=== PATIENT | female | born 1980 | race African-American/Black ===

== ENCOUNTER 2018-12-25 22:16 | Emergency (ER) | payer MEDICAID ==
[~2018-12-25] VITALS: Ht 157.5 cm; Wt 86.2 kg
[2018-12-26 03:18] VITALS: BP 113/65
[2018-12-26] MEDS ORDERED: IBUPROFEN 800 MG TAB PO ONE (04:00)
== END 2018-12-26 04:26 | disposition home or self-care (01) ==
LOC: ER 22:17
DX: S93.402A Sprain of unspecified ligament of left ankle, initial encounter (principal); F17.210 Nicotine dependence, cigarettes, uncomplicated; X50.1XXA Overexertion from prolonged static or awkward postures, initial encounter; Y93.89 Activity, other specified; Y92.89 Other specified places as the place of occurrence of the external cause; Y99.8 Other external cause status
CPT/HCPCS: 73610

== ENCOUNTER 2024-05-10 06:02 | Inpatient (IN) | payer MEDICAID ==
[2024-05-10] VITALS (9 sets, daily range): BP systolic 125; BP diastolic 85; PULSE 99–114; RESP 20–33; TEMP 97.3; O2SAT 88–99
[~2024-05-10] VITALS: Ht 157.5 cm; Wt 109.0 kg
--- NOTE | 2024-05-10 06:52 | ECG ---
[facility] Test Date: 2024-05-10 Test Time: 06:19:45 Pat Name: KOBE GARIBAY Department: ER Room: [address] [place] [address] Gender: F Carpenter Maintenance: CHEKO : 1980 Requested By: FRANCISCO JAVIER HILARIO Order Number: [id number] Reading MD: Srinath Jackman Measurements Intervals [place] Rate: 128 P: 52 AL: 134 QRS: 6 QRSD: 80 T: 3 QT: 309 QTc: 451 Interpretive Statements Sinus tachycardia Ventricular premature complex Aberrant complex Probable left atrial enlargement Borderline T wave abnormalities Electronically Signed On 05-11-2024 17:41:49 PST by Srinath Jackman Please click the below link to view image of tracing.
[2024-05-10] MEDS: ACETAMINOPHEN 500 MG TAB or CAP PO ONE (06:54)
--- NOTE | 2024-05-10 06:55 | ED.PDOC ---
SOB-HPI HPI Comments 43y F who presents to the ED via EMS for chief complaint of flu-like symptoms. Pt states earlier this AM, she has been having shortness of breath for the past few days with associated nasuea, vomiting and diarrhea. EMS upon arrival, noted pt had 02 sat at 85% and pt was given Duo Neb treatment prior to ED arrival. Pt upon ED arrival,taken off oxygen and pt had desaturation to 86% and pt was placed on 15 L via NRB. Pt states she had had recent sick contacts and states she has family member is hospitalized at with similar symptoms. Pt in the ED noted to also be febrile at 102.7 F and heart rate of 122 in the ED. 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 History Social History Smoker: Cigarettes Alcohol: Denies ETOH Use Drugs: Denies Drug Use Lives In: Home Constitutional: denies: chills, diaphoresis, fatigue, fever, malaise, sweats, w eakness, others EENTM: denies: blurred vision, double vision, ear bleeding, ear discharge, ear drainage, ear pain, ear ringing, eye pain, eye redness, hearing loss, mouth pain, mouth swelling, nasal discharge, nose bleeding, nose congestion, nose pain, photophobia, tearing, throat pain, throat swelling, voice changes, others Respiratory: reports: cough, SOB at rest, shortness of breath, SOB with excertion; denies: hemoptysis, orthopnea, stridor, wheezing, others Cardiovascular: denies: chest pain, dizzy spells, diaphoresis, Dyspnea on exertion, edema, irregular heart beat, left arm pain, lightheadedness, palpit ations, PND, syncope, others Gastrointestinal: reports: nausea, vomiting; denies: abdomen distended, abdominal pain, blood streaked bowels, constipated, diarrhea, dysphagia, difficulty swallowing, hematemesis, melena, poor appetite, poor fluid intake, rectal bleeding, rectal pain, others Genitourinary: denies: abnormal vagina bleeding, burning, dyspareunia, dysuria, flank pain, frequency, hematuria, incontinence, pain, , vagina discharge, urgency, others Neurological: denies: dizziness, fainting, headache, left sided numbness, left sided weakness, numbness, paresthesia, pre-existing deficit, right sided numbness, right sided weakness, seizure, speech problems, tingling, tremors, weakness, others Musculoskeletal: denies: back pain, gout, joint pain, joint swelling, muscle pain, muscle stiffness, neck pain, others Integumetry: denies: bruises, change in color, change in hair/nails, dryness, laceration, lesions, lumps, rash, wounds, others Allergic/Immunocompromised: denies: Difficulty Healing, Frequent Infections, Hives, Itching, others Hematologic/Lymphatic: denies: anemia, blood clots, easy bleeding, easy bruising, swollen glands, others Endocrine: denies: excessive hunger, excessive sweating, excessive thirst, excessive urination, flushing, intolerance to cold, intolerance to heat, unexpl ained weight gain, unexplained weight loss, others Psychiatric: denies: anxiety, bipolar disorder, depression, hopeless, panic disorder, schizophrenia, sleepless, suicidal, others All Other Systems: Reviewed and Negative Physical Exam General Appearance: Moderate Distress HEENT: Normal ENT Inspection, Pharynx Normal, TMs Normal Neck: Full Range of Motion, Non-Tender, Normal, Normal Inspection Respiratory: Crackles, Other (Tachypnea) Cardiovascular: Tachycardia Breast Exam: Deferred Gastrointestinal: No Organomegaly, Non Tender, No Pulsatile Mass, Normal Bowel Sounds, Soft Genitalia: Deferred Pelvic: Deferred Rectal: Deferred Extremities: No calf tenderness, Normal capillary refill, Normal inspection, Normal range of motion, Non-tender, No pedal edema Neurologic: Alert, cushion builder II-XII nml as Tested, No Motor Deficits, Normal Affect, Normal Mood, No Sensory Deficits Cerebellar Function: Normal Reflexes: Normal Skin: Dry, Normal Color, Warm Lymphatic: No Adenopathy Was a procedure done? Was a procedure done?: No Differential Dx Differential Diagnosis: CHF, COPD, Pneumonia, Pulmonary Embolism, Respiratory Distress Comments COVID, Influenza A and B, acute respiratory failure X-Ray, Labs, Meds, VS Vital Signs Date Time Temp Pulse Resp B/P (MAP) Pulse Ox O2 Delivery O2 Flow Rate FiO2 05/10/24 07:58 110 22 98 Simple Mask* 6 50 11/21/24 07:58 110 22 125/85 (98) 98 05/10/24 06:46 97.3 122 25 119/77 (91) 96 97.3 05/10/24 06:19 128 05/10/24 06:05 102.7 122 20 127/86 (100) 95 Lab Test 05/10/24 07:13 05/10/24 07:05 05/10/24 06:36 Range/Units Lactic Acid Level 1.7 0.4-2.0 mmol/L Influenza Type A Antigen Positive Negative Influenza Type B Antigen Negative Negative SARS-CoV-2 Antigen (Rapid) Negative NEGATIVE White Blood Count 18.5 H 4.4-10.8 10^3/uL Red Blood Count 4.16 4.0-5.20 10^6/uL Hemoglobin 12.0 L 12.2-16.2 g/dL Hematocrit 36.2 36.0-46.0 % Mean Corpuscular Volume 87.0 80.0-100.0 fL Mean Corpuscular Hemoglobin 28.9 28.0-32.0 pg Mean Corpuscular Hemoglobin Concent 33.2 32.0-36.0 g/dL Red Cell Distribution Width 14.3 11.8-14.3 % Platelet Count 273 140-450 10^3/uL Mean Platelet Volume 8.9 6.9-10.8 fL Neutrophils (%) (Auto) 89.4 H 37.0-80.0 % Lymphocytes (%) (Auto) 5.4 L 10.0-50.0 % Monocytes (%) (Auto) 4.6 0.0-12.0 % Eosinophils (%) (Auto) 0.0 0.0-7.0 % Basophils (%) (Auto) 0.6 0.0-2.0 % Neutrophils # (Auto) 16.5 H 1.6-8.6 10 ^3/uL Lymphocytes # (Auto) 1.0 0.4-5.4 10 ^3/uL Monocytes # (Auto) 0.8 0-1.3 10 ^3/uL Eosinophils # (Auto) 0 0-0.8 10 ^3/uL Basophils # (Auto) 0.1 0-0.2 10 ^3/uL Nucleated Red Blood Cells 0.0 % Sodium Level 138 136-145 mmol/L Potassium Level 2.9 L 3.5-5.1 mmol/L Chloride Level 104 98-107 mmol/L Carbon Dioxide Level 26 20-31 mmol/L Anion Gap 8 5-15 Blood Urea Nitrogen 7 L 9-23 mg/dL Creatinine 0.69 0.550-1.02 mg/dL Glomerular Filtration Rate Calc 112 >90 mL/min BUN/Creatinine Ratio 10.1 10.0-20.0 Serum Glucose 134 H 74-106 mg/dL Calcium Level 8.8 8.7-10.4 mg/dL Troponin I High Sensitivity 136 *H </=34 ng/L Beta HCG, Quantitative 0.1 L 1.5-4.2 mIU/mL Current Medications Medications (Trade) Dose Ordered Sig/Julio Route Start Time Stop Time Status Last Admin Acetaminophen (Tylenol Tablet) 1,000 mg ONCE ONCE PO 05/10/24 06:45 05/10/24 06:46 DC 05/10/24 06:54 [place] [address] Ph: [phone] DIAGNOSTIC IMAGING Diagnostic Imaging Report : [id number] Signed PATIENT: KOBE GARIBAY DENSAMANTHAACCT: [id number] UNIT: [id number] : 1980 LOC: ER ROOM / BED: / AGE / SEX: 43 / F ADM STATUS: REG ER SERVICE 0 ORDERING PHYSICIAN: FRANCISCO JAVIER PIERCE MD PROCEDURE(s): CXRP - CHEST PORTABLE REASON: sob ORDER NUMBER(s): [id number], ACCESSION NUMBER(s): [id number] CHEST RADIOGRAPH Indication: sob Technique: Single frontal view of the chest was obtained Comparison: None FINDINGS: Lines and Tubes: None Lungs: Patchy multifocal opacities in both lungs. Pleura: No effusion. No pneumothorax. Cardiomediastinal contours: Unremarkable Bones: No acute osseous abnormality. IMPRESSION: 1. Patchy multifocal opacities which may reflect multifocal pneumonia in the appropriate clinical setting. Pulmonary nodules not excluded. ATED BY: JERRY YOUNGBLOOD MD DICTATED DATE/TIME: 05/10/24706 SIGNED BY: JERRY YOUNGBLOOD MD SIGNED DATE/TIME: 05/10/24706 CC: Time of 1ST Reevaluation: 07:30 Reevaluation 1ST: Unchanged Patient Education/Counseling: Diagnosis, Treatment Family Education/Counseling: No Family Present Departure 1 Departure Time of Disposition: 08:21 (Patient presenting with symptoms concerning for septic shock. The patient was found to have multifocal pneumonia in the setting of influenza. Patient's chest x-ray was reviewed by me he is concerning for multifocal pneumonia. Patient's labs reviewed by me concerning for sepsis. Patient receiving antibiotics and Tamiflu fluids bolus.) Impression: Primary Impression: Influenza A Additional Impressions: Multifocal pneumonia Sepsis Qualified Codes: A41.9 - Sepsis, unspecified organism; R65.20 - Severe sepsis without septic shock; J96.01 - Acute respiratory failure with hypoxia Acute hypoxic respiratory failure Disposition: ADMITTED INPATIENT Admit to: HEATHER Condition: Guarded Critical Care Note Critical Care Time?: Yes Critical care comment: Acute hypoxic respiratory distress Authorized and Performed by: Francisco Javier Pierce MD Total critical care time: Approximately 42 minutes Due to a high probability of clinically significant, life threatening deterioration, the patient required my highest level of preparedness to intervene emergently and I personally spent this critical care time directly and personally managing the patient. This critical care time included obtaining a history; examining the patient; pulse oximetry; ordering and review of studies; arranging urgent treatment with development of a management plan; evaluation of patient's response to treatment; frequent reassessment; and, discussions with other providers. This critical care time was performed to assess and manage the high probability of imminent, life-threatening deterioration that could result in multi-organ failure. It was exclusive of separately billable procedures and treating other patients and teaching time. Please see my other sections and the rest of the note for further information on patient assessment and treatment. Stability Stability form required: No Heart Score Heart Score: Heart Score Response (Comments) Value History Slightly Suspicious 0 EKG Repolarization Disturb 1 Age <45 0 Risk Factors 1 or 2 risk factors 1 Troponin >3 x's Normal limit 2 Total 4 I personally scribed for FRANCISCO JAVIER PIERCE MD (RUPERT) on 05/10/24 at 06:55. Mary ctronically submitted by Susy Rodriguez ([email or web address]). I personally scribed for FRANCISCO JAVIER PIERCE MD (RUPERT) on 05/10/24 at 07:16. Electronically submitted by Susy Rodriguez ([email or web address]). FRANCISCO JAVIER PIERCE MD May 10, 2024 06:55
--- NOTE | 2024-05-10 07:10 | DVH ---
CHEST RADIOGRAPH Indication: sob Technique: Single frontal view of the chest was obtained Comparison: None FINDINGS: Lines and Tubes: None Lungs: Patchy multifocal opacities in both lungs. Pleura: No effusion. No pneumothorax. Cardiomediastinal contours: Unremarkable Bones: No acute osseous abnormality. IMPRESSION: 1. Patchy multifocal opacities which may reflect multifocal pneumonia in the appropriate clinical set ting. Pulmonary nodules not excluded.
[2024-05-10 07:11] LABS: Chloride 104 mmol/L (98-107); Potassium 2.9 mmol/L (3.5-5.1); Sodium 138 mmol/L (136-145)
[2024-05-10 07:12] LABS: Anion Gap 8 (5-15); Calcium 8.8 mg/dL (8.7-10.4); Carbon Dioxide 26 mmol/L (20-31)
[2024-05-10 07:14] LABS: Basophils # (auto) 0.1 10 ^3/uL (0-0.2); Basophils % (auto) 0.6 % (0.0-2.0); Eosinophils # (auto) 0 10 ^3/uL (0-0.8); Hematocrit 36.2 % (36.0-46.0); Lymphocytes % (auto) 5.4 % (10.0-50.0); Mean Corpuscular Hemoglobin 28.9 pg (28.0-32.0); Mean Corpuscular Hgb Conc. 33.2 g/dL (32.0-36.0); Monocytes # (auto) 0.8 10 ^3/uL (0-1.3); Monocytes % (auto) 4.6 % (0.0-12.0); Neutrophils # (auto) 16.5 10 ^3/uL (1.6-8.6); Neutrophils % (auto) 89.4 % (37.0-80.0); Platelet Count (auto) 273 10^3/uL (140-450); Red Blood Cells 4.16 10^6/uL (4.0-5.20); Red Cell Distribution Width 14.3 % (11.8-14.3); White Blood Cell 18.5 10^3/uL (4.4-10.8)
[2024-05-10 07:17] LABS: BUN/Creatinine Ratio 10.1 (10.0-20.0); Blood Urea Nitrogen 7 mg/dL (9-23); Glucose 134 mg/dL (74-106)
[2024-05-10 07:41] LABS: Rapid Influenza A Positive (Negative); Rapid Influenza B Negative (Negative)
[2024-05-10 07:45] LABS: COVID19 ANTIGEN SOFIA FIA NEGATIVE (NEGATIVE)
[2024-05-10] MEDS: OSELTAMIVIR 75 MG CAP PO ONE (08:38)
[2024-05-10] MEDS: VANCOMYCIN 1GM/250ML KIT 200 ML IV ONE (08:38)
[2024-05-10] MEDS: SODIUM CHLORIDE 0.9% 2,000 ML IV ONE (08:38)
[2024-05-10] MEDS: AZITHROMYCIN 250 MG TAB PO ONE (08:39)
[2024-05-10] MEDS ORDERED: MORPHINE SULFATE INJ 2 MG/ml SYRG IV PRN (08:45)
[2024-05-10] MEDS ORDERED: guaiFENesin-CODEINE Liq 5 ML UD PO PRN (08:45)
[2024-05-10] MEDS ORDERED: ONDANSETRON HCL 4 MG/2 ML VIAL IV PRN (08:45)
[2024-05-10] MEDS ORDERED: ZOLPIDEM TARTRATE 5 MG TAB PO PRN (08:45)
[2024-05-10] MEDS ORDERED: NITROGLYCERIN 0.4 MG SL TAB SL PRN (08:45)
[2024-05-10] MEDS ORDERED: LORazepam 0.5 MG TAB PO PRN (08:45)
[2024-05-10] MEDS ORDERED: DEXTROSE (50%) 50ML SYRG IV PRN (09:00)
[2024-05-10] MEDS: POTASSIUM EFFERVESENT TAB 25 MEQ PO ONE (09:04)
[2024-05-10] MEDS: MAALOX PLUS or MAALOX 30 ML PO ONE (09:09)
[2024-05-10] MEDS: ASPirin 325 MG TAB PO STA (09:10)
[2024-05-10] MEDS: CLOPIDOGREL BISULFATE 75 MG TAB PO STA (09:11)
[2024-05-10] MEDS: IPRATROPIUM BROM 0.5 MG/2.5ML INH SOL NEB PRN (09:35)
[2024-05-10] MEDS: ALBUTEROL SULF 2.5 MG/0.5ML(0.5%) NEB SOLN NEB PRN (09:35)
[2024-05-10] MEDS: CLOPIDOGREL BISULFATE 75 MG TAB PO SCH (10:00)
[2024-05-10] MEDS: DOCUSATE SOD 100 MG CAP PO SCH (10:00)
[2024-05-10] MEDS: ASPirin 81 mg TAB PO SCH (10:00)
[2024-05-10] MEDS: OSELTAMIVIR 75 MG CAP PO SCH (10:00)
[2024-05-10] MEDS ORDERED: ENOXAPARIN SOD 100 MG/1 ML SYRINGE SC SCH (10:00)
[2024-05-10] MEDS: METOPROLOL TARTRATE 25 MG TAB PO SCH (10:12)
[2024-05-10] MEDS: LISINOPRIL 5 MG TAB PO SCH (10:12)
[2024-05-10] MEDS: predniSONE 20 MG TAB PO SCH (10:13)
[2024-05-10] MEDS: ENOXAPARIN SOD 120 MG/0.8 ML SYRINGE SC SCH (10:13)
--- NOTE | 2024-05-10 10:41 | DVHHP2 ---
History of Present Illness Reason for Visit: shortness of breath chest pain History of Present Illness 43 yo obese patient with cough nausea vomiting active worsening chest pain came to the ed for evaluation of severe hypoxia found to have multifocal pna hypoxia with complainants of chest pain trouble catching her breath as well as trouble managing chest pain patient was found to have elevated trops postive pna Cardiovascular: CAD, HTN Pulmonary: Pneumonia Endocrine: Diabetes Review of Systems Constitutional: Yes: Weakness; No: Fever, Chills, Sweats, Malaise, Other Eyes: No: Pain, Vision change, Conjunctivae inflammation, Eyelid inflammation, Other, Redness ENT: No: Ear pain, Ear discharge, Nose pain, Nose discharge, Nose congestion, Mouth pain, Mouth swelling, Throat pain, Throat swelling, Other Respiratory: Cough, Shortness of breath; No: Dry, SOB with excertion, Wheezing, Hemoptysis, Pleuritic Pain, Sputum, Wheezing, Other Cardiovascular: Chest Pain, Palpitations; No: Orthopnea, Paroxysmal Noc. Dyspnea, Edema, Lt Headedness, Other Gastrointestinal: Nausea, Vomiting; No: Abdominal Pain, Diarrhea, Constipation, Melena, Hematochezia, Other Genitourinary: No Dysuria, No Frequency, No Incontinence, No Hematuria, No Retention, No Other Musculoskeletal: No: other, neck pain, shoulder pain, arm pain, back pain, hand pain, leg pain, foot pain Skin: No: Rash, Lesions, Jaundice, Bruising, Other Neurological: No: Weakness, Numbness, Incoordination, Change in speech, Confusion, Seizures, Other Allergies: Coded Allergies: NO KNOWN ALLERGIES (Unverified , 06/28/12) Medications Current Medications Medications Dose Ordered Sig/Julio Route Start Time Stop Time Status Last Admin Dose Admin Oseltamivir Phosphate 75 mg DAILY PO 05/10/24 10:00 05/15/24 09:59 Albuterol 2.5 mg Q4HWA PRN NEB 05/10/24 08:45 05/10/24 09:35 2.5 MG Ipratropium [place] 0.5 mg Q4HWA PRN NEB 05/10/24 08:45 05/10/24 09:35 0.5 MG Prednisone 40 mg DAILY PO 05/10/24 10:00 05/10/24 10:13 40 MG Cefepime HCl 50 ml @ 12.5 mls/hr Q8HR IV 05/10/24 14:00 Aspirin 81 mg DAILY PO 05/10/24 10:00 Clopidogrel Bisulfate 75 mg DAILY PO 05/10/24 10:00 Atorvastatin Calcium 80 mg HS PO 05/10/24 22:00 Metoprolol Tartrate 25 mg Q12HR PO 05/10/24 10:00 05/10/24 10:12 25 MG Acetaminophen 650 mg Q6HP PRN PO 05/10/24 08:45 Zolpidem Tartrate 5 mg QHSP PRN PO 05/10/24 08:45 Lorazepam 0.5 mg Q6HP PRN PO 05/10/24 08:45 Docusate Sodium 100 mg DAILY PO 05/10/24 10:00 Enoxaparin Sodium 100 mg Q12HR SC 05/10/24 10:00 UNV Ondansetron HCl 4 mg Q4HP PRN IV 05/10/24 08:45 Lisinopril 10 mg DAILY PO 05/10/24 10:00 05/10/24 10:12 10 MG Nitroglycerin 0.4 mg Q5MINP PRN SL 05/10/24 08:45 Morphine Sulfate 2 mg Q30M PRN IV 05/10/24 08:45 Guaifenesin/ Codeine Phosphate 10 ml Q6HP PRN PO 05/10/24 08:45 Diagnostic Test (Pha) 1 strip IQ4HR 05/10/24 12:00 Insulin Human Regular IQ4HR SC 05/10/24 12:00 Dextrose 50 ml UD PRN IV 05/10/24 09:00 Enoxaparin Sodium 110 mg Q12HR SC 05/10/24 10:00 05/10/24 10:13 110 MG Exam Vital Signs Vital Signs Date Time Temp Pulse Resp B/P (MAP) Pulse Ox O2 Delivery O2 Flow Rate FiO2 05/10/24 10:12 134/91 05/10/24 10:12 108 05/10/24 10:00 97.3 22 94 7.0 97.3 05/10/24 09:35 Simple Mask* 60 General Appearance: Alert, Oriented X3, moderate distress HEENT: Atraumatic, PERRLA Respiratory: Clear to auscultation, Normal air movement Cardiovascular: Regular rate, Normal S1, Normal S2 Abdominal: Normal bowel sounds, Soft, No tenderness Extremities: No clubbing, No cyanosis, No edema Skin: No rashes, No breakdown, No significant lesion Neuro: Normal gait, Normal speech Psych/Mental Status: Mood NL Labs/Xrays Labs Test 05/10/24 08:46 05/10/24 07:13 05/10/24 07:05 05/10/24 06:36 Range/Units Troponin I High Sensitivity 166 *H </=34 ng/L Lactic Acid Level 1.7 0.4-2.0 mmol/L Influenza Type A Antigen Positive Negative Influenza Type B Antigen Negative Negative SARS-CoV-2 Antigen (Rapid) Negative NEGATIVE White Blood Count 18.5 H 4.4-10.8 10^3/uL Red Blood Count 4.16 4.0-5.20 10^6/uL Hemoglobin 12.0 L 12.2-16.2 g/dL Hematocrit 36.2 36.0-46.0 % Mean Corpuscular Volume 87.0 80.0-100.0 fL Mean Corpuscular Hemoglobin 28.9 28.0-32.0 pg Mean Corpuscular Hemoglobin Concent 33.2 32.0-36.0 g/dL Red Cell Distribution Width 14.3 11.8-14.3 % Platelet Count 273 140-450 10^3/uL Mean Platelet Volume 8.9 6.9-10.8 fL Neutrophils (%) (Auto) 89.4 H 37.0-80.0 % Lymphocytes (%) (Auto) 5.4 L 10.0-50.0 % Monocytes (%) (Auto) 4.6 0.0-12.0 % Eosinophils (%) (Auto) 0.0 0.0-7.0 % Basophils (%) (Auto) 0.6 0.0-2.0 % Neutrophils # (Auto) 16.5 H 1.6-8.6 10 ^3/uL Lymphocytes # (Auto) 1.0 0.4-5.4 10 ^3/uL Monocytes # (Auto) 0.8 0-1.3 10 ^3/uL Eosinophils # (Auto) 0 0-0.8 10 ^3/uL Basophils # (Auto) 0.1 0-0.2 10 ^3/uL Nucleated Red Blood Cells 0.0 % Sodium Level 138 136-145 mmol/L Potassium Level 2.9 L 3.5-5.1 mmol/L Chloride Level 104 98-107 mmol/L Carbon Dioxide Level 26 20-31 mmol/L Anion Gap 8 5-15 Blood Urea Nitrogen 7 L 9-23 mg/dL Creatinine 0.69 0.550-1.02 mg/dL Glomerular Filtration Rate Calc 112 >90 mL/min BUN/Creatinine Ratio 10.1 10.0-20.0 Serum Glucose 134 H 74-106 mg/dL Calcium Level 8.8 8.7-10.4 mg/dL Beta HCG, Quantitative 0.1 L 1.5-4.2 mIU/mL Assessment/Plan Assessment/Plan Admit Tele Multifocal PNA FLU A positive suspected super imposed bacterial infection IV abx cefepime continued Oseltamivir daily PRN breathing treatments steroids daily patient intermittent Hypoxia RT to follow for breathing treatments Nstemi chest pain protocol morbidly obese patient BMI > 44 Asa Plavix lovenox theraputic Trops elevated suspeced demand ischemia during hypoxia cardio evaluation for possible cath montior closely suspected high risk tachypnea respiratory failure possible monitor for intubation needs if no improvement DM no stated history of DM 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 with hyperglycemia sliding scale while in patient and while on steroids Plan discussed with: Patient My Orders Orders - KOKI STARK MD Procedure Category Date Status Time Oseltamivir 75mg PHA 05/10/24 In Process Capsule (Tamiflu 75mg 10:00 Albuterol Medneb PHA 05/10/24 In Process (Ventolin Medneb) 08:45 Ipratropium Medneb PHA 05/10/24 In Process (Atrovent Medneb) 08:45 Med Neb Initial RT 05/10/24 Logged Treatment 08:36 Prednisone Tablet PHA 05/10/24 In Process 10:00 Cefepime 1gm/ 50ml PHA 05/10/24 In Process (Maxipime 1gm/50ml) 14:00 Admit ADMIT 05/10/24 Transmitted 08:36 Code Status CODE 05/10/24 Transmitted 08:36 Vital Signs MIGUELINA 05/10/24 In Process 08:36 Cardiac DIET 05/10/24 Transmitted Diet-2gna,Lofat,Lochol Breakfast Aspirin Tablet PHA 05/10/24 In Process 10:00 Clopidogrel Bisulfate PHA 05/10/24 In Process (Plavix) 10:00 Atorvastatin (Lipitor) PHA 05/10/24 In Process 22:00 Metoprolol Tartrate PHA 05/10/24 In Process Tablet (Lopressor Ta 10:00 Acetaminophen Tablet PHA 05/10/24 In Process (Tylenol Tablet) 08:45 Zolpidem Tartrate PHA 05/10/24 In Process (Ambien) 08:45 Lorazepam Tablet PHA 05/10/24 In Process (Ativan Tablet) 08:45 Docusate Sodium PHA 05/10/24 In Process Capsule (Colace 10:00 Complete Blood Count LAB 05/11/24 Verified 04:00 Basic Metabolic Panel LAB 05/11/24 Verified 04:00 Ondansetron Hcl PHA 05/10/24 In Process (Zofran) 08:45 Electrocardigram EKG 05/10/24 Logged 08:36 Lisinopril Tablet PHA 05/10/24 In Process (Zestril Tablet) 10:00 Nitroglycerin PHA 05/10/24 In Process Sublingual (Ntrostat 08:45 Morphine Sulfate PHA 05/10/24 In Process Injection 08:45 Stat Ekg For Chest [facility] 05/10/24 In Process Pain 10:20 Notify Of Changes [facility] 05/10/24 In Process From Base 08:36 Horse Identifier For [facility] 05/10/24 In Process 24 Hours 08:36 Emergency Dysrhythmia [facility] 05/10/24 In Process Protocol 08:36 Rhythm Strips Once [facility] 05/10/24 In Process Every Shift 08:36 Oxygen By Nasal RT 05/10/24 Transmitted Cannula 08:36 Electrocardigram EKG 05/10/24 Logged 11:36 Guaifenesin-Codeine PHA 05/10/24 In Process Liquid (Robitussin/C 08:45 * Cardiology Consult CONS 05/10/24 Transmitted 08:36 Glucose Blood PHA 05/10/24 In Process (Accu-Chek Comfort 12:00 Insulin R (Human) PHA 05/10/24 In Process (Insulin R) 12:00 Dextrose 50% Syringe PHA 05/10/24 In Process 09:00 Enoxaparin Sodium PHA 05/10/24 In Process (Lovenox) 10:00 Problem List: (1) NSTEMI (non-ST elevation myocardial infarction) (2) Sepsis (3) Influenza A (4) Multifocal pneumonia (5) Acute hypoxic respiratory failure Date of Service: May 10, 2024 Billing Provider: KOKI STARK MD Common Visit Codes: 25231-[id number] INP/OBS CARE (HIGH) KOKI STARK MD May 10, 2024 10:41
[2024-05-10] MEDS: CEFEPIME 2GM/50ML NS 50 ML IV ONE (11:51)
[2024-05-10 12:04] LABS: Base Excess 2.7 mmol/L (-2.0-3.0)
[2024-05-10] MEDS: LORazepam 0.5 MG TAB PO ONE (12:55)
[2024-05-10] MEDS: ACCU-CHEK COMFORT CURVE STRIP VI SCH (12:55)
[2024-05-10] MEDS: InsuLIN REG 1unit/0.01ml Soln (100units/ml) SC SCH (12:56)
[2024-05-10] MEDS: CEFEPIME 1GM/ 50ML 50 ML IV SCH (13:01)
--- NOTE | 2024-05-10 14:41 | DVHPN2 ---
Assessment/Plan Assessment/Plan ICU progress note Subjective 43-year-old female with hypertension, morbid obesity admitted for NSTEMI and flu a. Objective Physical exam Alert, oriented x3 PERRLA Unable to speak in full sentences Increased work of breathing Morbidly obese Scattered rhonchi S1-S2 tachycardia Abdomen soft nontender Moving all four extremities No lower extremity edema Lab Flu a positive Leukocytosis Troponin elevation Hypokalemia EKG Sinus tach with PVCs Imaging Multiple nodular opacity in chest x-ray Assessment and plan Acute hypoxic respiratory failure Influenza a Superimposed with pneumonia, possible staph aureus Obesity Hypertension Hypokalemia Type 2 IL demand ischemia Admit to the OU If able put on high-flow nasal cannula Maintain oxygen saturation above 94% Tamiflu Cefepime and vancomycin MRSA swab Sputum culture Replete potassium We will hold antihypertensive for now Pulmonary consult Low threshold for intubation Prednisone 40 mg daily Q.4 albuterol and ipratropium Lines PIV Maintain potassium of 4, phosphate of 3 and magnesium of 2 Diet NPO DVT prophylaxis Lovenox Code status full code Goals of care on limited Patient is okay with intubation More than 30 minutes spent in advanced care planning, including discussing code status, medical decision maker, goals of care and disposition planning. 92 critical care time spent on this patient including evaluation, chart review, formulating plan and communication with team, excluding any procedures or point of care imaging Plan discussed with: Patient My Orders Orders - KENNEDY PRIEST MD Procedure Category Date Status Time Potassium Chl PHA 05/10/24 In Process 20meq/100ml 13:00 Magnesium Sulfate PHA 05/10/24 In Process 1gm/100ml 13:00 Respiratory Culture AGA 05/10/24 Logged W/ Gs 13:01 *Consult CONS 05/10/24 Transmitted / 13:42 Transfer Orders XFER 05/10/24 Transmitted 13:57 Date of Service: May 10, 2024 Billing Provider: KENNEDY PRIEST MD Common Visit Codes: [id number] INP/OBS CARE(HIGH), 88492-[id number] CARE 30-74 MIN, 51048-[id number] CARE-EACH +30MIN Secondary Visit Codes: 84162-RUBOVJRG CARE PLAN 30 MINUTES KENNEDY PRIEST MD May 10, 2024 14:41
[2024-05-10] MEDS: POTASSIUM CHL 20MEQ/100ML 100 ML IV SCH (14:54)
[2024-05-10] MEDS: MAGNESIUM SULFATE 1GM/100ML 100 ML IV SCH (14:54)
--- NOTE | 2024-05-10 19:06 | DVHINCON2 ---
Date of service: May 10, [address] Hale Reason for Consultation Acute hypoxic respiratory failure, multifocal pneumonia History of Present Illness 43-year-old woman history of CAD, hypertension who presented with worsening chest pain. Patient was found to have severe hypoxia and multifocal pneumonia on chest x-ray. She was found to have elevated troponins. Pulmonary consultation is called for evaluation of acute hypoxic respiratory failure and multifocal pneumonia. Review of systems: Cough, shortness of breath, generalized weakness, chest pain and palpitations, nausea and vomiting. 14 point review of systems is negative unless otherwise noted above. Past medical history: CAD, hypertension, diabetes mellitus type 2 Past surgical history: None mentioned in prior surgeries. Medications: Reviewed Allergies: No known drug allergies. Family history: No family history of premature CAD. No family history of lung disease. Social history: Cigarette smoker. No alcohol or illicit drug use. Lives at home Allergies: Coded Allergies: NO KNOWN ALLERGIES (Unverified , 06/28/12) Current Medications Current Medications Medications (Trade) Dose Ordered Sig/Julio Route PRN Reason Start Time Stop Time Status Last Admin Oseltamivir Phosphate (Tamiflu 75MG Capsule) 75 mg DAILY PO 05/10/24 10:00 05/15/24 09:59 Albuterol (Ventolin Medneb) 2.5 mg Q4HWA PRN NEB SHORTNESS OF BREATH 05/10/24 08:45 05/10/24 17:59 Ipratropium [place] (Atrovent Medneb) 0.5 mg Q4HWA PRN NEB SHORTNESS OF BREATH 05/10/24 08:45 05/10/24 17:59 Prednisone 40 mg DAILY PO 05/10/24 10:00 05/10/24 10:13 Cefepime HCl 50 ml @ 12.5 mls/hr Q8HR IV 05/10/24 14:00 Aspirin 81 mg DAILY PO 05/10/24 10:00 Aspirin 325 mg ONCE STAT PO 05/10/24 08:36 05/10/24 09:04 DC 05/10/24 09:10 Clopidogrel Bisulfate (Plavix) 75 mg DAILY PO 05/10/24 10:00 05/10/24 12:53 DC Atorvastatin Calcium (Lipitor) 80 mg HS PO 05/10/24 22:00 Metoprolol Tartrate (Lopressor Tablet) 25 mg Q12HR PO 05/10/24 10:00 05/10/24 10:12 Acetaminophen (Tylenol Tablet) 650 mg Q6HP PRN PO MILD PAIN (1-3 PAIN SCALE) 05/10/24 08:45 Zolpidem Tartrate (Ambien) 5 mg QHSP PRN PO FOR INSOMNIA 05/10/24 08:45 05/10/24 12:53 DC Lorazepam (Ativan Tablet) 0.5 mg Q6HP PRN PO ANXIETY 05/10/24 08:45 05/10/24 12:53 DC Docusate Sodium (Colace Capsule) 100 mg DAILY PO 05/10/24 10:00 Enoxaparin Sodium (Lovenox) 100 mg Q12HR SC 05/10/24 10:00 UNV Ondansetron HCl (Zofran) 4 mg Q4HP PRN IV NAUSEA / VOMITING 05/10/24 08:45 05/10/24 12:53 DC Clopidogrel Bisulfate (Plavix) 300 mg ONCE STAT PO 05/10/24 08:36 05/10/24 09:05 DC 05/10/24 09:11 Lisinopril (Zestril Tablet) 10 mg DAILY PO 05/10/24 10:00 05/10/24 10:12 Nitroglycerin (Ntrostat Sublingual) 0.4 mg Q5MINP PRN SL FOR CHEST PAIN 05/10/24 08:45 05/10/24 12:53 DC Morphine Sulfate 2 mg Q30M PRN IV FOR CHEST PAIN 05/10/24 08:45 05/10/24 12:53 DC Guaifenesin/ Codeine Phosphate (Robitussin/ Codeine Liq) 10 ml Q6HP PRN PO FOR COUGH 05/10/24 08:45 05/10/24 12:53 DC Diagnostic Test (Pha) (Accu-Chek Comfort Curve T) 1 strip IQ4HR 05/10/24 12:00 Insulin Human Regular (InsuLIN R) IQ4HR SC 05/10/24 12:00 Dextrose 50 ml UD PRN IV Blood Sugar LESS THAN 60 05/10/24 09:00 Enoxaparin Sodium (Lovenox) 110 mg Q12HR SC 05/10/24 10:00 05/10/24 12:53 DC 05/10/24 10:13 Potassium Chloride 100 ml @ 50 mls/hr Q2H IV 05/10/24 13:00 05/10/24 16:59 DC 05/10/24 17:01 Magnesium Sulfate/ Dextrose 100 ml @ 100 mls/hr Q1HR IV 05/10/24 13:00 05/10/24 14:59 DC 05/10/24 15:39 Vital Signs Vital Signs Date Time Temp Pulse Resp B/P (MAP) Pulse Ox O2 Delivery O2 Flow Rate FiO2 05/10/24 18:00 114 24 94 05/10/24 18:00 Mask 8.0 05/10/24 18:00 127/81 (96) 05/10/24 18:00 60 05/10/24 10:00 97.3 97.3 Physical Exam Gen.: Patient lying in bed in no apparent distress. On supplemental oxygen. Head: Normocephalic, atraumatic Eyes: EOMI/PERRLA. Ears: Normal hearing. Normal anatomy. Neck/trachea: Trachea midline, supple. Nose: Normal external anatomy. Mouth: Moist mucous membranes. Chest: Fair air entry bilaterally. No wheezing. Scattered rhonchi. Cardio vascular: Positive S1, positive S2. Regular rate and rhythm. Abdomen: Positive bowel sounds in all 4 quadrants. Soft, non-tender, non- distended. : Deferred. Rectal: Deferred Skin: Warm, dry. Extremities: 2+ radial pulses bilaterally. No lower extremity edema. Neuro: Awake, alert, oriented x3. No gross motor or sensory deficits. Cranial nerves II through XII intact. Gait not assessed. Labs/Diagnostic Data Labs Test 05/10/24 16:05 05/10/24 11:53 05/10/24 10:41 05/10/24 07:13 Range/Units Blood Gas Specimen Type Arterial Blood Gas Sample Site Left radial Blood Gas Patient Temperature 37.0 Arterial Blood Date Drawn [id number] Arterial Blood pH 7.396 7.350-7.450 Arterial Blood Partial Pressure CO2 37.5 32.0-45.0 mmHg Arterial Blood Partial Pressure O2 67.7 L 83.0-108.0 mmHg Arterial Blood HCO3 22.5 21.0-28.0 mmol/L Arterial Blood Oxygen Saturation 93.0 L 94.0-98.0 % Arterial Blood Base Excess -2.0 -2.0-3.0 mmol/L Arterial Blood Oxyhemoglobin 91.6 L 94.0-98.0 % Arterial Blood Carboxyhemoglobin 1.0 0.5-1.5 % Arterial Blood Methemoglobin 0.5 0.0-1.5 % Juan Pablo Test Yes Blood Gas Total Hemoglobin 12.50 12.0-16.0 g/dL Blood Gas Liter Flow 8.00 Blood Gas Modality Mask - simple FiO2 % 52.0 Blood Gas Critical Value Read Back yes Blood Gas Notified Whom gabriela Spencer md Blood Gas Notified Time [id number] Blood Gas Notified By Troponin I High Sensitivity 135 *H </=34 ng/L Lactic Acid Level 1.7 0.4-2.0 mmol/L Test 05/10/24 07:05 05/10/24 06:36 Range/Units Influenza Type A Antigen Positive Negative Influenza Type B Antigen Negative Negative SARS-CoV-2 Antigen (Rapid) Negative NEGATIVE White Blood Count 18.5 H 4.4-10.8 10^3/uL Red Blood Count 4.16 4.0-5.20 10^6/uL Hemoglobin 12.0 L 12.2-16.2 g/dL Hematocrit 36.2 36.0-46.0 % Mean Corpuscular Volume 87.0 80.0-100.0 fL Mean Corpuscular Hemoglobin 28.9 28.0-32.0 pg Mean Corpuscular Hemoglobin Concent 33.2 32.0-36.0 g/dL Red Cell Distribution Width 14.3 11.8-14.3 % Platelet Count 273 140-450 10^3/uL Mean Platelet Volume 8.9 6.9-10.8 fL Neutrophils (%) (Auto) 89.4 H 37.0-80.0 % Lymphocytes (%) (Auto) 5.4 L 10.0-50.0 % Monocytes (%) (Auto) 4.6 0.0-12.0 % Eosinophils (%) (Auto) 0.0 0.0-7.0 % Basophils (%) (Auto) 0.6 0.0-2.0 % Neutrophils # (Auto) 16.5 H 1.6-8.6 10 ^3/uL Lymphocytes # (Auto) 1.0 0.4-5.4 10 ^3/uL Monocytes # (Auto) 0.8 0-1.3 10 ^3/uL Eosinophils # (Auto) 0 0-0.8 10 ^3/uL Basophils # (Auto) 0.1 0-0.2 10 ^3/uL Nucleated Red Blood Cells 0.0 % Sodium Level 138 136-145 mmol/L Potassium Level 2.9 L 3.5-5.1 mmol/L Chloride Level 104 98-107 mmol/L Carbon Dioxide Level 26 20-31 mmol/L Anion Gap 8 5-15 Blood Urea Nitrogen 7 L 9-23 mg/dL Creatinine 0.69 0.550-1.02 mg/dL Glomerular Filtration Rate Calc 112 >90 mL/min BUN/Creatinine Ratio 10.1 10.0-20.0 Serum Glucose 134 H 74-106 mg/dL Calcium Level 8.8 8.7-10.4 mg/dL Beta HCG, Quantitative 0.1 L 1.5-4.2 mIU/mL Assessment Impression: Acute hypoxic respiratory failure Multifocal pneumonia Influenza type a Nicotine dependence Morbid obesity with a BMI of 44 Anxiety Hypokalemia Plan: Supplemental oxygen . on 8 L via simple mask Keep O2 saturation above 92%. Continue antibiotics Send sputum for Gram stain and culture if able to produce. Tamiflu course for influenza type A Chest x-ray imaging report reviewed. Multifocal pneumonia. Continue antibiotics. Send sputum for Gram stain and culture if able to produce. Bronchodilators Anxiolytic as needed Monitor electrolytes. Supplement potassium. Smoking cessation discussed for greater than 10 minutes. Accu-Cheks, insulin sliding scale Prognosis: Guarded given multiple comorbidities. Rest of plan per hospitalist and other consultants. Thank you Dr. Hale for allowing me to participate in this patient's care. Further recommendations will depend on patient's clinical course. Please do not hesitate to contact me if you have any questions or concerns. This medical document was created using an electronic medical record system with [employer] system. Although this document has been carefully reviewed, there may still be some phonetic and typographical errors. These areas are purely typographical due to imperfections of the software programs, and do not reflect any compromise in the patient's medical care. Plan discussed with: Patient, Other (RN, MD) ARTHUR WEBB MD May 10, 2024 19:06
[2024-05-10] MEDS: ATORVASTATIN 20 MG TAB PO SCH (21:52)
[2024-05-10] MEDS: MORPHINE SULFATE INJ 2 MG/ml SYRG IV PRN (22:34)
[2024-05-11 06:05] LABS: Basophils # (auto) 0 10 ^3/uL (0-0.2); Basophils % (auto) 0.2 % (0.0-2.0); Eosinophils # (auto) 0 10 ^3/uL (0-0.8); Hematocrit 31.9 % (36.0-46.0); Hemoglobin 10.7 g/dL (12.2-16.2); Lymphocytes # (auto) 1.1 10 ^3/uL (0.4-5.4); Lymphocytes % (auto) 6.3 % (10.0-50.0); Mean Corpuscular Hemoglobin 29.2 pg (28.0-32.0); Mean Corpuscular Hgb Conc. 33.5 g/dL (32.0-36.0); Monocytes % (auto) 5.5 % (0.0-12.0); Neutrophils # (auto) 15.3 10 ^3/uL (1.6-8.6); Nucleated Red Blood Cells % 0.1 %; Platelet Count (auto) 263 10^3/uL (140-450); Red Blood Cells 3.66 10^6/uL (4.0-5.20); Red Cell Distribution Width 14.6 % (11.8-14.3); White Blood Cell 17.3 10^3/uL (4.4-10.8)
[2024-05-11 06:23] LABS: Alanine Aminotransferase 11 U/L (7-40); Alkaline Phosphatase 69 U/L (46-116); Anion Gap 5 (5-15); BUN/Creatinine Ratio 13.6 (10.0-20.0); Blood Urea Nitrogen 8 mg/dL (9-23); Calcium 8.3 mg/dL (8.7-10.4); Carbon Dioxide 29 mmol/L (20-31); Chloride 105 mmol/L (98-107); Glucose 130 mg/dL (74-106); Magnesium 2.5 mg/dL (1.6-2.6); Potassium 3.6 mmol/L (3.5-5.1); Sodium 139 mmol/L (136-145)
[2024-05-11 06:24] LABS: Albumin 3.3 g/dL (3.2-4.8); Aspartate Aminotransferase 35 U/L (13-40); Bilirubin, Total 0.6 mg/dL (0.2-1.0); Phosphorus 1.4 mg/dL (2.4-5.1); Total Protein 6.7 g/dL (5.7-8.2)
[2024-05-11 06:27] VITALS: PULSE 115; RESP 24; O2SAT 93; O2SAT 94
[2024-05-11] MEDS: ACETAMINOPHEN 325 MG TAB PO PRN (08:32)
[2024-05-11] MEDS ORDERED: VANCOMYCIN PER PHARMACY 0 MG IV SCH (09:00)
[2024-05-11 09:18] VITALS: BP 133/92; PULSE 124; RESP 26; O2SAT 94
[2024-05-11 09:35] LABS: Base Excess 3.3 mmol/L (-2.0-3.0)
[2024-05-11] MEDS: VANCOMYCIN 1GM/250ML KIT 200 ML IV SCH (10:26)
[2024-05-11] MEDS ORDERED: TIZA1TAB20 PO (10:54)
[2024-05-11] MEDS ORDERED: BUPR-60 PO (10:54)
[2024-05-11] MEDS ORDERED: [UNRECOGNIZED DRUG - CODE] SC (10:54)
[2024-05-11] MEDS ORDERED: ERGO1CAP23 PO (10:54)
[2024-05-11] MEDS ORDERED: MELO7.5T7 PO (10:54)
[2024-05-11] MEDS ORDERED: HYDR12.59 PO (10:54)
[2024-05-11 13:14] VITALS: BP 126/78; PULSE 104; RESP 24; O2SAT 96
[2024-05-11 16:10] LABS: Urine Bacteria None Seen /hpf (None Seen)
[2024-05-11 16:38] LABS: Urine Blood TRACE /uL (Negative); Urine Clarity Clear (Clear); Urine Color Yellow (Yellow); Urine Mucus FEW (None Seen); Urine Protein, UAD 2+ (Negative); Urine Specific Gravity 1.027 (1.001-1.035); Urine Urobilinogen 2 mg/dL (Negative); Urine WBC 4 /hpf (0 - 5); Urine pH 6.5 (5.0-9.0)
[2024-05-11 18:49] VITALS: BP 125/83; PULSE 103; RESP 30; O2SAT 94
[2024-05-11] MEDS ORDERED: HYDROcodone-ACET 5/325MG TAB PO PRN (19:00)
[2024-05-11] MEDS: ONDANSETRON HCL 4 MG/2 ML VIAL IV ONE (19:22)
[2024-05-11 20:15] VITALS: PULSE 96; RESP 30; O2SAT 96
--- NOTE | 2024-05-11 20:48 | DVHPN2 ---
Progress Note - Dictate Date Seen: May 11, 2024 Medical Necessity Reason Pt with a Central, PICC or Fol: No Subjective Patient seen and examined at bedside. Remains on supplemental oxygen Overnight events reviewed. vital signs Vital Sign Date Time Temp Pulse Resp B/P (MAP) Pulse Ox O2 Delivery O2 Flow Rate FiO2 05/11/24 20:15 96 30 96 Simple Mask* 10 99 05/11/24 20:02 127/82 05/11/24 18:52 99.0 99.0 Total Intake and Output 05/10/24 05/10/24 05/11/24 15:00 23:00 07:00 Intake Total 100 ml 50 ml Balance 100 ml 50 ml medications Current Medications Medications Dose Ordered Sig/Julio Route Start Time Stop Time Status Last Admin Dose Admin Oseltamivir Phosphate 75 mg DAILY PO 05/10/24 10:00 05/15/24 09:59 05/11/24 11:28 75 MG Albuterol 2.5 mg Q4HWA PRN NEB 05/10/24 08:45 05/11/24 18:49 2.5 MG Ipratropium [place] 0.5 mg Q4HWA PRN NEB 05/10/24 08:45 05/11/24 18:49 0.5 MG Prednisone 40 mg DAILY PO 05/10/24 10:00 05/11/24 10:27 40 MG Cefepime HCl 50 ml @ 12.5 mls/hr Q8HR IV 05/10/24 14:00 05/11/24 14:19 12.5 MLS/HR Aspirin 81 mg DAILY PO 05/10/24 10:00 05/11/24 10:27 81 MG Atorvastatin Calcium 80 mg HS PO 05/10/24 22:00 05/10/24 21:52 80 MG Metoprolol Tartrate 25 mg Q12HR PO 05/10/24 10:00 05/11/24 10:30 25 MG Acetaminophen 650 mg Q6HP PRN PO 05/10/24 08:45 05/11/24 15:54 650 MG Docusate Sodium 100 mg DAILY PO 05/10/24 10:00 05/11/24 10:28 100 MG Enoxaparin Sodium 100 mg Q12HR SC 05/10/24 10:00 UNV Lisinopril 10 mg DAILY PO 05/10/24 10:00 05/11/24 10:31 10 MG Diagnostic Test (Pha) 1 strip IQ4HR 05/10/24 12:00 05/11/24 20:08 1 STRIP Insulin Human Regular IQ4HR SC 05/10/24 12:00 05/11/24 16:51 2 UNITS Dextrose 50 ml UD PRN IV 05/10/24 09:00 Morphine Sulfate 2 mg Q4HPRN PRN IV 05/10/24 22:15 05/11/24 19:23 2 MG Vancomycin HCl 0 ml @ 0 mls/hr UD IV 05/11/24 09:00 Vancomycin HCl 200 ml @ 200 mls/hr Q8H IV 05/11/24 10:00 05/11/24 18:12 200 MLS/HR Acetaminophen/ Hydrocodone Bitart 1 tab Q6HPRN PRN PO 05/11/24 19:00 objective Gen.: Patient lying in bed in no apparent distress. On supplemental oxygen. Head: Normocephalic, atraumatic. Eyes: EOMI/PERRLA. Ears: Normal hearing. Normal anatomy. Neck/trachea: Trachea midline, supple. Nose: Normal external anatomy. Mouth: Moist mucous membranes. Chest: Decreased air entry bilaterally. No wheezing or rhonchi. Cardiovascular: Positive S1, positive S2. Regular rate and rhythm. Abdomen: Positive bowel sounds in all 4 quadrants. Soft, non-tender, non- distended. : Deferred. Rectal: Deferred. Skin: Warm, dry. Intact. Extremities: 2+ radial pulses bilaterally. No lower extremity edema. Neuro: Awake, alert, oriented x3. No gross motor or sensory deficits. Cranial nerves II through XII intact. Gait not assessed. laboratory and microbiology Laboratory Tests 05/11/24 05:44 Test 05/11/24 05:44 Range/Units Serum Glucose 130 H 74-106 mg/dL Assessment/Plan Impression: Acute hypoxic respiratory failure Multifocal pneumonia Influenza type a Nicotine dependence Morbid obesity with a BMI of 44 Anxiety Hypokalemia Events: Remains on high flow O2 at flow rate 40 LPM, FiO2 60% Taper O2 as tolerated Continue Tamiflu. Continue bronchodilators Continue antibiotics Pain control Avoid oversedation Diet and lifestyle modifications for weight reduction Labs and imaging reviewed. Rest of plan as noted below. Plan: Supplemental oxygen . Keep O2 saturation above 92%. Continue antibiotics Send sputum for Gram stain and culture if able to produce. Tamiflu course for influenza type A Chest x-ray imaging report reviewed. Multifocal pneumonia. Continue antibiotics. Send sputum for Gram stain and culture if able to produce. Bronchodilators Anxiolytic as needed Monitor electrolytes. Supplement potassium. Smoking cessation discussed for greater than 10 minutes. Accu-Cheks, insulin sliding scale Prognosis: Guarded given multiple comorbidities. Condition: Critical Rest of plan per hospitalist and other consultants. A total of 35 minutes of critical care time was spent reviewing the patient record, examining the patient, making a diagnostic and therapeutic plan, discussing this plan with the medical personnel, following up on diagnostic studies and following the patient for clinical stability excluding any and all procedures. At least 50% of this time was spent in direct, [id number] contact. Thank you Dr. Hale for allowing me to participate in this patient's care. Further recommendations will depend on patient's clinical course. Please do not hesitate to contact me if you have any questions or concerns. This medical document was created using an electronic medical record system with [employer] dictation system. Although this document has been carefully reviewed, there may still be some phonetic and typographical errors. These areas are purely typographical due to imperfections of the software programs, and do not reflect any compromise in the patient's medical care. Plan discussed with: Other (JUAN LUIS Ayala) Critical Care Time(min): 35 ARTHUR WEBB MD May 11, 2024 20:48
--- NOTE | 2024-05-11 20:49 | DVHPN2 ---
Assessment/Plan Assessment/Plan ICU progress note Subjective 43-year-old female with hypertension, morbid obesity admitted for NSTEMI and flu a. improved with HFNC Objective Physical exam Alert, oriented x3 PERRLA on HFNC Morbidly obese Scattered rhonchi S1-S2 tachycardia Abdomen soft nontender Moving all four extremities No lower extremity edema Lab Flu a positive Leukocytosis Troponin elevation Hypokalemia EKG Sinus tach with PVCs Imaging Multiple nodular opacity in chest x-ray Assessment and plan Acute hypoxic respiratory failure Influenza a Superimposed with pneumonia, possible staph aureus Obesity Hypertension Hypokalemia Type 2 CO demand ischemia Admit to HEATHER If able put on high-flow nasal cannula Maintain oxygen saturation above 94% Tamiflu Cefepime and vancomycin MRSA swab Sputum culture Replete potassium restart home meds Pulmonary consult c/w HFNC Prednisone 40 mg daily Q.4 albuterol and ipratropium Lines PIV Maintain potassium of 4, phosphate of 3 and magnesium of 2 Diet NPO DVT prophylaxis Lovenox Code status full code Goals of care on limited Patient is okay with intubation 94 critical care time spent on this patient including evaluation, chart review, formulating plan and communication with team, excluding any procedures or point of care imaging Plan discussed with: Patient My Orders Orders - KENNEDY PRIEST MD Procedure Category Date Status Time Vancomycin Per PHA 05/11/24 In Process Pharmacy 09:00 Mrsa Screen AGA 05/11/24 Logged 08:58 Abg W/ Co-Ox RT 05/11/24 Logged 11:00 Vancomycin 1gm/200ml PHA 05/11/24 In Process [facility] 10:00 Vancomycin,Trough LAB 05/12/24 Verified 17:00 Complete Blood Count LAB 05/12/24 Verified 04:00 Creatinine LAB 05/12/24 Verified 04:00 Vancomycin Per MIGUELINA 05/11/24 In Process Pharmacy Protoc 09:26 Basic Metabolic Panel LAB 05/12/24 Verified 04:00 Magnesium LAB 05/12/24 Verified 04:00 Phosphorus LAB 05/12/24 Verified 04:00 Date of Service: May 11, 2024 Billing Provider: KENENDY PRIEST MD Common Visit Codes: [id number] INP/OBS CARE(HIGH), [id number] CARE 30-74 MIN, [id number] CARE-EACH +30MIN KENNEDY PRIEST MD May 11, 2024 20:49
[2024-05-11 22:39] VITALS: BP 121/83; PULSE 94; RESP 26; O2SAT 80
[2024-05-12] VITALS (7 sets, daily range): BP systolic 130–140; BP diastolic 86–97; PULSE 94–107; RESP 24–31; O2SAT 90–96
[2024-05-12] MEDS: ONDANSETRON HCL 4 MG/2 ML VIAL IV PRN (03:38)
[2024-05-12 04:56] LABS: Basophils # (auto) 0 10 ^3/uL (0-0.2); Basophils % (auto) 0.1 % (0.0-2.0); Eosinophils # (auto) 0 10 ^3/uL (0-0.8); Eosinophils % (auto) 0.1 % (0.0-7.0); Hematocrit 32.6 % (36.0-46.0); Hemoglobin 10.7 g/dL (12.2-16.2); Lymphocytes # (auto) 1.7 10 ^3/uL (0.4-5.4); Lymphocytes % (auto) 11.2 % (10.0-50.0); Mean Corpuscular Hemoglobin 28.7 pg (28.0-32.0); Mean Corpuscular Hgb Conc. 32.9 g/dL (32.0-36.0); Mean Corpuscular Volume 87.1 fL (80.0-100.0); Monocytes # (auto) 0.9 10 ^3/uL (0-1.3); Monocytes % (auto) 6.1 % (0.0-12.0); Neutrophils # (auto) 12.5 10 ^3/uL (1.6-8.6); Neutrophils % (auto) 82.5 % (37.0-80.0); Nucleated Red Blood Cells % 0.1 %; Platelet Count (auto) 266 10^3/uL (140-450); Red Blood Cells 3.74 10^6/uL (4.0-5.20); White Blood Cell 15.2 10^3/uL (4.4-10.8)
[2024-05-12 05:04] LABS: Anion Gap 5 (5-15); Carbon Dioxide 30 mmol/L (20-31); Chloride 105 mmol/L (98-107); Potassium 3.7 mmol/L (3.5-5.1); Sodium 140 mmol/L (136-145)
[2024-05-12 05:05] LABS: Calcium 8.4 mg/dL (8.7-10.4)
[2024-05-12 05:10] LABS: BUN/Creatinine Ratio 17.2 (10.0-20.0); Blood Urea Nitrogen 10 mg/dL (9-23); Glucose 97 mg/dL (74-106)
[2024-05-12 05:11] LABS: Magnesium 2.3 mg/dL (1.6-2.6)
--- NOTE | 2024-05-12 10:56 | DVH ---
CHEST RADIOGRAPH Indication: interval Technique: Single frontal view of the chest was obtained COMPARISON: XY CHEST PORTABLE on DOS: 05/10/24 FINDINGS: Lines and Tubes: None Lungs: Unchanged multifocal airspace disease. Pleura: No effusion. No pneumothorax. Cardiomediastinal contours: Unremarkable Bones: Unremarkable IMPRESSION: Unchanged multifocal airspace disease.
[2024-05-12] MEDS: ONDANSETRON HCL 4 MG/2 ML VIAL ONE (14:04)
[2024-05-12] MEDS: KETOROLAC TROMETH 30 MG/ML 1ML VIAL IV ONE (15:29)
--- NOTE | 2024-05-12 20:50 | DVHPN2 ---
Assessment/Plan Assessment/Plan ICU progress note Subjective 43-year-old female with hypertension, morbid obesity admitted for NSTEMI and flu a. further breathing improvement, on vanc and cefepime. will titrate o2 tomorrow Objective Physical exam Alert, oriented x3 PERRLA on HFNC Morbidly obese Scattered rhonchi S1-S2 tachycardia Abdomen soft nontender Moving all four extremities No lower extremity edema Lab Flu a positive Leukocytosis Troponin elevation Hypokalemia EKG Sinus tach with PVCs Imaging Multiple nodular opacity in chest x-ray Assessment and plan Acute hypoxic respiratory failure Influenza a Superimposed with pneumonia, possible staph aureus Obesity Hypertension Hypokalemia Type 2 ID demand ischemia Admit to HEATHER If able put on high-flow nasal cannula Maintain oxygen saturation above 94% Tamiflu Cefepime and vancomycin MRSA swab Sputum culture Replete potassium restart home meds Pulmonary consult c/w HFNC Prednisone 40 mg daily Q.4 albuterol and ipratropium Lines PIV Maintain potassium of 4, phosphate of 3 and magnesium of 2 Diet NPO DVT prophylaxis Lovenox Code status full code Goals of care on limited Patient is okay with intubation 68 critical care time spent on this patient including evaluation, chart review, formulating plan and communication with team, excluding any procedures or point of care imaging Plan discussed with: Patient My Orders Orders - KENNEDY PRIEST MD Procedure Category Date Status Time Chest Portable XY 05/12/24 Resulted 10:18 Vancomycin PHA 05/13/24 In Process 1.25gm/250ml 02:00 Vancomycin Per MIGUELINA 05/14/24 In Process Pharmacy Protoc 10:00 Vancomycin,Trough LAB 05/14/24 Verified 09:00 Date of Service: May 12, 2024 Billing Provider: KENNEDY PRIEST MD Common Visit Codes: [id number] INP/OBS CARE(HIGH), [id number] CARE 30-74 MIN KENNEDY PRIEST MD May 12, 2024 20:50
[2024-05-12 21:24] LABS: Base Excess 0.5 mmol/L (-2.0-3.0)
[2024-05-12] MEDS: OSELTAMIVIR 75 MG CAP PO SCH (21:35)
--- NOTE | 2024-05-12 21:59 | DVHPN2 ---
Progress Note - Dictate Date Seen: May 12, 2024 Medical Necessity Reason Pt with a Central, PICC or Fol: No Subjective Patient seen and examined at bedside. Remains on supplemental oxygen Overnight events reviewed. vital signs Vital Sign Date Time Temp Pulse Resp B/P (MAP) Pulse Ox O2 Delivery O2 Flow Rate FiO2 05/12/24 21:44 91 24 117/74 05/12/24 21:00 92 05/12/24 19:21 Hi-Flow NC 10 40 40 05/12/24 19:21 98.3 98.3 Total Intake and Output 05/12/24 05/12/24 05/12/24 01:30 09:30 17:30 Intake Total 587.5 ml Output Total 400 ml 900 ml Balance -400 ml -312.5 ml medications Current Medications Medications Dose Ordered Sig/Julio Route Start Time Stop Time Status Last Admin Dose Admin Albuterol 2.5 mg Q4HWA PRN NEB 05/10/24 08:45 05/12/24 20:45 2.5 MG Ipratropium [place] 0.5 mg Q4HWA PRN NEB 05/10/24 08:45 05/12/24 20:45 0.5 MG Prednisone 40 mg DAILY PO 05/10/24 10:00 05/12/24 09:25 40 MG Cefepime HCl 50 ml @ 12.5 mls/hr Q8HR IV 05/10/24 14:00 05/12/24 21:35 12.5 MLS/HR Aspirin 81 mg DAILY PO 05/10/24 10:00 05/12/24 09:25 81 MG Atorvastatin Calcium 80 mg HS PO 05/10/24 22:00 05/12/24 21:36 80 MG Metoprolol Tartrate 25 mg Q12HR PO 05/10/24 10:00 05/12/24 21:36 25 MG Acetaminophen 650 mg Q6HP PRN PO 05/10/24 08:45 05/11/24 15:54 650 MG Enoxaparin Sodium 100 mg Q12HR SC 05/10/24 10:00 UNV Lisinopril 10 mg DAILY PO 05/10/24 10:00 05/12/24 09:24 10 MG Diagnostic Test (Pha) 1 strip IQ4HR 05/10/24 12:00 05/12/24 19:59 1 STRIP Insulin Human Regular IQ4HR SC 05/10/24 12:00 05/12/24 16:42 2 UNITS Dextrose 50 ml UD PRN IV 05/10/24 09:00 Morphine Sulfate 2 mg Q4HPRN PRN IV 05/10/24 22:15 05/12/24 21:44 2 MG Vancomycin HCl 0 ml @ 0 mls/hr UD IV 05/11/24 09:00 Ondansetron HCl 4 mg Q6HPRN PRN IV 05/12/24 03:30 05/12/24 03:38 4 MG Oseltamivir Phosphate 75 mg BID PO 05/12/24 22:00 05/15/24 21:59 05/12/24 21:35 75 MG Vancomycin HCl 250 ml @ 200 mls/hr Q8H IV 05/13/24 02:00 objective Gen.: Patient lying in bed in no apparent distress. On supplemental oxygen. Head: Normocephalic, atraumatic. Eyes: EOMI/PERRLA. Ears: Normal hearing. Normal anatomy. Neck/trachea: Trachea midline, supple. Nose: Normal external anatomy. Mouth: Moist mucous membranes. Chest: Decreased air entry bilaterally. No wheezing or rhonchi. Cardiovascular: Positive S1, positive S2. Regular rate and rhythm. Abdomen: Positive bowel sounds in all 4 quadrants. Soft, non-tender, non- distended. : Deferred. Rectal: Deferred. Skin: Warm, dry. Intact. Extremities: 2+ radial pulses bilaterally. No lower extremity edema. Neuro: Awake, alert, oriented x3. No gross motor or sensory deficits. Cranial nerves II through XII intact. Gait not assessed. laboratory and microbiology Laboratory Tests 05/12/24 04:20 Test 05/12/24 04:20 Range/Units Serum Glucose 97 74-106 mg/dL Assessment/Plan Impression: Acute hypoxic respiratory failure Multifocal pneumonia Influenza type a Nicotine dependence Morbid obesity with a BMI of 44 Anxiety Hypokalemia Events: Remains on high flow O2 at flow rate 10 LPM, FiO2 40% Taper O2 as tolerated Continue Tamiflu. Continue bronchodilators Continue antibiotics Continue steroids - PO prednisone. Accu-Cheks for glycemic monitoring Pain control Avoid oversedation Monitor respiratory status closely d/t high O2 requirements. Labs and imaging reviewed. Rest of plan as noted below. Plan: Supplemental oxygen . Keep O2 saturation above 92%. Continue antibiotics Send sputum for Gram stain and culture if able to produce. Tamiflu course for influenza type A Chest x-ray imaging report reviewed. Multifocal pneumonia. Continue antibiotics. Send sputum for Gram stain and culture if able to produce. Bronchodilators Anxiolytic as needed Monitor electrolytes. Supplement potassium. Smoking cessation discussed for greater than 10 minutes. Accu-Cheks, insulin sliding scale Prognosis: Guarded given multiple comorbidities. Condition: Critical Rest of plan per hospitalist and other consultants. A total of 35 minutes of critical care time was spent reviewing the patient record, examining the patient, making a diagnostic and therapeutic plan, discussing this plan with the medical personnel, following up on diagnostic studies and following the patient for clinical stability excluding any and all procedures. At least 50% of this time was spent in direct, [id number] contact. Thank you Dr. Hale for allowing me to participate in this patient's care. Further recommendations will depend on patient's clinical course. Please do not hesitate to contact me if you have any questions or concerns. This medical document was created using an electronic medical record system with [employer] dictation system. Although this document has been carefully reviewed, there may still be some phonetic and typographical errors. These areas are purely typographical due to imperfections of the software programs, and do not reflect any compromise in the patient's medical care. Plan discussed with: Other (JUAN LUIS Bocanegra) Critical Care Time(min): 35 ARTHUR WEBB MD May 12, 2024 21:59
[2024-05-13] VITALS (11 sets, daily range): BP systolic 118–136; BP diastolic 79–87; PULSE 70–103; RESP 18–35; TEMP 97.9–99.3; O2SAT 93–100
[2024-05-13] MEDS: VANCOMYCIN 1.25GM/250ML 250 ML IV SCH (01:59)
[2024-05-13 06:18] LABS: Basophils # (auto) 0 10 ^3/uL (0-0.2); Eosinophils # (auto) 0.1 10 ^3/uL (0-0.8); Eosinophils % (auto) 0.5 % (0.0-7.0); Hemoglobin 10.4 g/dL (12.2-16.2); Lymphocytes # (auto) 1.9 10 ^3/uL (0.4-5.4); Lymphocytes % (auto) 12.3 % (10.0-50.0); Mean Corpuscular Hemoglobin 28.3 pg (28.0-32.0); Mean Corpuscular Hgb Conc. 32.5 g/dL (32.0-36.0); Mean Corpuscular Volume 87.3 fL (80.0-100.0); Monocytes % (auto) 6.2 % (0.0-12.0); Neutrophils # (auto) 12.5 10 ^3/uL (1.6-8.6); Nucleated Red Blood Cells % 0.1 %; Platelet Count (auto) 265 10^3/uL (140-450); Red Blood Cells 3.66 10^6/uL (4.0-5.20); Red Cell Distribution Width 14.9 % (11.8-14.3); White Blood Cell 15.4 10^3/uL (4.4-10.8)
[2024-05-13 06:21] LABS: Anion Gap 7 (5-15); Carbon Dioxide 30 mmol/L (20-31); Chloride 103 mmol/L (98-107); Potassium 3.6 mmol/L (3.5-5.1); Sodium 140 mmol/L (136-145)
[2024-05-13 06:23] LABS: Calcium 8.6 mg/dL (8.7-10.4)
[2024-05-13 06:27] LABS: Blood Urea Nitrogen 15 mg/dL (9-23); Glucose 90 mg/dL (74-106)
[2024-05-13 06:28] LABS: Magnesium 2.1 mg/dL (1.6-2.6)
--- NOTE | 2024-05-13 17:57 | DVHPN2 ---
Assessment/Plan Assessment/Plan ICU progress note Subjective 43-year-old female with hypertension, morbid obesity admitted for NSTEMI and flu a. patient seen by me today during rounds on oximizer, breathing improved Objective Physical exam Alert, oriented x3 PERRLA on oximizer Morbidly obese Scattered rhonchi S1-S2 tachycardia Abdomen soft nontender Moving all four extremities No lower extremity edema Lab Flu a positive Leukocytosis Troponin elevation Hypokalemia EKG Sinus tach with PVCs Imaging Multiple nodular opacity in chest x-ray Assessment and plan Acute hypoxic respiratory failure Influenza a Superimposed with pneumonia, possible staph aureus Obesity Hypertension Hypokalemia Type 2 CO demand ischemia Admit to HEATHER titrate down o2 Maintain oxygen saturation above 94% Tamiflu Cefepime and vancomycin MRSA swab Sputum culture Replete potassium restart home meds Pulmonary consult c/w HFNC Prednisone 40 mg daily Q.4 albuterol and ipratropium downgrade to telemetry Lines PIV Maintain potassium of 4, phosphate of 3 and magnesium of 2 Diet NPO DVT prophylaxis Lovenox Code status full code Goals of care on limited Patient is okay with intubation 63 critical care time spent on this patient including evaluation, chart review, formulating plan and communication with team, excluding any procedures or point of care imaging Plan discussed with: Patient My Orders Orders - KENNEDY PRIEST MD Procedure Category Date Status Time Vancomycin PHA 05/13/24 In Process 1.25gm/250ml 02:00 Vancomycin Per MIGUELINA 05/14/24 In Process Pharmacy Protoc 10:00 Vancomycin,Trough LAB 05/14/24 Verified 09:00 Abg W/ Co-Ox RT 05/13/24 Logged 04:00 Transfer Orders XFER 05/13/24 Transmitted 12:33 Date of Service: May 13, 2024 Billing Provider: KENNEDY PRIEST MD Common Visit Codes: [id number] INP/OBS CARE(HIGH), [id number] CARE 30-74 MIN KENNEDY PRIEST MD May 13, 2024 17:57
--- NOTE | 2024-05-13 19:50 | DVHPN2 ---
Progress Note - Dictate Date Seen: May 13, 2024 Medical Necessity Reason Pt with a Central, PICC or Fol: Yes The following are medically ne: Lara Catheter Reason for lara catheter: Strict I&O Subjective Patient seen and examined at bedside. Remains on supplemental oxygen Overnight events reviewed. vital signs Vital Sign Date Time Temp Pulse Resp B/P (MAP) Pulse Ox O2 Delivery O2 Flow Rate FiO2 05/13/24 19:00 Oxymizer 10 N/A 05/13/24 19:00 97.9 70 19 136/82 (100) 99 97.9 Total Intake and Output 05/12/24 05/12/24 05/13/24 15:00 23:00 07:00 Intake Total 550 ml 50.0 ml 300 ml Output Total 1300 ml 580 ml Balance -750 ml 50.0 ml -280 ml medications Current Medications Medications Dose Ordered Sig/Julio Route Start Time Stop Time Status Last Admin Dose Admin Albuterol 2.5 mg Q4HWA PRN NEB 05/10/24 08:45 05/13/24 03:08 2.5 MG Ipratropium [place] 0.5 mg Q4HWA PRN NEB 05/10/24 08:45 05/12/24 20:45 0.5 MG Prednisone 40 mg DAILY PO 05/10/24 10:00 05/13/24 10:25 40 MG Cefepime HCl 50 ml @ 12.5 mls/hr Q8HR IV 05/10/24 14:00 05/13/24 14:24 12.5 MLS/HR Aspirin 81 mg DAILY PO 05/10/24 10:00 05/13/24 10:27 81 MG Atorvastatin Calcium 80 mg HS PO 05/10/24 22:00 05/12/24 21:36 80 MG Metoprolol Tartrate 25 mg Q12HR PO 05/10/24 10:00 05/12/24 21:36 25 MG Acetaminophen 650 mg Q6HP PRN PO 05/10/24 08:45 05/11/24 15:54 650 MG Enoxaparin Sodium 100 mg Q12HR SC 05/10/24 10:00 UNV Lisinopril 10 mg DAILY PO 05/10/24 10:00 05/13/24 10:22 10 MG Diagnostic Test (Pha) 1 strip IQ4HR 05/10/24 12:00 05/13/24 16:04 1 STRIP Insulin Human Regular IQ4HR SC 05/10/24 12:00 05/13/24 16:08 3 UNITS Dextrose 50 ml UD PRN IV 05/10/24 09:00 Morphine Sulfate 2 mg Q4HPRN PRN IV 05/10/24 22:15 05/12/24 21:44 2 MG Vancomycin HCl 0 ml @ 0 mls/hr UD IV 05/11/24 09:00 Ondansetron HCl 4 mg Q6HPRN PRN IV 05/12/24 03:30 05/12/24 03:38 4 MG Oseltamivir Phosphate 75 mg BID PO 05/12/24 22:00 05/15/24 21:59 05/13/24 10:26 75 MG Vancomycin HCl 250 ml @ 200 mls/hr Q8H IV 05/13/24 02:00 05/13/24 10:23 200 MLS/HR objective Gen.: Patient lying in bed in no apparent distress. On supplemental oxygen. Head: Normocephalic, atraumatic. Eyes: EOMI/PERRLA. Ears: Normal hearing. Normal anatomy. Neck/trachea: Trachea midline, supple. Nose: Normal external anatomy. Mouth: Moist mucous membranes. Chest: Decreased air entry bilaterally. No wheezing or rhonchi. Cardiovascular: Positive S1, positive S2. Regular rate and rhythm. Abdomen: Positive bowel sounds in all 4 quadrants. Soft, non-tender, non- distended. : Deferred. Rectal: Deferred. Skin: Warm, dry. Intact. Extremities: 2+ radial pulses bilaterally. No lower extremity edema. Neuro: Awake, alert, oriented x3. No gross motor or sensory deficits. Cranial nerves II through XII intact. Gait not assessed. laboratory and microbiology Laboratory Tests 05/13/24 05:44 Test 05/13/24 05:44 Range/Units Serum Glucose 90 74-106 mg/dL Assessment/Plan Impression: Acute hypoxic respiratory failure Multifocal pneumonia Influenza type a Nicotine dependence Morbid obesity with a BMI of 44 Anxiety Hypokalemia Events: Remains on supplemental O2 Transitioned to simple mask at 8 LPM. Taper O2 as tolerated Continue Tamiflu. Continue bronchodilators Continue antibiotics Continue steroids - PO prednisone. IS. WBC trending down. Blood cultures show no growth x72 hours. Sputum cultures show normal oropharyngeal penny. Accu-Cheks, ISS. Pain control Avoid oversedation Monitor respiratory status closely d/t high O2 requirements. Labs and imaging reviewed. Rest of plan as noted below. Plan: Supplemental oxygen . Keep O2 saturation above 92%. Continue antibiotics Send sputum for Gram stain and culture if able to produce. Tamiflu course for influenza type A Chest x-ray imaging report reviewed. Multifocal pneumonia. Continue antibiotics. Send sputum for Gram stain and culture if able to produce. Bronchodilators Anxiolytic as needed Monitor electrolytes. Supplement potassium. Smoking cessation discussed for greater than 10 minutes. Accu-Cheks, insulin sliding scale Prognosis: Guarded given multiple comorbidities. Rest of plan per hospitalist and other consultants. Thank you Dr. Hale for allowing me to participate in this patient's care. Further recommendations will depend on patient's clinical course. Please do not hesitate to contact me if you have any questions or concerns. This medical document was created using an electronic medical record system with [employer] dictation system. Although this document has been carefully reviewed, there may still be some phonetic and typographical errors. These areas are purely typographical due to imperfections of the software programs, and do not reflect any compromise in the patient's medical care. Plan discussed with: Other (RN) ARTHUR WEBB MD May 13, 2024 19:50
[2024-05-14] VITALS (13 sets, daily range): BP systolic 111–149; BP diastolic 72–90; PULSE 18–99; RESP 16–19; TEMP 97.9–99.2; O2SAT 91–100
[2024-05-14 06:04] LABS: Basophils # (auto) 0 10 ^3/uL (0-0.2); Basophils % (auto) 0.1 % (0.0-2.0); Eosinophils # (auto) 0.1 10 ^3/uL (0-0.8); Eosinophils % (auto) 0.7 % (0.0-7.0); Hematocrit 34.9 % (36.0-46.0); Hemoglobin 11.1 g/dL (12.2-16.2); Lymphocytes # (auto) 2.6 10 ^3/uL (0.4-5.4); Lymphocytes % (auto) 15.2 % (10.0-50.0); Mean Corpuscular Hemoglobin 27.9 pg (28.0-32.0); Mean Corpuscular Hgb Conc. 31.8 g/dL (32.0-36.0); Mean Corpuscular Volume 87.9 fL (80.0-100.0); Monocytes # (auto) 1.1 10 ^3/uL (0-1.3); Monocytes % (auto) 6.3 % (0.0-12.0); Neutrophils # (auto) 13.1 10 ^3/uL (1.6-8.6); Neutrophils % (auto) 77.7 % (37.0-80.0); Platelet Count (auto) 293 10^3/uL (140-450); Red Blood Cells 3.98 10^6/uL (4.0-5.20); White Blood Cell 16.8 10^3/uL (4.4-10.8)
[2024-05-14 06:18] LABS: Chloride 103 mmol/L (98-107); Potassium 3.5 mmol/L (3.5-5.1); Sodium 140 mmol/L (136-145)
[2024-05-14 06:19] LABS: Anion Gap 5 (5-15); Calcium 8.9 mg/dL (8.7-10.4); Carbon Dioxide 32 mmol/L (20-31)
[2024-05-14 06:24] LABS: BUN/Creatinine Ratio 17.9 (10.0-20.0); Blood Urea Nitrogen 10 mg/dL (9-23); Glucose 87 mg/dL (74-106)
[2024-05-14] MEDS: InsuLIN REG 1unit/0.01ml Soln (100units/ml) SC SCH (11:30)
--- NOTE | 2024-05-14 20:07 | DVHPN2 ---
Assessment/Plan Assessment/Plan ICU progress note Subjective 43-year-old female with hypertension, morbid obesity admitted for NSTEMI and flu a. patient seen by me today during rounds on simple mask, will switch to NC today. dc lara Objective Physical exam Alert, oriented x3 PERRLA on oximizer Morbidly obese Scattered rhonchi S1-S2 tachycardia Abdomen soft nontender Moving all four extremities No lower extremity edema Lab Flu a positive Leukocytosis Troponin elevation Hypokalemia EKG Sinus tach with PVCs Imaging Multiple nodular opacity in chest x-ray Assessment and plan Acute hypoxic respiratory failure Influenza a Superimposed with pneumonia, possible staph aureus Obesity Hypertension Hypokalemia Type 2 MA demand ischemia titrate down o2 Maintain oxygen saturation above 94% Tamiflu Cefepime and vancomycin MRSA swab Sputum culture Replete potassium restart home meds Pulmonary consult c/w HFNC Prednisone 40 mg daily Q.4 albuterol and ipratropium dc lara Lines PIV Maintain potassium of 4, phosphate of 3 and magnesium of 2 Diet reg DVT prophylaxis Lovenox Code status full code Goals of care on limited Patient is okay with intubation 63 critical care time spent on this patient including evaluation, chart review, formulating plan and communication with team, excluding any procedures or point of care imaging Plan discussed with: Patient My Orders Orders - KENNEDY PRIEST MD Procedure Category Date Status Time Insulin R (Human) PHA 05/14/24 In Process (Insulin R) 11:30 Complete Blood Count LAB 05/15/24 Verified 04:00 Creatinine LAB 05/15/24 Verified 04:00 Vancomycin,Trough LAB 05/16/24 Verified 09:00 Vancomycin Per MIGUELINA 05/14/24 In Process Pharmacy Protoc 16:12 Dietary NOTICE 05/14/24 Transmitted Recommendations 16:18 Discontinue Lara MIGUELINA 05/14/24 In Process Catheter 17:19 Date of Service: May 14, 2024 Billing Provider: KENNEDY PRIEST MD Common Visit Codes: [id number] INP/OBS CARE(HIGH) KENNEDY PRIEST MD May 14, 2024 20:07
--- NOTE | 2024-05-14 21:13 | DVHPN2 ---
Progress Note - Dictate Date Seen: May 14, 2024 Medical Necessity Reason Pt with a Central, PICC or Fol: Yes The following are medically ne: Lara Catheter Reason for lara catheter: Strict I&O Subjective Patient seen and examined at bedside. Remains on supplemental oxygen Overnight events reviewed. vital signs Vital Sign Date Time Temp Pulse Resp B/P (MAP) Pulse Ox O2 Delivery O2 Flow Rate FiO2 05/14/24 21:00 98.5 62 19 136/73 (94) 100 98.5 05/14/24 16:40 Oxymizer 10 N/A Total Intake and Output 05/13/24 05/13/24 05/14/24 15:00 23:00 07:00 Intake Total 300 ml 300 ml 750 ml Output Total 650 ml Balance 300 ml 300 ml 100 ml medications Current Medications Medications Dose Ordered Sig/Julio Route Start Time Stop Time Status Last Admin Dose Admin Albuterol 2.5 mg Q4HWA PRN NEB 05/10/24 08:45 05/13/24 20:16 2.5 MG Ipratropium [place] 0.5 mg Q4HWA PRN NEB 05/10/24 08:45 05/13/24 20:16 0.5 MG Prednisone 40 mg DAILY PO 05/10/24 10:00 05/14/24 11:32 40 MG Cefepime HCl 50 ml @ 12.5 mls/hr Q8HR IV 05/10/24 14:00 05/14/24 14:21 12.5 MLS/HR Aspirin 81 mg DAILY PO 05/10/24 10:00 05/14/24 11:33 81 MG Atorvastatin Calcium 80 mg HS PO 05/10/24 22:00 05/13/24 22:34 80 MG Metoprolol Tartrate 25 mg Q12HR PO 05/10/24 10:00 05/14/24 11:32 25 MG Acetaminophen 650 mg Q6HP PRN PO 05/10/24 08:45 05/14/24 05:08 650 MG Enoxaparin Sodium 100 mg Q12HR SC 05/10/24 10:00 UNV Lisinopril 10 mg DAILY PO 05/10/24 10:00 05/14/24 11:32 10 MG Diagnostic Test (Pha) 1 strip IQ4HR 05/10/24 12:00 05/14/24 11:33 1 STRIP Dextrose 50 ml UD PRN IV 05/10/24 09:00 Morphine Sulfate 2 mg Q4HPRN PRN IV 05/10/24 22:15 05/13/24 22:48 2 MG Vancomycin HCl 0 ml @ 0 mls/hr UD IV 05/11/24 09:00 Ondansetron HCl 4 mg Q6HPRN PRN IV 05/12/24 03:30 05/14/24 15:14 4 MG Oseltamivir Phosphate 75 mg BID PO 05/12/24 22:00 05/15/24 21:59 05/14/24 11:31 75 MG Vancomycin HCl 250 ml @ 200 mls/hr Q8H IV 05/13/24 02:00 05/14/24 18:00 200 MLS/HR Insulin Human Regular ACHS SC 05/14/24 11:30 objective Gen.: Patient lying in bed in no apparent distress. On supplemental oxygen. Head: Normocephalic, atraumatic. Eyes: EOMI/PERRLA. Ears: Normal hearing. Normal anatomy. Neck/trachea: Trachea midline, supple. Nose: Normal external anatomy. Mouth: Moist mucous membranes. Chest: Decreased air entry bilaterally. No wheezing or rhonchi. Cardiovascular: Positive S1, positive S2. Regular rate and rhythm. Abdomen: Positive bowel sounds in all 4 quadrants. Soft, non-tender, non- distended. : Deferred. Rectal: Deferred. Skin: Warm, dry. Intact. Extremities: 2+ radial pulses bilaterally. No lower extremity edema. Neuro: Awake, alert, oriented x3. No gross motor or sensory deficits. Cranial nerves II through XII intact. Gait not assessed. laboratory and microbiology Laboratory Tests 05/14/24 05:13 Test 05/14/24 05:13 Range/Units Serum Glucose 87 74-106 mg/dL Assessment/Plan Impression: Acute hypoxic respiratory failure Multifocal pneumonia Influenza type a Nicotine dependence Morbid obesity with a BMI of 44 Anxiety Hypokalemia Events: Remains on supplemental O2 Simple mask at 8 LPM. Taper O2 as tolerated Increased O2 requirements. Continue Tamiflu. Continue bronchodilators Continue antibiotics Continue IV steroids IS. Monitor WBC - 16.8. Accu-Cheks, ISS. Pain control Avoid oversedation Monitor respiratory status closely d/t high O2 requirements. Labs and imaging reviewed. Rest of plan as noted below. Plan: Supplemental oxygen . Keep O2 saturation above 92%. Continue antibiotics Send sputum for Gram stain and culture if able to produce. Tamiflu course for influenza type A Chest x-ray imaging report reviewed. Multifocal pneumonia. Continue antibiotics. Send sputum for Gram stain and culture if able to produce. Bronchodilators Anxiolytic as needed Monitor electrolytes. Supplement potassium. Smoking cessation discussed for greater than 10 minutes. Accu-Cheks, insulin sliding scale Prognosis: Guarded given multiple comorbidities. Rest of plan per hospitalist and other consultants. Thank you Dr. Hale for allowing me to participate in this patient's care. Further recommendations will depend on patient's clinical course. Please do not hesitate to contact me if you have any questions or concerns. This medical document was created using an electronic medical record system with [employer] dictation system. Although this document has been carefully reviewed, there may still be some phonetic and typographical errors. These areas are purely typographical due to imperfections of the software programs, and do not reflect any compromise in the patient's medical care. Dietary Evaluation Review Comments: 1) Consider a CCHO 45g/Cardiac diet 2) Continue current plan of care Expected Outcomes/Goals: F/U in 3-5 days Plan discussed with: Patient, Other (JUAN LUIS Burnett) ARTHUR WEBB MD May 14, 2024 21:13
[2024-05-15] VITALS (16 sets, daily range): BP systolic 96–144; BP diastolic 43–96; PULSE 71–114; RESP 18–21; TEMP 98–98.7; O2SAT 91–99
[2024-05-15 06:20] LABS: Basophils # (auto) 0 10 ^3/uL (0-0.2); Basophils % (auto) 0.2 % (0.0-2.0); Eosinophils # (auto) 0.2 10 ^3/uL (0-0.8); Eosinophils % (auto) 1.2 % (0.0-7.0); Lymphocytes # (auto) 2.3 10 ^3/uL (0.4-5.4); Lymphocytes % (auto) 12.9 % (10.0-50.0); Mean Corpuscular Hemoglobin 28.5 pg (28.0-32.0); Mean Corpuscular Hgb Conc. 32.5 g/dL (32.0-36.0); Mean Corpuscular Volume 87.7 fL (80.0-100.0); Monocytes # (auto) 1.2 10 ^3/uL (0-1.3); Monocytes % (auto) 6.7 % (0.0-12.0); Neutrophils # (auto) 14.1 10 ^3/uL (1.6-8.6); Nucleated Red Blood Cells % 0.1 %; Platelet Count (auto) 315 10^3/uL (140-450); Red Blood Cells 3.87 10^6/uL (4.0-5.20); White Blood Cell 17.8 10^3/uL (4.4-10.8)
[2024-05-15] MEDS ORDERED: ALBUTEROL SULF 2.5 MG/0.5ML(0.5%) NEB SOLN NEB PRN (15:30)
--- NOTE | 2024-05-15 16:16 | DVH ---
CHEST RADIOGRAPH Indication: re-eval pneumonia Technique: Single frontal view of the chest was obtained Comparison: XY CHEST PORTABLE on DOS: 05/12/24, XY CHEST PORTABLE on DOS: 05/10/24 FINDINGS: Lines and Tubes: None Lungs: Unimproved bilateral scattered airspace disease Pleura: No effusion. No pneumothorax. Cardiomediastinal contours: Unremarkable Bones: No acute osseous abnormality. IMPRESSION: 1. Unimproved bilateral scattered airspace disease.
[2024-05-15] MEDS: ALBUTEROL SULF 2.5 MG/0.5ML(0.5%) NEB SOLN NEB SCH (18:19)
[2024-05-15] MEDS: IPRATROPIUM BROM 0.5 MG/2.5ML INH SOL NEB SCH (18:19)
[2024-05-15] MEDS: guaiFENesin-CODEINE Liq 5 ML UD PO PRN (18:37)
--- NOTE | 2024-05-15 18:54 | DVHPN2 ---
Progress Note - Dictate Date Seen: May 15, 2024 Medical Necessity Reason Pt with a Central, PICC or Fol: Yes The following are medically ne: Lara Catheter Reason for lara catheter: Strict I&O Subjective Patient seen and examined at bedside. Remains on supplemental oxygen Overnight events reviewed. vital signs Vital Sign Date Time Temp Pulse Resp B/P (MAP) Pulse Ox O2 Delivery O2 Flow Rate FiO2 05/15/24 18:27 96 18 96 05/15/24 18:19 Simple Mask* 9 90 05/15/24 17:00 98.0 144/96 (112) 98.0 Total Intake and Output 05/14/24 05/14/24 05/15/24 15:00 23:00 07:00 Intake Total 50 ml 900 ml 1100 ml Balance 50 ml 900 ml 1100 ml medications Current Medications Medications Dose Ordered Sig/Julio Route Start Time Stop Time Status Last Admin Dose Admin Prednisone 40 mg DAILY PO 05/10/24 10:00 05/15/24 10:55 40 MG Cefepime HCl 50 ml @ 12.5 mls/hr Q8HR IV 05/10/24 14:00 05/15/24 14:35 12.5 MLS/HR Aspirin 81 mg DAILY PO 05/10/24 10:00 05/15/24 10:55 81 MG Atorvastatin Calcium 80 mg HS PO 05/10/24 22:00 05/14/24 21:44 80 MG Metoprolol Tartrate 25 mg Q12HR PO 05/10/24 10:00 05/15/24 11:00 25 MG Acetaminophen 650 mg Q6HP PRN PO 05/10/24 08:45 05/15/24 05:11 650 MG Enoxaparin Sodium 100 mg Q12HR SC 05/10/24 10:00 UNV Lisinopril 10 mg DAILY PO 05/10/24 10:00 05/15/24 11:01 10 MG Morphine Sulfate 2 mg Q4HPRN PRN IV 05/10/24 22:15 05/14/24 22:00 2 MG Vancomycin HCl 0 ml @ 0 mls/hr UD IV 05/11/24 09:00 Ondansetron HCl 4 mg Q6HPRN PRN IV 05/12/24 03:30 05/14/24 15:14 4 MG Oseltamivir Phosphate 75 mg BID PO 05/12/24 22:00 05/15/24 21:59 05/15/24 10:55 75 MG Vancomycin HCl 250 ml @ 200 mls/hr Q8H IV 05/13/24 02:00 05/15/24 18:27 200 MLS/HR Albuterol 2.5 mg Q4HWA NEB 05/15/24 15:30 05/15/24 18:19 2.5 MG Ipratropium [place] 0.5 mg Q4HWA NEB 05/15/24 15:30 05/15/24 18:19 0.5 MG Albuterol 2.5 mg Q2HPRN PRN NEB 05/15/24 15:30 Guaifenesin/ Codeine Phosphate 10 ml Q4HPRN PRN PO 05/15/24 15:30 05/15/24 18:37 10 ML objective Gen.: Patient lying in bed in no apparent distress. On supplemental oxygen. Head: Normocephalic, atraumatic. Eyes: EOMI/PERRLA. Ears: Normal hearing. Normal anatomy. Neck/trachea: Trachea midline, supple. Nose: Normal external anatomy. Mouth: Moist mucous membranes. Chest: Decreased air entry bilaterally. No wheezing or rhonchi. Cardiovascular: Positive S1, positive S2. Regular rate and rhythm. Abdomen: Positive bowel sounds in all 4 quadrants. Soft, non-tender, non- distended. : Deferred. Rectal: Deferred. Skin: Warm, dry. Intact. Extremities: 2+ radial pulses bilaterally. No lower extremity edema. Neuro: Awake, alert, oriented x3. No gross motor or sensory deficits. Cranial nerves II through XII intact. Gait not assessed. laboratory and microbiology Laboratory Tests 05/15/24 05:14 05/14/24 05:13 Test 05/14/24 05:13 Range/Units Serum Glucose 87 74-106 mg/dL Assessment/Plan Impression: Acute hypoxic respiratory failure Multifocal pneumonia Influenza type a Nicotine dependence Morbid obesity with a BMI of 44 Anxiety Hypokalemia Events: Remains on supplemental O2 Simple mask at 10 LPM. Taper O2 as tolerated Increased O2 requirements. Obtain CXR in the AM for interval changes Continue Tamiflu. Continue bronchodilators q.4 hours Continue antibiotics Antitussive for cough. IS. WBC trending up - 17.8. Continue to monitor. Accu-Cheks for glycemic monitoring. Currently off insulin - glucose normal. Pain control Avoid oversedation Monitor respiratory status closely d/t high O2 requirements. Labs and imaging reviewed. Rest of plan as noted below. Plan: Supplemental oxygen . Keep O2 saturation above 92%. Continue antibiotics Send sputum for Gram stain and culture if able to produce. Tamiflu course for influenza type A Chest x-ray imaging report reviewed. Multifocal pneumonia. Continue antibiotics. Send sputum for Gram stain and culture if able to produce. Bronchodilators Anxiolytic as needed Monitor electrolytes. Supplement potassium. Smoking cessation discussed for greater than 10 minutes. Accu-Cheks, insulin sliding scale. Prognosis: Guarded given multiple comorbidities. Rest of plan per hospitalist and other consultants. Thank you Dr. Hale for allowing me to participate in this patient's care. Further recommendations will depend on patient's clinical course. Please do not hesitate to contact me if you have any questions or concerns. This medical document was created using an electronic medical record system with [employer] dictation system. Although this document has been carefully reviewed, there may still be some phonetic and typographical errors. These areas are purely typographical due to imperfections of the software programs, and do not reflect any compromise in the patient's medical care. Dietary Evaluation Review Comments: 1) Consider a CCHO 45g/Cardiac diet 2) Continue current plan of care Expected Outcomes/Goals: F/U in 3-5 days Plan discussed with: Patient, Other (JUAN LUIS Tobias) ARTHUR WEBB MD May 15, 2024 18:54
--- NOTE | 2024-05-15 22:07 | DVHPN2 ---
Assessment/Plan Assessment/Plan ICU progress note Subjective 43-year-old female with hypertension, morbid obesity admitted for NSTEMI and flu a. patient seen by me today during rounds uncomfortable with NC, back to simple mask, repeat xray with no significant interval changes, slightly tachycardic with elevated bicarb, will give ivf Objective Physical exam Alert, oriented x3 PERRLA on oximizer Morbidly obese Scattered rhonchi S1-S2 tachycardia Abdomen soft nontender Moving all four extremities No lower extremity edema Lab Flu a positive Leukocytosis Troponin elevation Hypokalemia EKG Sinus tach with PVCs Imaging Multiple nodular opacity in chest x-ray Assessment and plan Acute hypoxic respiratory failure Influenza a Superimposed with pneumonia, possible staph aureus Obesity Hypertension Hypokalemia Type 2 ID demand ischemia titrate down o2 Maintain oxygen saturation above 94% Tamiflu Cefepime day 5 and vancomycin day 3 MRSA swab neg Sputum culture NGTD Replete potassium restart home meds Pulmonary consult appreciated c/w HFNC Prednisone 40 mg daily Q.4 albuterol and ipratropium dc lara ivf Lines PIV Maintain potassium of 4, phosphate of 3 and magnesium of 2 Diet reg DVT prophylaxis Lovenox Code status full code Goals of care on limited Patient is okay with intubation Plan discussed with: Patient My Orders Orders - KENNEDY PRIEST MD Procedure Category Date Status Time NS PHA 05/15/24 Transmitted 22:00 Complete Blood Count LAB 05/16/24 Verified 04:00 Comprehensive LAB 05/16/24 Verified Metabolic Panel 04:00 Date of Service: May 15, 2024 Billing Provider: KENNEDY PRIEST MD Common Visit Codes: [id number] INP/OBS CARE(HIGH) KENNEDY PRIEST MD May 15, 2024 22:07
[2024-05-15] MEDS: SODIUM CHLORIDE 0.9% 1,000 ML IV ONE (23:33)
[2024-05-16] VITALS (19 sets, daily range): BP systolic 133–172; BP diastolic 76–99; PULSE 81–131; RESP 18–24; TEMP 97.6–99.8; O2SAT 86–98
[2024-05-16 08:44] LABS: Basophils # (auto) 0 10 ^3/uL (0-0.2); Basophils % (auto) 0.2 % (0.0-2.0); Eosinophils # (auto) 0.2 10 ^3/uL (0-0.8); Eosinophils % (auto) 1.3 % (0.0-7.0); Hematocrit 32.9 % (36.0-46.0); Hemoglobin 10.4 g/dL (12.2-16.2); Mean Corpuscular Hemoglobin 27.7 pg (28.0-32.0); Mean Corpuscular Hgb Conc. 31.6 g/dL (32.0-36.0); Mean Corpuscular Volume 87.6 fL (80.0-100.0); Monocytes # (auto) 1.3 10 ^3/uL (0-1.3); Neutrophils # (auto) 14.9 10 ^3/uL (1.6-8.6); Neutrophils % (auto) 80.5 % (37.0-80.0); Platelet Count (auto) 361 10^3/uL (140-450); Red Blood Cells 3.76 10^6/uL (4.0-5.20); Red Cell Distribution Width 15.2 % (11.8-14.3); White Blood Cell 18.5 10^3/uL (4.4-10.8)
[2024-05-16 08:56] LABS: Alanine Aminotransferase 21 U/L (7-40); Albumin 3.3 g/dL (3.2-4.8); Alkaline Phosphatase 94 U/L (46-116); Anion Gap 7 (5-15); Aspartate Aminotransferase 36 U/L (13-40); BUN/Creatinine Ratio 16.4 (10.0-20.0); Bilirubin, Total 0.8 mg/dL (0.2-1.0); Blood Urea Nitrogen 9 mg/dL (9-23); Calcium 8.8 mg/dL (8.7-10.4); Carbon Dioxide 29 mmol/L (20-31); Chloride 103 mmol/L (98-107); Glucose 128 mg/dL (74-106); Sodium 139 mmol/L (136-145); Total Protein 7.1 g/dL (5.7-8.2)
--- NOTE | 2024-05-16 10:20 | DVH ---
Procedure: CT CHEST WITHOUT CONTRAST Reason for study/Clinical History: 43 years old, Female; persistent hypoxia. Comparison Study: None available at time of dictation. Exam Date: 05/16/2024 08:46 AM TECHNIQUE: Multidetector CT of the chest was performed from the lung apices to the upper abdomen with out the use of intravenous contract. Axial, coronal and sagittal multiplanar reformats were performed . Radiation dose Information: CT Dose: CTDI volume is 25.75 mGy. Dose-length product is 853.28 mGy*cm The dose indicators for CT are the volume computed Tomography (CT) dose Index (CTDIvol) and the dose Length product (DLP), and are measured in units of mGy and mGy-cm, respectively. These indicators are not patient dose, but values generated from the CT scanner acquisition factors. The report includes radiation exposure data for exposures received during this examination. FINDINGS: Lower neck: Normal thyroid. Lungs: Diffuse ground-glass opacity and septal thickening throughout both lungs. Heart/Vascular Structures: Normal heart size. No pericardial effusion. Lymph Nodes: Mediastinal and bilateral hilar lymphadenopathy. Pleura: No pleural effusion or significant pneumothorax. Musculoskeletal: No acute osseous abnormality. Soft tissues: Normal. Upper abdomen: Limited portions of the upper abdomen are unremarkable. IMPRESSION: 1. Diffuse ground-glass opacity and septal thickening in both lungs. Findings are likely infectious / inflammatory. Differential considerations include hypersensitivity pneumonitis and atypical infectio ns. Clinical correlation and continued follow-up is recommended. Radiation optimization: All CT scans at this facility use at least one of these dose optimization jose hniques: Automated exposure control mA and/or kV adjustment per patient size (includes targeted exams where dose is matched to clinical indication) or iterative reconstruction. HS:Y
[2024-05-16] MEDS: POTASSIUM EFFERVESENT TAB 25 MEQ PO ONE (12:58)
[2024-05-16] MEDS: amLODIPine BESYLATE 5 MG TAB PO ONE (18:05)
[2024-05-16] MEDS: FUROSEMIDE 20 MG/2 ML VIAL IV ONE (18:15)
[2024-05-16] MEDS: HYDROCORTISONE SOD SUCC 100 MG/2ML INJ VIAL IV SCH (18:17)
[2024-05-16] MEDS: ENOXAPARIN SOD 40 MG/0.4 ML SYRINGE SC ONE (18:45)
--- NOTE | 2024-05-16 18:45 | DVHPN2 ---
Assessment/Plan Assessment/Plan Progress note Subjective 43-year-old female with hypertension, morbid obesity admitted for NSTEMI and flu a. patient seen by me today during rounds tachycardia and hypoxia persists, CT done showing GGO. increase steroid dose Objective Physical exam Alert, oriented x3 PERRLA on oximizer Morbidly obese Scattered rhonchi S1-S2 tachycardia Abdomen soft nontender Moving all four extremities No lower extremity edema Lab Flu a positive Leukocytosis Troponin elevation Hypokalemia EKG Sinus tach with PVCs Imaging Multiple nodular opacity in chest x-ray CT chest with GGO Assessment and plan Acute hypoxic respiratory failure Influenza a Superimposed with pneumonia, possible staph aureus Obesity Hypertension Hypokalemia Type 2 [place] demand ischemia titrate down o2 Maintain oxygen saturation above 94% Tamiflu Cefepime day 5 and vancomycin day 3 MRSA swab neg Sputum culture NGTD Replete potassium restart home meds Pulmonary consult appreciated c/w HFNC dc prednisone, start hydrocortisone 50mg q6 Q.4 albuterol and ipratropium dc lara ivf Lines PIV Maintain potassium of 4, phosphate of 3 and magnesium of 2 Diet reg DVT prophylaxis Lovenox Code status full code Goals of care on limited Patient is okay with intubation Plan discussed with: Patient My Orders Orders - KENNEDY PRIEST MD Procedure Category Date Status Time Admit ADMIT 05/15/24 Transmitted 22:[address] 05/16/24 Resulted 08:27 Vancomycin,Trough LAB 05/18/24 Verified 17:00 Vancomycin Per MIGUELINA 05/18/24 In Process Pharmacy [facility] 17:00 Complete Blood Count LAB 05/18/24 Verified 04:00 Creatinine LAB 05/18/24 Verified 04:00 Hydrocortisone PHA 05/16/24 In Process Succinate Inj 18:00 Amlodipine Tablet PHA 05/17/24 In Process (Norvasc Tablet) 10:00 Date of Service: May 16, 2024 Billing Provider: KENNEDY PRIEST MD Common Visit Codes: [id number] INP/OBS CARE(HIGH) KENNEDY PRIEST MD May 16, 2024 18:45
--- NOTE | 2024-05-16 23:14 | DVHPN2 ---
Progress Note - Dictate Date Seen: May 16, 2024 Medical Necessity Reason Pt with a Central, PICC or Fol: No The following are medically ne: Lara Catheter Reason for lara catheter: Strict I&O Subjective Patient seen and examined at bedside. Remains on supplemental oxygen Overnight events reviewed. vital signs Vital Sign Date Time Temp Pulse Resp B/P (MAP) Pulse Ox O2 Delivery O2 Flow Rate FiO2 05/16/24 22:17 120 24 97 05/16/24 22:09 Oxymizer 8.0 05/16/24 22:09 N/A 05/16/24 21:19 164/88 05/16/24 21:00 98.3 98.3 Total Intake and Output 05/15/24 05/15/24 05/16/24 15:00 23:00 07:00 Intake Total 300 ml 990 ml 2100 ml Balance 300 ml 990 ml 2100 ml medications Current Medications Medications Dose Ordered Sig/Julio Route Start Time Stop Time Status Last Admin Dose Admin Cefepime HCl 50 ml @ 12.5 mls/hr Q8HR IV 05/10/24 14:00 05/16/24 23:04 12.5 MLS/HR Aspirin 81 mg DAILY PO 05/10/24 10:00 05/16/24 08:28 81 MG Atorvastatin Calcium 80 mg HS PO 05/10/24 22:00 05/16/24 21:19 80 MG Metoprolol Tartrate 25 mg Q12HR PO 05/10/24 10:00 05/16/24 21:19 25 MG Acetaminophen 650 mg Q6HP PRN PO 05/10/24 08:45 05/15/24 05:11 650 MG Enoxaparin Sodium 100 mg Q12HR SC 05/10/24 10:00 UNV Lisinopril 10 mg DAILY PO 05/10/24 10:00 05/16/24 08:27 10 MG Morphine Sulfate 2 mg Q4HPRN PRN IV 05/10/24 22:15 05/16/24 21:18 2 MG Vancomycin HCl 0 ml @ 0 mls/hr UD IV 05/11/24 09:00 Ondansetron HCl 4 mg Q6HPRN PRN IV 05/12/24 03:30 05/14/24 15:14 4 MG Vancomycin HCl 250 ml @ 200 mls/hr Q8H IV 05/13/24 02:00 05/16/24 18:04 200 MLS/HR Albuterol 2.5 mg Q4HWA NEB 05/15/24 15:30 05/16/24 22:09 2.5 MG Ipratropium [place] 0.5 mg Q4HWA NEB 05/15/24 15:30 05/16/24 22:09 0.5 MG Albuterol 2.5 mg Q2HPRN PRN NEB 05/15/24 15:30 Guaifenesin/ Codeine Phosphate 10 ml Q4HPRN PRN PO 05/15/24 15:30 05/16/24 18:17 10 ML Hydrocortisone Sodium Succinate 50 mg Q6HR IV 05/16/24 18:00 05/16/24 23:05 50 MG Amlodipine Besylate 10 mg DAILY PO 05/17/24 10:00 Enoxaparin Sodium 40 mg DAILY SC 05/17/24 10:00 objective Gen.: Patient lying in bed in no apparent distress. On supplemental oxygen. Head: Normocephalic, atraumatic. Eyes: EOMI/PERRLA. Ears: Normal hearing. Normal anatomy. Neck/trachea: Trachea midline, supple. Nose: Normal external anatomy. Mouth: Moist mucous membranes. Chest: Decreased air entry bilaterally. No wheezing or rhonchi. Bibasilar crackles. Cardiovascular: Positive S1, positive S2. Regular rate and rhythm. Abdomen: Positive bowel sounds in all 4 quadrants. Soft, non-tender, non- distended. : Deferred. Rectal: Deferred. Skin: Warm, dry. Intact. Extremities: 2+ radial pulses bilaterally. No lower extremity edema. Neuro: Awake, alert, oriented x3. No gross motor or sensory deficits. Cranial nerves II through XII intact. Gait not assessed. laboratory and microbiology Laboratory Tests 05/16/24 08:22 Test 05/16/24 08:22 Range/Units Serum Glucose 128 H 74-106 mg/dL Assessment/Plan Impression: Acute hypoxic respiratory failure Multifocal pneumonia Influenza type a Nicotine dependence Morbid obesity with a BMI of 44 Anxiety Hypokalemia Events: Remains on supplemental O2 Oxymizer at 8 LPM. - O2 sat 97% Taper O2 as tolerated CT chest notable for diffuse ground-glass opacity and septal thickening in both lungs. Increase steroid dose. Continue bronchodilators q.4 hours Continue antibiotics Hydrocortisone 50 mg q.6 hours. Antitussive for cough - Robitussin w/ Codeine. IS. F/u sputum cultures. Generalized body aches Pain control Avoid oversedation Diurese w/ Lasix - 2 doses given IV push Monitor renal function Monitor WBC. Monitor respiratory status closely d/t high O2 requirements. Labs and imaging reviewed. Rest of plan as noted below. Plan: Supplemental oxygen . Keep O2 saturation above 92%. Continue antibiotics Send sputum for Gram stain and culture if able to produce. Tamiflu course for influenza type A Chest x-ray imaging report reviewed. Multifocal pneumonia. Continue antibiotics. Send sputum for Gram stain and culture if able to produce. Bronchodilators Anxiolytic as needed Monitor electrolytes. Supplement potassium. Smoking cessation discussed for greater than 10 minutes. Accu-Cheks, insulin sliding scale. Prognosis: Guarded given multiple comorbidities. Rest of plan per hospitalist and other consultants. Thank you Dr. Hale for allowing me to participate in this patient's care. Further recommendations will depend on patient's clinical course. Please do not hesitate to contact me if you have any questions or concerns. This medical document was created using an electronic medical record system with [employer] dictation system. Although this document has been carefully reviewed, there may still be some phonetic and typographical errors. These areas are purely typographical due to imperfections of the software programs, and do not reflect any compromise in the patient's medical care. Dietary Evaluation Review Comments: 1) Consider a CCHO 45g/Cardiac diet 2) Continue current plan of care Expected Outcomes/Goals: F/U in 3-5 days Plan discussed with: Patient, Other (JUAN LUIS Tobias) ARTHUR WEBB MD May 16, 2024 23:14
[2024-05-17] VITALS (20 sets, daily range): BP systolic 106–170; BP diastolic 21–110; PULSE 93–136; RESP 18–34; TEMP 98.1–98.7; O2SAT 90–99
[2024-05-17 07:52] LABS: Basophils # (auto) 0 10 ^3/uL (0-0.2); Basophils % (auto) 0.2 % (0.0-2.0); Eosinophils # (auto) 0.2 10 ^3/uL (0-0.8); Eosinophils % (auto) 1.1 % (0.0-7.0); Hematocrit 30.8 % (36.0-46.0); Lymphocytes % (auto) 11.5 % (10.0-50.0); Mean Corpuscular Hemoglobin 28.6 pg (28.0-32.0); Mean Corpuscular Hgb Conc. 32.4 g/dL (32.0-36.0); Mean Corpuscular Volume 88.3 fL (80.0-100.0); Monocytes % (auto) 5.7 % (0.0-12.0); Neutrophils # (auto) 14.2 10 ^3/uL (1.6-8.6); Neutrophils % (auto) 81.5 % (37.0-80.0); Nucleated Red Blood Cells % 0.1 %; Platelet Count (auto) 338 10^3/uL (140-450); Red Blood Cells 3.48 10^6/uL (4.0-5.20); Red Cell Distribution Width 14.9 % (11.8-14.3); White Blood Cell 17.5 10^3/uL (4.4-10.8)
[2024-05-17 08:10] LABS: Alanine Aminotransferase 25 U/L (7-40); Alkaline Phosphatase 85 U/L (46-116); Anion Gap 6 (5-15); Aspartate Aminotransferase 34 U/L (13-40); BUN/Creatinine Ratio 16.3 (10.0-20.0); Bilirubin, Total 0.5 mg/dL (0.2-1.0); Calcium 8.8 mg/dL (8.7-10.4); Chloride 101 mmol/L (98-107); Magnesium 1.8 mg/dL (1.6-2.6); Phosphorus 2.6 mg/dL (2.4-5.1); Sodium 140 mmol/L (136-145); Total Protein 6.5 g/dL (5.7-8.2)
[2024-05-17 08:12] LABS: Blood Urea Nitrogen 8 mg/dL (9-23); Carbon Dioxide 33 mmol/L (20-31); Glucose 115 mg/dL (74-106); Potassium 3.4 mmol/L (3.5-5.1)
[2024-05-17] MEDS: ENOXAPARIN SOD 40 MG/0.4 ML SYRINGE SC SCH (09:44)
[2024-05-17] MEDS: amLODIPine BESYLATE 5 MG TAB PO SCH (09:45)
[2024-05-17] MEDS: POTASSIUM EFFERVESENT TAB 25 MEQ PO ONE (11:34)
[2024-05-17] MEDS: clonazePAM 0.5 MG TAB PO PRN (12:15)
[2024-05-17 14:10] LABS: Base Excess 10.2 mmol/L (-2.0-3.0)
[2024-05-17] MEDS: LEVALBUTEROL HCL 1.25 MG/3 ML NEB NEB SCH (18:59)
[2024-05-17] MEDS: IPRATROPIUM BROM 0.5 MG/2.5ML INH SOL NEB SCH (18:59)
--- NOTE | 2024-05-17 20:29 | DVHPN2 ---
Progress Note - Dictate Date Seen: May 17, 2024 Medical Necessity Reason Pt with a Central, PICC or Fol: No Subjective Patient seen and examined at bedside. Remains on supplemental oxygen Overnight events reviewed. vital signs Vital Sign Date Time Temp Pulse Resp B/P (MAP) Pulse Ox O2 Delivery O2 Flow Rate FiO2 05/17/24 19:08 121 24 92 05/17/24 18:54 Simple Mask* 10 N/A Oxymizer 05/17/24 17:00 98.1 151/21 (64) 98.1 Total Intake and Output 05/16/24 05/16/24 05/17/24 15:00 23:00 07:00 Intake Total 300 ml 1150 ml 1250 ml Output Total 1200 ml 1500 ml Balance 300 ml -50 ml -250 ml medications Current Medications Medications Dose Ordered Sig/Julio Route Start Time Stop Time Status Last Admin Dose Admin Cefepime HCl 50 ml @ 12.5 mls/hr Q8HR IV 05/10/24 14:00 05/17/24 13:49 12.5 MLS/HR Aspirin 81 mg DAILY PO 05/10/24 10:00 05/17/24 09:44 81 MG Atorvastatin Calcium 80 mg HS PO 05/10/24 22:00 05/16/24 21:19 80 MG Metoprolol Tartrate 25 mg Q12HR PO 05/10/24 10:00 05/17/24 09:45 25 MG Acetaminophen 650 mg Q6HP PRN PO 05/10/24 08:45 05/15/24 05:11 650 MG Enoxaparin Sodium 100 mg Q12HR SC 05/10/24 10:00 UNV Lisinopril 10 mg DAILY PO 05/10/24 10:00 05/17/24 09:44 10 MG Morphine Sulfate 2 mg Q4HPRN PRN IV 05/10/24 22:15 05/16/24 21:18 2 MG Vancomycin HCl 0 ml @ 0 mls/hr UD IV 05/11/24 09:00 Ondansetron HCl 4 mg Q6HPRN PRN IV 05/12/24 03:30 05/14/24 15:14 4 MG Vancomycin HCl 250 ml @ 200 mls/hr Q8H IV 05/13/24 02:00 05/17/24 17:59 200 MLS/HR Albuterol 2.5 mg Q2HPRN PRN NEB 05/15/24 15:30 Guaifenesin/ Codeine Phosphate 10 ml Q4HPRN PRN PO 05/15/24 15:30 05/17/24 09:43 10 ML Hydrocortisone Sodium Succinate 50 mg Q6HR IV 05/16/24 18:00 05/17/24 17:59 50 MG Amlodipine Besylate 10 mg DAILY PO 05/17/24 10:00 05/17/24 09:45 10 MG Enoxaparin Sodium 40 mg DAILY SC 05/17/24 10:00 05/17/24 09:44 40 MG Clonazepam 0.25 mg Q12HP PRN PO 05/17/24 11:45 05/17/24 12:15 0.25 MG Levalbuterol HCl 0.625 mg Q4HR NEB 05/17/24 18:00 05/17/24 18:59 0.625 MG Ipratropium [place] 0.5 mg Q4HR NEB 05/17/24 18:00 05/17/24 18:59 0.5 MG objective Gen.: Patient lying in bed in no apparent distress. On supplemental oxygen. Head: Normocephalic, atraumatic. Eyes: EOMI/PERRLA. Ears: Normal hearing. Normal anatomy. Neck/trachea: Trachea midline, supple. Nose: Normal external anatomy. Mouth: Moist mucous membranes. Chest: Decreased air entry bilaterally. No wheezing or rhonchi. Bibasilar crackles. Cardiovascular: Positive S1, positive S2. Regular rate and rhythm. Abdomen: Positive bowel sounds in all 4 quadrants. Soft, non-tender, non- distended. : Deferred. Rectal: Deferred. Skin: Warm, dry. Intact. Extremities: 2+ radial pulses bilaterally. No lower extremity edema. Neuro: Awake, alert, oriented x3. No gross motor or sensory deficits. Cranial nerves II through XII intact. Gait not assessed. laboratory and microbiology Laboratory Tests 05/17/24 06:28 Test 05/17/24 06:28 Range/Units Serum Glucose 115 H 74-106 mg/dL Assessment/Plan Impression: Acute hypoxic respiratory failure Multifocal pneumonia Influenza type a Nicotine dependence Morbid obesity with a BMI of 44 Anxiety Hypokalemia Events: Remains on supplemental O2 Oxymizer at 15 LPM - on nonrebreather Taper O2 as tolerated Continue IV steroids Continue bronchodilators - ipratropium/albuterol Continue antibiotics Hydrocortisone 50 mg q.6 hours. IS. Sputum cultures show normal oropharyngeal penny Monitor WBC. Monitor respiratory status closely d/t high O2 requirements. Labs and imaging reviewed. Rest of plan as noted below. Plan: Supplemental oxygen . Keep O2 saturation above 92%. Tamiflu course for influenza type A Chest x-ray imaging report reviewed. Multifocal pneumonia. Continue antibiotics. MRSA negative Sputum cultures show normal oropharyngeal penny Blood cultures show no growth x 5 days Bronchodilators Anxiolytic as needed Monitor electrolytes. Supplement potassium. Smoking cessation discussed for greater than 10 minutes. Accu-Cheks for glycemic monitoring Prognosis: Guarded given multiple comorbidities. Rest of plan per hospitalist and other consultants. Thank you Dr. Hale for allowing me to participate in this patient's care. Further recommendations will depend on patient's clinical course. Please do not hesitate to contact me if you have any questions or concerns. This medical document was created using an electronic medical record system with [employer] dictation system. Although this document has been carefully reviewed, there may still be some phonetic and typographical errors. These areas are purely typographical due to imperfections of the software programs, and do not reflect any compromise in the patient's medical care. Dietary Evaluation Review Comments: 1) Consider a CCHO 45g/Cardiac diet 2) Continue current plan of care Expected Outcomes/Goals: F/U in 3-5 days Plan discussed with: Patient, Other (JUAN LUIS Hopper) ARTHUR WEBB MD May 17, 2024 20:29
--- NOTE | 2024-05-17 21:44 | DVHPN2 ---
Assessment/Plan Assessment/Plan Progress note Subjective 43-year-old female with hypertension, morbid obesity admitted for NSTEMI and flu a. patient seen by me today during rounds Persistent hypoxia, continue with oxygen supplementation, send CT angio D-dimer is elevated Objective Physical exam Alert, oriented x3 PERRLA on oximizer Morbidly obese Scattered rhonchi S1-S2 tachycardia Abdomen soft nontender Moving all four extremities No lower extremity edema Lab Flu a positive Leukocytosis Troponin elevation Hypokalemia EKG Sinus tach with PVCs Imaging Multiple nodular opacity in chest x-ray CT chest with GGO Assessment and plan Acute hypoxic respiratory failure Influenza a Superimposed with pneumonia, possible staph aureus Obesity Hypertension Hypokalemia Type 2 [place] demand ischemia titrate down o2 Maintain oxygen saturation above 94% Tamiflu Cefepime day 5 and vancomycin day 3 MRSA swab neg Sputum culture NGTD Replete potassium restart home meds Pulmonary consult appreciated c/w HFNC dc prednisone, start hydrocortisone 50mg q6 Q.4 albuterol and ipratropium dc lara ivf Lines PIV Maintain potassium of 4, phosphate of 3 and magnesium of 2 Diet reg DVT prophylaxis Lovenox Code status full code Goals of care on limited Patient is okay with intubation Plan discussed with: Patient My Orders Orders - KENNEDY PRIEST MD Procedure Category Date Status Time Clonazepam Tablet PHA 05/17/24 In Process (Klonopin Tablet) 11:45 Abg W/ Co-Ox RT 05/17/24 Logged 13:[address] 05/18/24 Logged Contrast 08:00 Date of Service: May 18, 2024 Billing Provider: KENNEDY PRIEST MD Common Visit Codes: [id number] INP/OBS CARE(HIGH) KENNEDY PRIEST MD May 17, 2024 21:44
[2024-05-18] VITALS (23 sets, daily range): BP systolic 114–142; BP diastolic 84–91; PULSE 70–128; RESP 18–24; TEMP 97.8–98.7; O2SAT 87–100
[2024-05-18 06:18] LABS: Basophils # (auto) 0 10 ^3/uL (0-0.2); Basophils % (auto) 0.2 % (0.0-2.0); Eosinophils # (auto) 0 10 ^3/uL (0-0.8); Eosinophils % (auto) 0.2 % (0.0-7.0); Hematocrit 30.3 % (36.0-46.0); Hemoglobin 9.7 g/dL (12.2-16.2); Lymphocytes # (auto) 1.3 10 ^3/uL (0.4-5.4); Lymphocytes % (auto) 6.9 % (10.0-50.0); Mean Corpuscular Hgb Conc. 32.1 g/dL (32.0-36.0); Mean Corpuscular Volume 87.2 fL (80.0-100.0); Monocytes # (auto) 0.8 10 ^3/uL (0-1.3); Monocytes % (auto) 4.2 % (0.0-12.0); Neutrophils # (auto) 16.8 10 ^3/uL (1.6-8.6); Neutrophils % (auto) 88.5 % (37.0-80.0); Nucleated Red Blood Cells % 0.1 %; Platelet Count (auto) 408 10^3/uL (140-450); Red Blood Cells 3.47 10^6/uL (4.0-5.20); Red Cell Distribution Width 15.1 % (11.8-14.3)
[2024-05-18 06:27] LABS: Anion Gap 7 (5-15); Chloride 98 mmol/L (98-107); Potassium 3.7 mmol/L (3.5-5.1); Sodium 139 mmol/L (136-145)
[2024-05-18 06:29] LABS: Calcium 9.4 mg/dL (8.7-10.4)
[2024-05-18 06:33] LABS: BUN/Creatinine Ratio 15.4 (10.0-20.0)
[2024-05-18 06:36] LABS: Blood Urea Nitrogen 8 mg/dL (9-23); Carbon Dioxide 34 mmol/L (20-31); Glucose 132 mg/dL (74-106)
[2024-05-18] MEDS: IOHEXOL 350 MG/ML 100ML IJ ONE (09:46)
[2024-05-18 13:04] LABS: Rapid Influenza A Negative (Negative); Rapid Influenza B Negative (Negative)
--- NOTE | 2024-05-18 13:24 | DVH ---
CTA Chest with intravenous contrast INDICATION: r/o pe COMPARISON: CT CHEST WITHOUT CONTRAST on DOS: 05/16/24 TECHNIQUE: Multidetector spiral CTA of the chest was performed of the chest with intravenous contrast . PULMONARY ANGIOGRAPHY PROTOCOL was utilized using a bolus-tracking technique centered on the main p ulmonary artery. Axial, coronal and sagittal multiplanar and MIP reformats were performed. CONTRAST: Type of contrast: Omni 350 Contrast injected: 100 ml Radiation dose : Chest: CTDI volume is 36 mGy. Dose-length product is 912.07 mGy*cm The dose indicators for CT are the volume computed Tomography (CT) dose Index (CTDIvol) and the dose Length product (DLP), and are measured in units of mGy and mGy-cm, respectively. These indicators are not patient dose, but values generated from the CT scanner acquisition factors. The report includes radiation exposure data for exposures received during this examination. Findings: Pulmonary artery: No pulmonary embolism Lower neck: Normal thyroid. Lungs: Diffuse ground-glass opacity and septal thickening throughout both lungs. Heart/Vascular Structures: Normal heart size. No pericardial effusion. Lymph Nodes: Subcentimeter mediastinal lymph nodes are noted. Pleura: No pleural effusion or significant pneumothorax. Musculoskeletal: No acute osseous abnormality. Soft tissues: Normal. Upper abdomen: Limited portions of the upper abdomen are unremarkable. IMPRESSION: 1. No pulmonary embolism. 2. Stable pulmonary findings. Differential considerations include hypersensitivity pneumonitis and a typical pneumonia. Clinical correlation and continued follow-up is recommended. HS:Y
[2024-05-18] MEDS: FAMOTIDINE (10MG/ML) 2ML VL IV SCH (22:17)
--- NOTE | 2024-05-18 22:56 | DVHPN2 ---
Assessment/Plan Assessment/Plan Progress note Subjective 43-year-old female with hypertension, morbid obesity admitted for NSTEMI and flu a. patient seen by me today during rounds Negative for PE, continue with O2 requirements Objective Physical exam Alert, oriented x3 PERRLA on oximizer Morbidly obese Scattered rhonchi S1-S2 tachycardia Abdomen soft nontender Moving all four extremities No lower extremity edema Lab Flu a positive Leukocytosis Troponin elevation Hypokalemia EKG Sinus tach with PVCs Imaging Multiple nodular opacity in chest x-ray CT chest with GGO Assessment and plan Acute hypoxic respiratory failure Influenza a Superimposed with pneumonia, possible staph aureus Obesity Hypertension Hypokalemia Type 2 [place] demand ischemia titrate down o2 Maintain oxygen saturation above 94% Tamiflu c/w vanc and cefepime repeat covid and flu negative MRSA swab neg Sputum culture NGTD Replete potassium restart home meds Pulmonary consult appreciated c/w HFNC dc prednisone, start hydrocortisone 50mg q6 Q.4 albuterol and ipratropium dc lara ivf Lines PIV Maintain potassium of 4, phosphate of 3 and magnesium of 2 Diet reg DVT prophylaxis Lovenox Code status full code Goals of care on limited Patient is okay with intubation Plan discussed with: Patient My Orders Orders - KENNEDY PRIEST MD Procedure Category Date Status Time Electrocardigram EKG 05/18/24 Logged 08:54 Quantiferon-Tb Gold LAB 05/18/24 In Process 08:57 Respiratory Culture AGA 05/18/24 Logged W/ Gs 09:08 Vancomycin 1gm/200ml PHA 05/19/24 In Process Premix 02:00 Renal Function Test LAB 05/19/24 Verified 04:00 Vancomycin,Trough LAB 05/20/24 Verified 01:00 Vancomycin Per MIGUELINA 05/20/24 In Process [facility]acy [facility] 01:00 Date of Service: May 19, 2024 Billing Provider: KENNEDY PRIEST MD Common Visit Codes: [id number] INP/OBS CARE(HIGH) KENNEDY PRIEST MD May 18, 2024 22:55
--- NOTE | 2024-05-18 23:01 | DVHPN2 ---
Progress Note - Dictate Date Seen: May 18, 2024 Medical Necessity Reason Pt with a Central, PICC or Fol: No Subjective Patient seen and examined at bedside. Remains on supplemental oxygen Overnight events reviewed. vital signs Vital Sign Date Time Temp Pulse Resp B/P (MAP) Pulse Ox O2 Delivery O2 Flow Rate FiO2 05/18/24 22:16 91 134/68 05/18/24 21:00 98.2 18 100 98.2 05/18/24 20:11 Non-Rebreather 15 N/A Total Intake and Output 05/17/24 05/17/24 05/18/24 15:00 23:00 07:00 Intake Total 300 ml 1300 ml 1100 ml Balance 300 ml 1300 ml 1100 ml medications Current Medications Medications Dose Ordered Sig/Julio Route Start Time Stop Time Status Last Admin Dose Admin Cefepime HCl 50 ml @ 12.5 mls/hr Q8HR IV 05/10/24 14:00 05/18/24 22:21 12.5 MLS/HR Aspirin 81 mg DAILY PO 05/10/24 10:00 05/18/24 11:11 81 MG Atorvastatin Calcium 80 mg HS PO 05/10/24 22:00 05/18/24 22:16 80 MG Metoprolol Tartrate 25 mg Q12HR PO 05/10/24 10:00 05/18/24 22:16 25 MG Acetaminophen 650 mg Q6HP PRN PO 05/10/24 08:45 05/18/24 17:51 650 MG Enoxaparin Sodium 100 mg Q12HR SC 05/10/24 10:00 UNV Lisinopril 10 mg DAILY PO 05/10/24 10:00 05/18/24 11:12 10 MG Morphine Sulfate 2 mg Q4HPRN PRN IV 05/10/24 22:15 05/16/24 21:18 2 MG Vancomycin HCl 0 ml @ 0 mls/hr UD IV 05/11/24 09:00 Ondansetron HCl 4 mg Q6HPRN PRN IV 05/12/24 03:30 05/14/24 15:14 4 MG Albuterol 2.5 mg Q2HPRN PRN NEB 05/15/24 15:30 Guaifenesin/ Codeine Phosphate 10 ml Q4HPRN PRN PO 05/15/24 15:30 05/17/24 09:43 10 ML Hydrocortisone Sodium Succinate 50 mg Q6HR IV 05/16/24 18:00 05/18/24 17:51 50 MG Amlodipine Besylate 10 mg DAILY PO 05/17/24 10:00 05/18/24 11:13 10 MG Enoxaparin Sodium 40 mg DAILY SC 05/17/24 10:00 05/18/24 11:10 40 MG Clonazepam 0.25 mg Q12HP PRN PO 05/17/24 11:45 05/18/24 11:09 0.25 MG Levalbuterol HCl 0.625 mg Q4HR NEB 05/17/24 18:00 05/18/24 20:11 0.625 MG Ipratropium [place] 0.5 mg Q4HR NEB 05/17/24 18:00 05/18/24 20:11 0.5 MG Vancomycin HCl 200 ml @ 200 mls/hr Q8H IV 05/19/24 02:00 Famotidine 20 mg BID IV 05/18/24 22:00 05/18/24 22:17 20 MG objective Gen.: Patient lying in bed in no apparent distress. On supplemental oxygen. Head: Normocephalic, atraumatic. Eyes: EOMI/PERRLA. Ears: Normal hearing. Normal anatomy. Neck/trachea: Trachea midline, supple. Nose: Normal external anatomy. Mouth: Moist mucous membranes. Chest: Decreased air entry bilaterally. No wheezing or rhonchi. Bibasilar crackles. Cardiovascular: Positive S1, positive S2. Regular rate and rhythm. Abdomen: Positive bowel sounds in all 4 quadrants. Soft, non-tender, non- distended. : Deferred. Rectal: Deferred. Skin: Warm, dry. Intact. Extremities: 2+ radial pulses bilaterally. No lower extremity edema. Neuro: Awake, alert, oriented x3. No gross motor or sensory deficits. Cranial nerves II through XII intact. Gait not assessed. laboratory and microbiology Laboratory Tests 05/18/24 05:01 Test 05/18/24 05:01 Range/Units Serum Glucose 132 H 74-106 mg/dL Assessment/Plan Impression: Acute hypoxic respiratory failure Multifocal pneumonia Influenza type a Nicotine dependence Morbid obesity with a BMI of 44 Anxiety Hypokalemia Events: Remains on supplemental O2 Oxymizer at 8 LPM - on nonrebreather Taper O2 as tolerated Improved O2 requirements Continue IV steroids Continue bronchodilators Continue antibiotics Start antifungals Hydrocortisone 50 mg q.6 hours. IS. Monitor WBC. Monitor respiratory status closely d/t high O2 requirements. Labs and imaging reviewed. Rest of plan as noted below. Plan: Supplemental oxygen . Keep O2 saturation above 92%. Tamiflu course for influenza type A Chest x-ray imaging report reviewed. Multifocal pneumonia. Continue antibiotics. MRSA negative Sputum cultures show normal oropharyngeal penny Blood cultures show no growth x 5 days Bronchodilators Anxiolytic as needed Monitor electrolytes. Supplement potassium. Smoking cessation discussed for greater than 10 minutes. Accu-Cheks for glycemic monitoring Prognosis: Guarded given multiple comorbidities. Rest of plan per hospitalist and other consultants. Thank you Dr. Hale for allowing me to participate in this patient's care. Further recommendations will depend on patient's clinical course. Please do not hesitate to contact me if you have any questions or concerns. This medical document was created using an electronic medical record system with [employer] dictation system. Although this document has been carefully reviewed, there may still be some phonetic and typographical errors. These areas are purely typographical due to imperfections of the software programs, and do not reflect any compromise in the patient's medical care. Dietary Evaluation Review Comments: 1) Consider a CCHO 45g/Cardiac diet 2) Continue current plan of care Expected Outcomes/Goals: F/U in 3-5 days Plan discussed with: Patient, Other (JUAN LUIS Parsons) ARTHUR WEBB MD May 18, 2024 23:01
[2024-05-19] VITALS (22 sets, daily range): BP systolic 118–141; BP diastolic 74–95; PULSE 89–121; RESP 18–22; TEMP 98–98.5; O2SAT 89–100
[2024-05-19] MEDS: VANCOMYCIN 1GM/200ML PREMIX IV SCH (02:27)
[2024-05-19 05:44] LABS: Potassium 3.7 mmol/L (3.5-5.1)
[2024-05-19 05:50] LABS: BUN/Creatinine Ratio 20.8 (10.0-20.0)
[2024-05-19 05:52] LABS: Phosphorus 3.6 mg/dL (2.4-5.1)
[2024-05-19 05:57] LABS: Albumin 3.1 g/dL (3.2-4.8)
[2024-05-19 08:02] LABS: Base Excess 6.8 mmol/L (-2.0-3.0)
--- NOTE | 2024-05-19 10:14 | DVH ---
CLINICAL INFORMATION: 43 years old, Female; decline in resp status. TECHNIQUE: Single AP portable chest radiograph was obtained. COMPARISON: XY CHEST XRAY 1 VIEW on DOS: 05/15/24, XY CHEST PORTABLE on DOS: 05/12/24, XY CHEST JEAN-PAUL BLE on DOS: 05/10/24 FINDINGS: Extensive bilateral airspace opacities and interstitial opacities, may be slightly increased compared to the prior exam. No pneumothorax. No other significant interval changes seen. Cardiac and mediasti nal contours are obscured by adjacent airspace disease. IMPRESSION: Slightly increased extensive bilateral airspace and interstitial opacities throughout both lungs.
--- NOTE | 2024-05-19 10:14 | DVHSR ---
APPROVED REPORT EXAM: Two-dimensional and M-mode echocardiogram with Doppler and color Doppler. Blood Pressure: 142/89 mmHg INDICATION persistent sob DIMENSIONS LVDd4.2 (3.8-5.7cm)LA (2D)4.6 (1.9-4.0cm)Aortic Root3.0 (2.0-3.7cm) LVDs3.0 (2.5-4.0cm)LA (MM) (1.9-4.0cm)Aortic Cusp Exc1.8 (1.5-2.0cm) EF (%) 56.6 (55-70%)Rt. Atrium3.1 (1.9-4.0cm)Asc. Aorta cm IVSd1.3 (0.7-1.1cm)RV (D)3.1 (1.8-2.4cm) PWd1.0 (0.7-1.1cm) Mitral Valve MitralMitral Stenosis E wave1.16m/sMV Mean GR.mmHg A wave1.13m/sMV Peak GR.18mmHg E/A ratio1.02D MVAcm2 DECEL [id number] 1/2 [place] Aortic Valve Aortic ValveAortic Stenosis V11.23m/Judith Mean GR.5mmHg V21.83m/Judith Peak GR.13mmHg Pulmonic Valve V20.84m/s Tricuspid Valve TR Velocity3.19m/s [id number] Other Information Technically limited study due to body habitus. Conclusion lvef 60% by visual estimate normal rv function left atrium enlarged mild grade 1 diastolic dysfunction
--- NOTE | 2024-05-19 17:09 | DVHPN2 ---
Subjective Feels somewhat slightly better Reviewed: Care Plan, H&P, Labs, Medications, Previous Orders, Radiology, Other (General Foundry Worker) Changes from previous H/P or p: No Changes Objective Vitals Vital Signs Date Time Temp Pulse Resp B/P (MAP) Pulse Ox O2 Delivery O2 Flow Rate FiO2 05/19/24 16:37 98.5 114 22 139/74 (95) 94 98.5 05/19/24 13:35 Non-Rebreather 15 N/A Intake/Output Intake and Output 05/19/24 07:00 Intake Total 2150 ml Output Total 650 ml Balance 1500 ml Intake Oral 1800 ml IV Total 350 ml Output Urine Total 650 ml # Voids 10 General Appearance: Alert, Oriented X3, Cooperative, No acute distress, mild distress HEENT: Atraumatic Lungs: Other (Crackles bilateral lungs) Cardiovascular: Regular rate Abdomen: Normal bowel sounds Extremities: Other (1+ edema of the lower extremities) Medications Current Medications Medications Dose Ordered Sig/Julio Route Start Time Stop Time Status Last Admin Dose Admin Cefepime HCl 50 ml @ 12.5 mls/hr Q8HR IV 05/10/24 14:00 05/19/24 13:50 12.5 MLS/HR Aspirin 81 mg DAILY PO 05/10/24 10:00 05/19/24 08:52 81 MG Atorvastatin Calcium 80 mg HS PO 05/10/24 22:00 05/18/24 22:16 80 MG Metoprolol Tartrate 25 mg Q12HR PO 05/10/24 10:00 05/19/24 08:53 25 MG Acetaminophen 650 mg Q6HP PRN PO 05/10/24 08:45 05/18/24 17:51 650 MG Enoxaparin Sodium 100 mg Q12HR SC 05/10/24 10:00 UNV Lisinopril 10 mg DAILY PO 05/10/24 10:00 05/19/24 08:54 10 MG Morphine Sulfate 2 mg Q4HPRN PRN IV 05/10/24 22:15 05/16/24 21:18 2 MG Vancomycin HCl 0 ml @ 0 mls/hr UD IV 05/11/24 09:00 Ondansetron HCl 4 mg Q6HPRN PRN IV 05/12/24 03:30 05/14/24 15:14 4 MG Albuterol 2.5 mg Q2HPRN PRN NEB 05/15/24 15:30 Guaifenesin/ Codeine Phosphate 10 ml Q4HPRN PRN PO 05/15/24 15:30 05/19/24 16:25 10 ML Hydrocortisone Sodium Succinate 50 mg Q6HR IV 05/16/24 18:00 05/19/24 11:39 50 MG Amlodipine Besylate 10 mg DAILY PO 05/17/24 10:00 05/19/24 08:55 10 MG Enoxaparin Sodium 40 mg DAILY SC 05/17/24 10:00 05/19/24 08:51 40 MG Clonazepam 0.25 mg Q12HP PRN PO 05/17/24 11:45 05/19/24 04:15 0.25 MG Levalbuterol HCl 0.625 mg Q4HR NEB 05/17/24 18:00 05/19/24 13:35 0.625 MG Ipratropium [place] 0.5 mg Q4HR NEB 05/17/24 18:00 05/19/24 13:35 0.5 MG Vancomycin HCl 200 ml @ 200 mls/hr Q8H IV 05/19/24 02:00 05/19/24 08:52 200 MLS/HR Famotidine 20 mg BID IV 05/18/24 22:00 05/19/24 08:52 20 MG Laboratory Results Laboratory Tests 05/18/24 05:01 05/19/24 05:17 Chemistry Test 05/19/24 05:17 Albumin 3.1 g/dL (3.2-4.8) L Calcium Level 9.0 mg/dL (8.7-10.4) Phosphorus Level 3.6 mg/dL (2.4-5.1) Urinalysis Test 05/11/24 15:30 Urine Color Yellow (Yellow) Urine Clarity Clear (Clear) Urine pH 6.5 (5.0-9.0) Urine Specific [place] 1.027 (1.001-1.035) Urine Protein 2+ (Negative) H Urine Ketones Negative (Negative) Urine Blood Trace /uL (Negative) H Urine Nitrite Negative (Negative) Urine Bilirubin Negative (Negative) Urine Urobilinogen 2 mg/dL (Negative) H Urine Leukocyte Esterase Negative /uL (Negative) Urine RBC 4 /hpf (0 - 4) Urine WBC 4 /hpf (0 - 5) Urine Squamous Epithelial Cells None seen /hpf (<5) Urine Bacteria None seen /hpf (None Seen) Urine Mucus Few (None Seen) Urine Glucose Normal mg/dL (Normal) Blood Gas Results Test 05/19/24 07:55 Arterial Blood pH 7.451 (7.350-7.450) FiO2 % 100.0 Microbiology Microbiology Date/Time Source Procedure Growth Status 05/18/24 11:30 Nasopharynx Coronavirus COVID-19 PCR ([facility]) - Final Complete 05/14/24 00:30 Nose MRSA Screen - Final Complete 05/10/24 07:13 Blood Blood Culture - Final NO GROWTH AFTER 5 DAYS OF INCUBATION. Complete Assessment/Plan Assessment/Plan Respiratory failure with influenza a pneumonia and hypoxemia Morbid obesity Anemia Elevated D-dimer and negative PE Lower extremity edema Plan: Repeat CBC. Echocardiogram. Lower extremity ultrasound. Further plan per orders Plan discussed with: Patient Date of Service: May 19, 2024 Billing Provider: YEIMY PFEIFFER MD Common Visit Codes: [id number] INP/OBS CARE(HIGH) YEIMY PFEIFFER MD May 19, 2024 17:09
--- NOTE | 2024-05-19 18:15 | DVH ---
Bilateral lower extremity venous duplex Clinical History: DVT BLE Comparison: None Technique: Duplex Doppler evaluation of the deep venous systems of both lower extremities from the common femora l veins to the popliteal veins including color Doppler and spectral/pulsed waveform analysis was perf ormed. Findings: RIGHT SIDE: The common femoral vein demonstrates appropriate compressibility and waveform variability. There is compressibility/patency of the great saphenous vein at the proximal thigh. The femoral vein demonstrates appropriate compressibility and waveform variability. The deep femoral vein demonstrates appropriate compressibility and waveform variability. The popliteal vein demonstrates appropriate compressibility and waveform variability. There is normal compressibility at the tibioperoneal trunk. LEFT SIDE: The common femoral vein demonstrates appropriate compressibility and waveform variability. There is compressibility/patency of the great saphenous vein at the proximal thigh. The femoral vein demonstrates appropriate compressibility and waveform variability. The deep femoral vein demonstrates appropriate compressibility and waveform variability. The popliteal vein demonstrates appropriate compressibility and waveform variability. There is normal compressibility at the tibioperoneal trunk. Impression: 1. No right or left femoropopliteal venous thrombosis.
--- NOTE | 2024-05-19 23:41 | DVHPN2 ---
Progress Note - Dictate Date Seen: May 19, 2024 Medical Necessity Reason Pt with a Central, PICC or Fol: No Subjective Patient seen and examined at bedside. Remains on supplemental oxygen Overnight events reviewed. vital signs Vital Sign Date Time Temp Pulse Resp B/P (MAP) Pulse Ox O2 Delivery O2 Flow Rate FiO2 05/19/24 22:27 104 134/78 05/19/24 22:11 20 96 05/19/24 21:00 98.1 98.1 05/19/24 20:14 15.0 100 05/19/24 20:00 Non-Rebreather Total Intake and Output 05/18/24 05/18/24 05/19/24 15:00 23:00 07:00 Intake Total 50 ml 1250 ml 850 ml Output Total 650 ml Balance 50 ml 1250 ml 200 ml medications Current Medications Medications Dose Ordered Sig/Julio Route Start Time Stop Time Status Last Admin Dose Admin Cefepime HCl 50 ml @ 12.5 mls/hr Q8HR IV 05/10/24 14:00 05/19/24 21:37 12.5 MLS/HR Aspirin 81 mg DAILY PO 05/10/24 10:00 05/19/24 08:52 81 MG Atorvastatin Calcium 80 mg HS PO 05/10/24 22:00 05/19/24 21:26 80 MG Metoprolol Tartrate 25 mg Q12HR PO 05/10/24 10:00 05/19/24 21:27 25 MG Acetaminophen 650 mg Q6HP PRN PO 05/10/24 08:45 05/18/24 17:51 650 MG Enoxaparin Sodium 100 mg Q12HR SC 05/10/24 10:00 UNV Lisinopril 10 mg DAILY PO 05/10/24 10:00 05/19/24 08:54 10 MG Morphine Sulfate 2 mg Q4HPRN PRN IV 05/10/24 22:15 05/16/24 21:18 2 MG Vancomycin HCl 0 ml @ 0 mls/hr UD IV 05/11/24 09:00 Ondansetron HCl 4 mg Q6HPRN PRN IV 05/12/24 03:30 05/14/24 15:14 4 MG Albuterol 2.5 mg Q2HPRN PRN NEB 05/15/24 15:30 Guaifenesin/ Codeine Phosphate 10 ml Q4HPRN PRN PO 05/15/24 15:30 05/19/24 16:25 10 ML Hydrocortisone Sodium Succinate 50 mg Q6HR IV 05/16/24 18:00 05/19/24 17:25 50 MG Amlodipine Besylate 10 mg DAILY PO 05/17/24 10:00 05/19/24 08:55 10 MG Enoxaparin Sodium 40 mg DAILY SC 05/17/24 10:00 05/19/24 08:51 40 MG Clonazepam 0.25 mg Q12HP PRN PO 05/17/24 11:45 05/19/24 22:16 0.25 MG Levalbuterol HCl 0.625 mg Q4HR NEB 05/17/24 18:00 05/19/24 21:51 0.625 MG Ipratropium [place] 0.5 mg Q4HR NEB 05/17/24 18:00 05/19/24 21:51 0.5 MG Vancomycin HCl 200 ml @ 200 mls/hr Q8H IV 05/19/24 02:00 05/19/24 17:26 200 MLS/HR Famotidine 20 mg BID IV 05/18/24 22:00 05/19/24 21:27 20 MG Furosemide 20 mg BIDD IV 05/20/24 06:00 05/23/24 05:59 objective Gen.: Patient lying in bed in no apparent distress. On supplemental oxygen. Head: Normocephalic, atraumatic. Eyes: EOMI/PERRLA. Ears: Normal hearing. Normal anatomy. Neck/trachea: Trachea midline, supple. Nose: Normal external anatomy. Mouth: Moist mucous membranes. Chest: Decreased air entry bilaterally. No wheezing or rhonchi. Bibasilar crackles. Cardiovascular: Positive S1, positive S2. Regular rate and rhythm. Abdomen: Positive bowel sounds in all 4 quadrants. Soft, non-tender, non- distended. : Deferred. Rectal: Deferred. Skin: Warm, dry. Intact. Extremities: 2+ radial pulses bilaterally. No lower extremity edema. Neuro: Awake, alert, oriented x3. No gross motor or sensory deficits. Cranial nerves II through XII intact. Gait not assessed. laboratory and microbiology Laboratory Tests 05/19/24 05:17 05/18/24 05:01 Test 05/19/24 05:17 Range/Units Serum Glucose 143 H 74-106 mg/dL Assessment/Plan Impression: Acute hypoxic respiratory failure Multifocal pneumonia Influenza type a Nicotine dependence Morbid obesity with a BMI of 44 Anxiety Hypokalemia Events: Remains on supplemental O2 On 11 LPM nonrebreather Taper O2 as tolerated U/S venous Doppler of BLE shows no evidence of DVT. CTA shows no e/o pulmonary embolism. ABG reviewed, compensated. Feels slightly better. Still has PULIDO. Continue IV steroids Continue bronchodilators Continue antibiotics Hydrocortisone 50 mg q.6 hours. IS. Recommend diuresis - bibasilar crackles. Monitor WBC. Monitor respiratory status closely d/t high O2 requirements. Labs and imaging reviewed. Rest of plan as noted below. Plan: Supplemental oxygen . Keep O2 saturation above 92%. Tamiflu course for influenza type A Chest x-ray imaging report reviewed. Multifocal pneumonia. Continue antibiotics. MRSA negative Sputum cultures show normal oropharyngeal penny Blood cultures show no growth x 5 days Bronchodilators Anxiolytic as needed Monitor electrolytes. Supplement potassium. Smoking cessation discussed for greater than 10 minutes. Accu-Cheks for glycemic monitoring Prognosis: Guarded given multiple comorbidities. Rest of plan per hospitalist and other consultants. Thank you Dr. Hale for allowing me to participate in this patient's care. Further recommendations will depend on patient's clinical course. Please do not hesitate to contact me if you have any questions or concerns. This medical document was created using an electronic medical record system with [employer] (formerly [employer]) dictation system. Although this document has been carefully reviewed, there may still be some phonetic and typographical errors. These areas are purely typographical due to imperfections of the software programs, and do not reflect any compromise in the patient's medical care. Dietary Evaluation Review Comments: 1) Consider a CCHO 45g/Cardiac diet 2) Continue current plan of care Expected Outcomes/Goals: F/U in 3-5 days Plan discussed with: Other (JUAN LUIS Parsons) ARTHUR WEBB MD May 19, 2024 23:41
[2024-05-20] VITALS (19 sets, daily range): BP systolic 117–149; BP diastolic 67–94; PULSE 87–107; RESP 18–35; TEMP 97.8–98.9; O2SAT 90–100
[2024-05-20 05:41] LABS: Basophils # (auto) 0.1 10 ^3/uL (0-0.2); Basophils % (auto) 0.4 % (0.0-2.0); Eosinophils # (auto) 0 10 ^3/uL (0-0.8); Eosinophils % (auto) 0.2 % (0.0-7.0); Hematocrit 28.9 % (36.0-46.0); Hemoglobin 9.2 g/dL (12.2-16.2); Lymphocytes # (auto) 0.9 10 ^3/uL (0.4-5.4); Lymphocytes % (auto) 4.8 % (10.0-50.0); Mean Corpuscular Hemoglobin 27.7 pg (28.0-32.0); Mean Corpuscular Hgb Conc. 31.9 g/dL (32.0-36.0); Mean Corpuscular Volume 86.7 fL (80.0-100.0); Monocytes # (auto) 0.9 10 ^3/uL (0-1.3); Monocytes % (auto) 4.7 % (0.0-12.0); Neutrophils # (auto) 17.3 10 ^3/uL (1.6-8.6); Neutrophils % (auto) 89.9 % (37.0-80.0); Nucleated Red Blood Cells % 0.2 %; Platelet Count (auto) 449 10^3/uL (140-450); Red Blood Cells 3.34 10^6/uL (4.0-5.20); Red Cell Distribution Width 14.8 % (11.8-14.3); White Blood Cell 19.3 10^3/uL (4.4-10.8)
[2024-05-20] MEDS: FUROSEMIDE 20 MG/2 ML VIAL IV SCH (05:52)
--- NOTE | 2024-05-20 08:22 | DVH ---
CLINICAL INFORMATION: 43 years old, Female; follow-up. TECHNIQUE: Single AP portable chest radiograph was obtained. COMPARISON: XY CHEST PORTABLE on DOS: 05/19/24, XY CHEST XRAY 1 VIEW on DOS: 05/15/24, XY CHEST JEAN-PAUL BLE on DOS: 05/12/24 FINDINGS: Extensive bilateral interstitial opacities and ill-defined airspace opacities, unchanged. No pneumoth orax. No other significant interval change IMPRESSION: No significant interval change as detailed above.
[2024-05-20] MEDS: VANCOMYCIN 1.25GM/250ML 250 ML IV SCH ×2 (10:00→21:38)
--- NOTE | 2024-05-20 17:07 | DVHPN2 ---
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 H/P or p: No Changes Objective Vitals Vital Signs Date Time Temp Pulse Resp B/P (MAP) Pulse Ox O2 Delivery O2 Flow Rate FiO2 05/20/24 16:36 98.2 92 18 118/67 (84) 91 98.2 05/20/24 14:32 Non-Rebreather 15.0 05/20/24 14:32 N/A Intake/Output Intake and Output 05/20/24 07:00 Intake Total 2700 ml Output Total 351 ml Balance 2349 ml Intake Oral 1950 ml IV Total 750 ml Output Urine Total 350 ml Stool Total 1 ml # Voids 9 General Appearance: Alert, Oriented X3, Cooperative, No acute distress, m oderate distress HEENT: Atraumatic Lungs: Other (Crackles and mild wheeze bilateral lungs and decreased air entry bilateral lungs) Cardiovascular: Regular rate Abdomen: Normal bowel sounds Extremities: Other (1+ edema of the lower extremities) Medications Current Medications Medications Dose Ordered Sig/Julio Route Start Time Stop Time Status Last Admin Dose Admin Cefepime HCl 50 ml @ 12.5 mls/hr Q8HR IV 05/10/24 14:00 05/20/24 15:50 12.5 MLS/HR Aspirin 81 mg DAILY PO 05/10/24 10:00 05/20/24 09:34 81 MG Atorvastatin Calcium 80 mg HS PO 05/10/24 22:00 05/19/24 21:26 80 MG Metoprolol Tartrate 25 mg Q12HR PO 05/10/24 10:00 05/20/24 09:34 25 MG Acetaminophen 650 mg Q6HP PRN PO 05/10/24 08:45 05/18/24 17:51 650 MG Enoxaparin Sodium 100 mg Q12HR SC 05/10/24 10:00 UNV Lisinopril 10 mg DAILY PO 05/10/24 10:00 05/20/24 09:33 10 MG Vancomycin HCl 0 ml @ 0 mls/hr UD IV 05/11/24 09:00 Ondansetron HCl 4 mg Q6HPRN PRN IV 05/12/24 03:30 05/14/24 15:14 4 MG Albuterol 2.5 mg Q2HPRN PRN NEB 05/15/24 15:30 Guaifenesin/ Codeine Phosphate 10 ml Q4HPRN PRN PO 05/15/24 15:30 05/20/24 16:05 10 ML Hydrocortisone Sodium Succinate 50 mg Q6HR IV 05/16/24 18:00 05/20/24 15:50 50 MG Amlodipine Besylate 10 mg DAILY PO 05/17/24 10:00 05/20/24 09:34 10 MG Enoxaparin Sodium 40 mg DAILY SC 05/17/24 10:00 05/20/24 09:33 40 MG Clonazepam 0.25 mg Q12HP PRN PO 05/17/24 11:45 05/19/24 22:16 0.25 MG Levalbuterol HCl 0.625 mg Q4HR NEB 05/17/24 18:00 05/20/24 11:06 0.625 MG Ipratropium [place] 0.5 mg Q4HR NEB 05/17/24 18:00 05/20/24 11:06 0.5 MG Famotidine 20 mg BID IV 05/18/24 22:00 05/20/24 09:33 20 MG Furosemide 20 mg BIDD IV 05/20/24 06:00 05/23/24 05:59 05/20/24 05:52 20 MG Vancomycin HCl 250 ml @ 200 mls/hr Q8H IV 05/20/24 20:00 Methylprednisolone Sodium Succinate 40 mg Q6HR IV 05/20/24 18:00 UNV Methylprednisolone Sodium Succinate 125 mg ONCE IV 05/20/24 17:15 UNV Laboratory Results Laboratory Tests 05/19/24 05:17 05/20/24 05:26 Cardiac Markers Test 05/20/24 05:26 B-Type Natriuretic Peptide 45.99 pg/mL (0-100) Urinalysis Test 05/11/24 15:30 Urine Color Yellow (Yellow) Urine Clarity Clear (Clear) Urine pH 6.5 (5.0-9.0) Urine Specific [place] 1.027 (1.001-1.035) Urine Protein 2+ (Negative) H Urine Ketones Negative (Negative) Urine Blood Trace /uL (Negative) H Urine Nitrite Negative (Negative) Urine Bilirubin Negative (Negative) Urine Urobilinogen 2 mg/dL (Negative) H Urine Leukocyte Esterase Negative /uL (Negative) Urine RBC 4 /hpf (0 - 4) Urine WBC 4 /hpf (0 - 5) Urine Squamous Epithelial Cells None seen /hpf (<5) Urine Bacteria None seen /hpf (None Seen) Urine Mucus Few (None Seen) Urine Glucose Normal mg/dL (Normal) Microbiology Microbiology Date/Time Source Procedure Growth Status 05/18/24 11:30 Nasopharynx Coronavirus COVID-19 PCR ([facility]) - Final Complete 05/14/24 00:30 Nose MRSA Screen - Final Complete 05/10/24 07:13 Blood Blood Culture - Final NO GROWTH AFTER 5 DAYS OF INCUBATION. Complete Assessment/Plan Assessment/Plan Respiratory failure with influenza a pneumonia and hypoxemia Morbid obesity Anemia Elevated D-dimer and negative PE Lower extremity edema Plan: We will add Solu-Medrol. Transferred to the D OU. Obtain ABGs. We will place on BiPAP if necessary. Repeat labs and x-ray. Notify pulmonology on the case of the new changes. Total critical care time 40 minutes Plan discussed with: Patient, Other (Nursing) My Orders Orders - YEIMY PFEIFFER MD Procedure Category Date Status Time Chest Portable XY 05/20/24 Resulted 06:00 Bilat Lower Dvt US 05/19/24 Resulted 17:09 Transfer Orders XFER 05/20/24 Transmitted 14:37 Methylprednisolone PHA 05/20/24 Logged Sod Succ (Solu Medrol 18:00 Methylprednisolone PHA 05/20/24 Logged Sod Succ (Solu Medrol 17:15 Abg W/ Co-Ox RT 05/20/24 Logged 17:03 B-Type Natriuretic LAB 05/21/24 Verified Peptide 06:00 Complete Blood Count LAB 05/21/24 Verified 06:00 Comprehensive LAB 05/21/24 Verified Metabolic Panel 06:00 Chest Portable XY 05/21/24 Transmitted 06:00 Date of Service: May 20, 2024 Billing Provider: YEIMY PFEIFFER MD Common Visit Codes: [id number] CARE 30-74 MIN YEIMY PFEIFFER MD May 20, 2024 17:07
[2024-05-20 17:31] LABS: Base Excess 11.5 mmol/L (-2.0-3.0)
[2024-05-20] MEDS: methylPREDNISolone SOD SUCC 40 MG/ML VL IV SCH (18:00)
[2024-05-20] MEDS: methylPREDNISolone SOD SUCC 40 MG/ML VL IV ONE (18:15)
[2024-05-20] MEDS: VANCOMYCIN 1GM/250ML KIT 400 ML IV ONE (21:42)
--- NOTE | 2024-05-20 23:28 | DVHPN2 ---
Progress Note - Dictate Date Seen: May 20, 2024 Medical Necessity Reason Pt with a Central, PICC or Fol: No Subjective Patient seen and examined at bedside. Upgraded to HEATHER, started on BiPAP Overnight events reviewed. vital signs Vital Sign Date Time Temp Pulse Resp B/P (MAP) Pulse Ox O2 Delivery O2 Flow Rate FiO2 05/20/24 22:00 88 35 143/94 (110) 98 05/20/24 20:39 Facial BiPAP Mask 100 05/20/24 16:36 98.2 98.2 05/20/24 14:32 15.0 Total Intake and Output 05/19/24 05/19/24 05/20/24 15:00 23:00 07:00 Intake Total 400 ml 1150 ml 1150 ml Output Total 351 ml Balance 400 ml 799 ml 1150 ml medications Current Medications Medications Dose Ordered Sig/Julio Route Start Time Stop Time Status Last Admin Dose Admin Aspirin 81 mg DAILY PO 05/10/24 10:00 05/20/24 09:34 81 MG Atorvastatin Calcium 80 mg HS PO 05/10/24 22:00 05/20/24 21:38 80 MG Metoprolol Tartrate 25 mg Q12HR PO 05/10/24 10:00 05/20/24 21:39 25 MG Acetaminophen 650 mg Q6HP PRN PO 05/10/24 08:45 05/18/24 17:51 650 MG Enoxaparin Sodium 100 mg Q12HR SC 05/10/24 10:00 UNV Lisinopril 10 mg DAILY PO 05/10/24 10:00 05/20/24 09:33 10 MG Vancomycin HCl 0 ml @ 0 mls/hr UD IV 05/11/24 09:00 Ondansetron HCl 4 mg Q6HPRN PRN IV 05/12/24 03:30 05/14/24 15:14 4 MG Albuterol 2.5 mg Q2HPRN PRN NEB 05/15/24 15:30 Guaifenesin/ Codeine Phosphate 10 ml Q4HPRN PRN PO 05/15/24 15:30 05/20/24 16:05 10 ML Hydrocortisone Sodium Succinate 50 mg Q6HR IV 05/16/24 18:00 05/20/24 17:15 50 MG Amlodipine Besylate 10 mg DAILY PO 05/17/24 10:00 05/20/24 09:34 10 MG Enoxaparin Sodium 40 mg DAILY SC 05/17/24 10:00 05/20/24 09:33 40 MG Clonazepam 0.25 mg Q12HP PRN PO 05/17/24 11:45 05/20/24 21:39 0.25 MG Levalbuterol HCl 0.625 mg Q4HR NEB 05/17/24 18:00 05/20/24 22:39 0.625 MG Ipratropium [place] 0.5 mg Q4HR NEB 05/17/24 18:00 05/20/24 22:39 0.5 MG Famotidine 20 mg BID IV 05/18/24 22:00 05/20/24 21:39 20 MG Furosemide 20 mg BIDD IV 05/20/24 06:00 05/23/24 05:59 05/20/24 17:15 20 MG Vancomycin HCl 250 ml @ 200 mls/hr Q8H IV 05/20/24 20:00 05/20/24 21:38 200 MLS/HR Methylprednisolone Sodium Succinate 40 mg Q6HR IV 05/20/24 18:00 Cefepime HCl 50 ml @ 12.5 mls/hr Q8H IV 05/21/24 00:00 objective Gen.: Patient lying in bed in no apparent distress. On BiPAP Head: Normocephalic, atraumatic. Eyes: EOMI/PERRLA. Ears: Normal hearing. Normal anatomy. Neck/trachea: Trachea midline, supple. Nose: Normal external anatomy. Mouth: Moist mucous membranes. Chest: Decreased air entry bilaterally. No wheezing or rhonchi. Bibasilar crackles. Cardiovascular: Positive S1, positive S2. Regular rate and rhythm. Abdomen: Positive bowel sounds in all 4 quadrants. Soft, non-tender, non- distended. : Deferred. Rectal: Deferred. Skin: Warm, dry. Intact. Extremities: 2+ radial pulses bilaterally. No lower extremity edema. Neuro: Awake, alert, oriented x3. No gross motor or sensory deficits. Cranial nerves II through XII intact. Gait not assessed. laboratory and microbiology Laboratory Tests 05/20/24 05:26 05/19/24 05:17 Test 05/19/24 05:17 Range/Units Serum Glucose 143 H 74-106 mg/dL Assessment/Plan Impression: Acute hypoxic respiratory failure Acute on chronic hypercarbic respiratory failure Multifocal pneumonia Influenza type a Nicotine dependence Morbid obesity with a BMI of 44 Anxiety Hypokalemia Events: Upgraded to HEATHER, started on BiPAP ABG reviewed, compensated. Continue IV steroids Continue bronchodilators Continue antibiotics Hydrocortisone 50 mg q.6 hours. IS. Obtain CXR in AM for interval changes. Monitor WBC. Monitor respiratory status closely - at risk for decompensation. Labs and imaging reviewed. Rest of plan as noted below. Plan: Started on BiPAP Tamiflu course for influenza type A Chest x-ray imaging report reviewed. Multifocal pneumonia. Continue antibiotics. MRSA negative Sputum cultures show normal oropharyngeal penny Blood cultures show no growth x 5 days Bronchodilators Anxiolytic as needed Monitor electrolytes. Supplement potassium. Smoking cessation discussed for greater than 10 minutes. Accu-Cheks for glycemic monitoring Prognosis: Guarded given multiple comorbidities. Condition: Critical Rest of plan per hospitalist and other consultants. A total of 35 minutes of critical care time was spent reviewing the patient record, examining the patient, making a diagnostic and therapeutic plan, discussing this plan with the medical personnel, following up on diagnostic studies and following the patient for clinical stability excluding any and all procedures. At least 50% of this time was spent in direct, [id number] contact. Thank you Dr. Hale for allowing me to participate in this patient's care. Further recommendations will depend on patient's clinical course. Please do not hesitate to contact me if you have any questions or concerns. This medical document was created using an electronic medical record system with [employer] dictation system. Although this document has been carefully reviewed, there may still be some phonetic and typographical errors. These areas are purely typographical due to imperfections of the software programs, and do not reflect any compromise in the patient's medical care. Dietary Evaluation Review Comments: 1) Consider a CCHO 45g/Cardiac diet 2) Continue current plan of care Expected Outcomes/Goals: F/U in 3-5 days Plan discussed with: Other (JUAN LUIS Bradford) Critical Care Time(min): 35 ARTHUR WEBB MD May 20, 2024 23:28
[2024-05-20 23:57] LABS: Base Excess 8.3 mmol/L (-2.0-3.0)
[2024-05-21] VITALS (26 sets, daily range): BP systolic 122–147; BP diastolic 78–94; PULSE 76–127; RESP 20–38; TEMP 98.1–98.6; O2SAT 89–100
[2024-05-21] MEDS: CEFEPIME 1GM/ 50ML 50 ML IV SCH (00:21)
[2024-05-21] MEDS: VANCOMYCIN 1GM/250ML KIT 200 ML IV ONE (03:18)
--- NOTE | 2024-05-21 04:40 | DVH ---
CHEST RADIOGRAPH Indication: fu Technique: Single frontal view of the chest was obtained COMPARISON: XY CHEST PORTABLE on DOS: 05/20/24, XY CHEST PORTABLE on DOS: 05/19/24, XY CHEST XRAY 1 EW on DOS: 05/15/24 FINDINGS: Lines and Tubes: None Lungs: Severe multifocal airspace disease. Pleura: No effusion. No pneumothorax. Cardiomediastinal contours: Unremarkable Bones: Unremarkable IMPRESSION: Severe multifocal airspace disease, unchanged.
[2024-05-21 06:07] LABS: Basophils # (auto) 0 10 ^3/uL (0-0.2); Eosinophils # (auto) 0 10 ^3/uL (0-0.8); Monocytes # (auto) 0.4 10 ^3/uL (0-1.3)
[2024-05-21 06:10] LABS: Basophils % (auto) 0.1 % (0.0-2.0); Hematocrit 30.9 % (36.0-46.0); Hemoglobin 9.9 g/dL (12.2-16.2); Lymphocytes # (auto) 0.8 10 ^3/uL (0.4-5.4); Lymphocytes % (auto) 4.8 % (10.0-50.0); Mean Corpuscular Hgb Conc. 32.2 g/dL (32.0-36.0); Monocytes % (auto) 2.6 % (0.0-12.0); Neutrophils # (auto) 14.9 10 ^3/uL (1.6-8.6); Neutrophils % (auto) 92.5 % (37.0-80.0); Nucleated Red Blood Cells % 0.1 %; Platelet Count (auto) 450 10^3/uL (140-450); Red Blood Cells 3.55 10^6/uL (4.0-5.20); Red Cell Distribution Width 15.4 % (11.8-14.3); White Blood Cell 16.1 10^3/uL (4.4-10.8)
[2024-05-21 06:16] LABS: Alanine Aminotransferase 34 U/L (7-40); Alkaline Phosphatase 86 U/L (46-116); Anion Gap 3 (5-15); Aspartate Aminotransferase 21 U/L (13-40); BUN/Creatinine Ratio 21.4 (10.0-20.0); Bilirubin, Total 0.6 mg/dL (0.2-1.0); Blood Urea Nitrogen 12 mg/dL (9-23); Calcium 8.8 mg/dL (8.7-10.4); Sodium 136 mmol/L (136-145)
[2024-05-21 06:17] LABS: Total Protein 6.9 g/dL (5.7-8.2)
[2024-05-21 06:27] LABS: Albumin 3.1 g/dL (3.2-4.8); Carbon Dioxide 37 mmol/L (20-31); Chloride 96 mmol/L (98-107); Glucose 166 mg/dL (74-106); Potassium 3.4 mmol/L (3.5-5.1)
[2024-05-21 08:11] LABS: Base Excess 13.2 mmol/L (-2.0-3.0)
--- NOTE | 2024-05-21 08:41 | DVHPN2 ---
Assessment/Plan Assessment/Plan Progress note Subjective 43-year-old female with hypertension, morbid obesity admitted for NSTEMI and flu a. patient seen by me today during rounds Persistent hypoxia, transferred to [facility] over the weekend, placed on bipap now back on HFNC. resp acidosis and met alkalosis. So far all workup only significant for Flu A. Objective Physical exam Alert, oriented x3 PERRLA on oximizer Morbidly obese Scattered rhonchi S1-S2 tachycardia Abdomen soft nontender Moving all four extremities trace extremity edema Lab Flu a positive Leukocytosis Troponin elevation Hypokalemia EKG Sinus tach with PVCs Imaging Multiple nodular opacity in chest x-ray CT chest with GGO Repeat xray with no significant improvement LE venous doppler negative CTPE negative Assessment and plan Acute hypoxic respiratory failure Influenza a Superimposed with pneumonia, possible staph aureus Obesity Hypertension Hypokalemia Type 2 MT demand ischemia titrate down o2 Maintain oxygen saturation above 94% s/p tamiflu c/w vanc and cefepime, to be extended 14 days repeat covid and flu negative MRSA swab neg Sputum culture NGTD Replete potassium c/w amlodipine and metop tartrate Pulmonary consult appreciated on HFNC on hydrocortisone 50mg q6 Q.4 albuterol and ipratropium send resp pathogen panel Lines midline Maintain potassium of 4, phosphate of 3 and magnesium of 2 Diet diabetic DVT prophylaxis Lovenox Code status full code Goals of care on limited Patient is okay with intubation 95 Minutes critical care time spent on this patient including evaluation, chart review, formulating plan and communication with team, excluding any procedures or point of care imaging Plan discussed with: Patient My Orders Orders - KENNEDY PRIEST MD Procedure Category Date Status Time Vancomycin,Trough LAB 05/21/24 Logged 09:00 Insert Midline ORDERS 05/20/24 Transmitted 13:07 Vancomycin PHA 05/20/24 In Process 1.25gm/250ml 20:00 Vancomycin,Trough LAB 05/22/24 Verified 03:00 Uric Acid LAB 05/21/24 In Process 08:11 Potassium Chl PHA 05/21/24 Logged 20meq/100ml 08:45 Basic Metabolic Panel LAB 05/22/24 Verified 04:00 Complete Blood Count LAB 05/22/24 Verified 04:00 Magnesium LAB 05/22/24 Verified 04:00 Phosphorus LAB 05/22/24 Verified 04:00 Date of Service: May 21, 2024 Billing Provider: KENNEDY PRIEST MD Common Visit Codes: [id number] INP/OBS CARE(HIGH), [id number] CARE 30-74 MIN, [id number] CARE-EACH +30MIN KENNEDY PRIEST MD May 21, 2024 08:41
[2024-05-21] MEDS: POTASSIUM CHL 20MEQ/100ML 100 ML IV ONE (09:04)
--- NOTE | 2024-05-21 19:44 | DVHPN2 ---
Progress Note - Dictate Date Seen: May 21, 2024 Medical Necessity Reason Pt with a Central, PICC or Fol: No Subjective Patient seen and examined at bedside. On BiPAP alternating with high flow oxygen Overnight events reviewed. vital signs Vital Sign Date Time Temp Pulse Resp B/P (MAP) Pulse Ox O2 Delivery O2 Flow Rate FiO2 05/21/24 19:04 90 24 100 50.0 90 05/21/24 17:55 132/81 05/21/24 16:00 98.1 98.1 05/21/24 10:00 Hi-Flow Heated NC+ Total Intake and Output 05/20/24 05/20/24 05/21/24 15:00 23:00 07:00 Intake Total 1300 ml 500 ml Balance 1300 ml 500 ml medications Current Medications Medications Dose Ordered Sig/Julio Route Start Time Stop Time Status Last Admin Dose Admin Aspirin 81 mg DAILY PO 05/10/24 10:00 05/21/24 08:53 81 MG Atorvastatin Calcium 80 mg HS PO 05/10/24 22:00 05/20/24 21:38 80 MG Metoprolol Tartrate 25 mg Q12HR PO 05/10/24 10:00 05/21/24 08:53 25 MG Acetaminophen 650 mg Q6HP PRN PO 05/10/24 08:45 05/21/24 15:04 650 MG Enoxaparin Sodium 100 mg Q12HR SC 05/10/24 10:00 UNV Lisinopril 10 mg DAILY PO 05/10/24 10:00 05/21/24 08:54 10 MG Vancomycin HCl 0 ml @ 0 mls/hr UD IV 05/11/24 09:00 Ondansetron HCl 4 mg Q6HPRN PRN IV 05/12/24 03:30 05/14/24 15:14 4 MG Albuterol 2.5 mg Q2HPRN PRN NEB 05/15/24 15:30 Guaifenesin/ Codeine Phosphate 10 ml Q4HPRN PRN PO 05/15/24 15:30 05/21/24 12:47 10 ML Hydrocortisone Sodium Succinate 50 mg Q6HR IV 05/16/24 18:00 05/21/24 17:56 50 MG Amlodipine Besylate 10 mg DAILY PO 05/17/24 10:00 05/21/24 08:53 10 MG Enoxaparin Sodium 40 mg DAILY SC 05/17/24 10:00 05/21/24 08:54 40 MG Clonazepam 0.25 mg Q12HP PRN PO 05/17/24 11:45 05/20/24 21:39 0.25 MG Levalbuterol HCl 0.625 mg Q4HR NEB 05/17/24 18:00 05/21/24 19:02 0.625 MG Ipratropium [place] 0.5 mg Q4HR NEB 05/17/24 18:00 05/21/24 19:02 0.5 MG Famotidine 20 mg BID IV 05/18/24 22:00 05/21/24 08:52 20 MG Furosemide 20 mg BIDD IV 05/20/24 06:00 05/23/24 05:59 05/21/24 17:55 20 MG Vancomycin HCl 250 ml @ 200 mls/hr Q8H IV 05/20/24 20:00 05/21/24 12:00 200 MLS/HR Cefepime HCl 50 ml @ 12.5 mls/hr Q8H IV 05/21/24 00:00 05/21/24 15:45 12.5 MLS/HR objective Gen.: Patient lying in bed in no apparent distress. On BiPAP alternating with high flow oxygen. Head: Normocephalic, atraumatic. Eyes: EOMI/PERRLA. Ears: Normal hearing. Normal anatomy. Neck/trachea: Trachea midline, supple. Nose: Normal external anatomy. Mouth: Moist mucous membranes. Chest: Decreased air entry bilaterally. No wheezing or rhonchi. Bibasilar crackles. Cardiovascular: Positive S1, positive S2. Regular rate and rhythm. Abdomen: Positive bowel sounds in all 4 quadrants. Soft, non-tender, non- distended. : Deferred. Rectal: Deferred. Skin: Warm, dry. Intact. Extremities: 2+ radial pulses bilaterally. No lower extremity edema. Neuro: Awake, alert, oriented x3. No gross motor or sensory deficits. Cranial nerves II through XII intact. Gait not assessed. laboratory and microbiology Laboratory Tests 05/21/24 05:05 Test 05/21/24 05:05 Range/Units Serum Glucose 166 H 74-106 mg/dL Assessment/Plan Impression: Acute hypoxic respiratory failure Acute on chronic hypercarbic respiratory failure Multifocal pneumonia Influenza type a Nicotine dependence Morbid obesity with a BMI of 44 Anxiety Hypokalemia Events: ABG reviewed, notable for alkalemia. On BiPAP, FiO2 100% alternating with high flow oxygen at 60 LPM, FiO2 100% PF ratio c/w severe lung injury. Monitor respiratory status closely - may require intubation. Continue IV steroids Continue bronchodilators Continue antibiotics - vancomycin/cefepime Hydrocortisone 50 mg q.6 hours. Antitussive for cough IS. Diurese w/ Lasix as tolerated Monitor renal function Monitor electrolytes. Supplement as necessary. Potassium supplementation Pepcid for GI prophylaxis. CXR reviewed, demonstrates severe multifocal airspace disease, unchanged. WBC trending down. Labs and imaging reviewed. Rest of plan as noted below. Plan: On BiPAP, FiO2 100% alternating with high flow oxygen at 60 LPM, FiO2 100% Tamiflu course for influenza type A Chest x-ray imaging report reviewed. Multifocal pneumonia. Continue antibiotics. MRSA negative Sputum cultures show normal oropharyngeal penny Blood cultures show no growth x 5 days Bronchodilators Anxiolytic as needed Monitor electrolytes. Supplement potassium. Smoking cessation discussed for greater than 10 minutes. Accu-Cheks for glycemic monitoring GI/DVT prophylaxis. Prognosis: Guarded given multiple comorbidities. Condition: Critical Rest of plan per hospitalist and other consultants. A total of 35 minutes of critical care time was spent reviewing the patient record, examining the patient, making a diagnostic and therapeutic plan, discussing this plan with the medical personnel, following up on diagnostic studies and following the patient for clinical stability excluding any and all procedures. At least 50% of this time was spent in direct, [id number] contact. Thank you Dr. Hale for allowing me to participate in this patient's care. Further recommendations will depend on patient's clinical course. Please do not hesitate to contact me if you have any questions or concerns. This medical document was created using an electronic medical record system with [employer] system. Although this document has been carefully reviewed, there may still be some phonetic and typographical errors. These areas are purely typographical due to imperfections of the software programs, and do not reflect any compromise in the patient's medical care. Dietary Evaluation Review Comments: 1) Consider a CCHO 45g/Cardiac diet 2) Continue current plan of care Expected Outcomes/Goals: F/U in 3-5 days Plan discussed with: Other (RN) Critical Care Time(min): 35 ARTHUR WEBB MD May 21, 2024 19:44
[2024-05-21] MEDS: HYDROcodone-ACET 7.5/325MG TAB PO ONE (20:11)
[2024-05-22] VITALS (28 sets, daily range): BP systolic 113–138; BP diastolic 71–85; PULSE 77–109; RESP 18–37; TEMP 97.7–98.8; O2SAT 79–97
[2024-05-22 03:31] LABS: Eosinophils # (auto) 0 10 ^3/uL (0-0.8); Eosinophils % (auto) 0.1 % (0.0-7.0); Red Cell Distribution Width 15.3 % (11.8-14.3)
[2024-05-22 03:32] LABS: Basophils # (auto) 0.1 10 ^3/uL (0-0.2); Basophils % (auto) 0.4 % (0.0-2.0); Hematocrit 32.9 % (36.0-46.0); Hemoglobin 10.6 g/dL (12.2-16.2); Lymphocytes # (auto) 0.9 10 ^3/uL (0.4-5.4); Lymphocytes % (auto) 3.9 % (10.0-50.0); Mean Corpuscular Hgb Conc. 32.3 g/dL (32.0-36.0); Mean Corpuscular Volume 86.8 fL (80.0-100.0); Monocytes # (auto) 1.3 10 ^3/uL (0-1.3); Monocytes % (auto) 5.7 % (0.0-12.0); Neutrophils # (auto) 21.1 10 ^3/uL (1.6-8.6); Neutrophils % (auto) 89.9 % (37.0-80.0); Platelet Count (auto) 547 10^3/uL (140-450); Red Blood Cells 3.79 10^6/uL (4.0-5.20); White Blood Cell 23.5 10^3/uL (4.4-10.8)
[2024-05-22 03:42] LABS: Chloride 94 mmol/L (98-107); Potassium 3.4 mmol/L (3.5-5.1); Sodium 135 mmol/L (136-145)
[2024-05-22 03:43] LABS: Anion Gap 6 (5-15); Calcium 8.7 mg/dL (8.7-10.4); Carbon Dioxide 35 mmol/L (20-31)
[2024-05-22 03:48] LABS: BUN/Creatinine Ratio 29.4 (10.0-20.0); Blood Urea Nitrogen 15 mg/dL (9-23); Glucose 188 mg/dL (74-106)
[2024-05-22 03:49] LABS: Magnesium 1.8 mg/dL (1.6-2.6)
[2024-05-22 03:50] LABS: Phosphorus 2.2 mg/dL (2.4-5.1)
--- NOTE | 2024-05-22 04:51 | DVH ---
CHEST RADIOGRAPH Indication: RESPIRATORY FAILURE Technique: Single frontal view of the chest was obtained COMPARISON: XY CHEST PORTABLE on DOS: 05/21/24, XY CHEST PORTABLE on DOS: 05/20/24, XY CHEST PORTABLE o n DOS: 05/19/24, XY CHEST PORTABLE on DOS: 05/21/24 FINDINGS: Lines and Tubes: None Lungs: Severe multifocal airspace disease. Pleura: No effusion. No pneumothorax. Cardiomediastinal contours: Unremarkable Bones: Unremarkable IMPRESSION: Severe multifocal airspace disease, unchanged.
--- NOTE | 2024-05-22 08:37 | DVHPN2 ---
Assessment/Plan Assessment/Plan Progress note Subjective 43-year-old female with hypertension, morbid obesity admitted for NSTEMI and flu a. patient seen by me today during rounds On HFNC alternating with BiPAP, ARDS picture, low treshold for intubation, will try proning Objective Physical exam Alert, oriented x3 PERRLA on oximizer Morbidly obese Scattered rhonchi S1-S2 tachycardia Abdomen soft nontender Moving all four extremities trace extremity edema Lab Flu a positive Leukocytosis Troponin elevation Hypokalemia EKG Sinus tach with PVCs Imaging Multiple nodular opacity in chest x-ray CT chest with GGO Repeat xray with no significant improvement LE venous doppler negative CTPE negative Assessment and plan Acute hypoxic respiratory failure Acute hypercarbic respiratory failure Influenza a Superimposed with pneumonia, possible staph aureus Obesity Hypertension Hypokalemia Type 2 [place] demand ischemia titrate down o2 Maintain oxygen saturation above 92% s/p tamiflu c/w vanc and cefepime, to be extended 14 days repeat covid and flu negative MRSA swab neg Sputum culture NGTD maintain net 0, lasix Replete potassium c/w amlodipine and metop tartrate Pulmonary consult appreciated on HFNC alternating with bipap on hydrocortisone 50mg q6 Q.4 albuterol and ipratropium send resp pathogen panel will prone patient today Lines midline Maintain potassium of 4, phosphate of 3 and magnesium of 2 Diet NPO on proning DVT prophylaxis Lovenox Code status full code Goals of care on limited Patient is okay with intubation 109 Minutes critical care time spent on this patient including evaluation, chart review, formulating plan and communication with team, excluding any procedures or point of care imaging Plan discussed with: Patient My Orders Orders - KENNEDY PRIEST MD Procedure Category Date Status Time Cardiac DIET 05/21/24 Transmitted Diet-2gna,Lofat,Lochol Lunch Date of Service: May 22, 2024 Billing Provider: KENNEDY PRIEST MD Common Visit Codes: [id number] INP/OBS CARE(HIGH), [id number] CARE 30-74 MIN, [id number] CARE-EACH +30MIN KENNEDY PRIEST MD May 22, 2024 08:37
[2024-05-22] MEDS: POTASSIUM CHL 20MEQ/100ML 100 ML IV ONE (09:45)
[2024-05-22 10:06] LABS: QuantiFERON-TB Gold Plus Negative (Negative)
--- NOTE | 2024-05-22 19:56 | DVHPN2 ---
Progress Note - Dictate Date Seen: May 22, 2024 Medical Necessity Reason Pt with a Central, PICC or Fol: No Subjective Patient seen and examined at bedside. On high flow supplemental oxygen Overnight events reviewed. vital signs Vital Sign Date Time Temp Pulse Resp B/P (MAP) Pulse Ox O2 Delivery O2 Flow Rate FiO2 05/22/24 18:48 99 27 94 50.0 90 05/22/24 18:47 Hi-Flow Heated NC+ 05/22/24 17:37 125/73 05/22/24 16:00 97.8 97.8 Total Intake and Output 05/21/24 05/21/24 05/22/24 15:00 23:00 07:00 Intake Total 50 ml 1500 ml 841.0 ml Output Total 500 ml Balance 50 ml 1500 ml 341.0 ml medications Current Medications Medications Dose Ordered Sig/Julio Route Start Time Stop Time Status Last Admin Dose Admin Aspirin 81 mg DAILY PO 05/10/24 10:00 05/22/24 09:43 81 MG Atorvastatin Calcium 80 mg HS PO 05/10/24 22:00 05/21/24 21:37 80 MG Metoprolol Tartrate 25 mg Q12HR PO 05/10/24 10:00 05/22/24 09:43 25 MG Acetaminophen 650 mg Q6HP PRN PO 05/10/24 08:45 05/21/24 15:04 650 MG Enoxaparin Sodium 100 mg Q12HR SC 05/10/24 10:00 UNV Lisinopril 10 mg DAILY PO 05/10/24 10:00 05/22/24 09:44 10 MG Ondansetron HCl 4 mg Q6HPRN PRN IV 05/12/24 03:30 05/14/24 15:14 4 MG Albuterol 2.5 mg Q2HPRN PRN NEB 05/15/24 15:30 Guaifenesin/ Codeine Phosphate 10 ml Q4HPRN PRN PO 05/15/24 15:30 05/22/24 17:54 10 ML Hydrocortisone Sodium Succinate 50 mg Q6HR IV 05/16/24 18:00 05/22/24 17:37 50 MG Amlodipine Besylate 10 mg DAILY PO 05/17/24 10:00 05/22/24 09:43 10 MG Enoxaparin Sodium 40 mg DAILY SC 05/17/24 10:00 05/22/24 09:44 40 MG Clonazepam 0.25 mg Q12HP PRN PO 05/17/24 11:45 05/20/24 21:39 0.25 MG Levalbuterol HCl 0.625 mg Q4HR NEB 05/17/24 18:00 05/22/24 18:40 0.625 MG Ipratropium [place] 0.5 mg Q4HR NEB 05/17/24 18:00 05/22/24 18:40 0.5 MG Famotidine 20 mg BID IV 05/18/24 22:00 05/22/24 09:44 20 MG Furosemide 20 mg BIDD IV 05/20/24 06:00 05/23/24 05:59 05/22/24 17:37 20 MG Vancomycin HCl 250 ml @ 200 mls/hr Q8H IV 05/20/24 20:00 05/22/24 11:59 200 MLS/HR Cefepime HCl 50 ml @ 12.5 mls/hr Q8H IV 05/21/24 00:00 05/22/24 15:44 12.5 MLS/HR objective Gen.: Patient lying in bed in no apparent distress. On supplemental oxygen. Head: Normocephalic, atraumatic. Eyes: EOMI/PERRLA. Ears: Normal hearing. Normal anatomy. Neck/trachea: Trachea midline, supple. Nose: Normal external anatomy. Mouth: Moist mucous membranes. Chest: Decreased air entry bilaterally. No wheezing or rhonchi. Bibasilar crackles. Cardiovascular: Positive S1, positive S2. Regular rate and rhythm. Abdomen: Positive bowel sounds in all 4 quadrants. Soft, non-tender, non- distended. : Deferred. Rectal: Deferred. Skin: Warm, dry. Intact. Extremities: 2+ radial pulses bilaterally. No lower extremity edema. Neuro: Awake, alert, oriented x3. No gross motor or sensory deficits. Cranial nerves II through XII intact. Gait not assessed. laboratory and microbiology Laboratory Tests 05/22/24 03:24 Test 05/22/24 03:24 Range/Units Serum Glucose 188 H 74-106 mg/dL Assessment/Plan Impression: Acute hypoxic respiratory failure Acute on chronic hypercarbic respiratory failure Multifocal pneumonia Influenza type a Nicotine dependence Morbid obesity with a BMI of 44 Anxiety Hypokalemia Events: On high flow oxygen at 50 LPM, FiO2 90% PF ratio c/w severe lung injury. Monitor respiratory status closely - may require intubation. Patient encouraged to lie prone or lie on the side, OK to sit up for meals. Incentive spirometry Continue IV steroids Continue bronchodilators Continue antibiotics - vancomycin/cefepime Hydrocortisone 50 mg q.6 hours. Antitussive for cough Diurese w/ Lasix as tolerated Monitor renal function Monitor electrolytes. Supplement as necessary. Potassium supplementation Pepcid for GI prophylaxis. CXR reviewed, demonstrates severe multifocal airspace disease, unchanged. Respiratory status remains tenuous, high risk for aspiration. Labs and imaging reviewed. Rest of plan as noted below. Plan: Supplemental oxygen On high flow oxygen at 50 LPM, FiO2 90% Tamiflu course for influenza type A Chest x-ray imaging report reviewed. Multifocal pneumonia. Continue antibiotics. MRSA negative Sputum cultures show normal oropharyngeal penny Blood cultures show no growth x 5 days Bronchodilators Anxiolytic as needed Monitor electrolytes. Supplement potassium. Smoking cessation discussed for greater than 10 minutes. Accu-Cheks for glycemic monitoring GI/DVT prophylaxis. Prognosis: Guarded given multiple comorbidities. Condition: Critical Rest of plan per hospitalist and other consultants. A total of 35 minutes of critical care time was spent reviewing the patient record, examining the patient, making a diagnostic and therapeutic plan, discussing this plan with the medical personnel, following up on diagnostic studies and following the patient for clinical stability excluding any and all procedures. At least 50% of this time was spent in direct, [id number] contact. Thank you Dr. Hale for allowing me to participate in this patient's care. Further recommendations will depend on patient's clinical course. Please do not hesitate to contact me if you have any questions or concerns. This medical document was created using an electronic medical record system with [employer] dictation system. Although this document has been carefully reviewed, there may still be some phonetic and typographical errors. These areas are purely typographical due to imperfections of the software programs, and do not reflect any compromise in the patient's medical care. Dietary Evaluation Review Comments: 1) Consider a CCHO 45g/Cardiac diet 2) Continue current plan of care Expected Outcomes/Goals: F/U in 3-5 days Plan discussed with: Patient, Other (JUAN LUIS Dotson) Critical Care Time(min): 35 ARTHUR WEBB MD May 22, 2024 19:56
[2024-05-23] VITALS (32 sets, daily range): BP systolic 104–150; BP diastolic 60–90; PULSE 83–110; RESP 18–92; TEMP 97.5–99.2; O2SAT 83–98
[2024-05-23 03:27] LABS: Anion Gap 4 (5-15); Potassium 3.6 mmol/L (3.5-5.1); Sodium 137 mmol/L (136-145)
[2024-05-23 03:28] LABS: Calcium 8.7 mg/dL (8.7-10.4)
[2024-05-23 03:33] LABS: Blood Urea Nitrogen 14 mg/dL (9-23)
[2024-05-23 03:35] LABS: Carbon Dioxide 38 mmol/L (20-31); Chloride 95 mmol/L (98-107); Glucose 142 mg/dL (74-106)
[2024-05-23 04:17] LABS: Eosinophils # (auto) 0 10 ^3/uL (0-0.8); Eosinophils % (auto) 0.1 % (0.0-7.0); Lymphocytes # (auto) 1.1 10 ^3/uL (0.4-5.4)
[2024-05-23 04:21] LABS: Basophils # (auto) 0.1 10 ^3/uL (0-0.2); Basophils % (auto) 0.4 % (0.0-2.0); Hemoglobin 10.7 g/dL (12.2-16.2); Lymphocytes % (auto) 5.1 % (10.0-50.0); Mean Corpuscular Hemoglobin 28.1 pg (28.0-32.0); Mean Corpuscular Hgb Conc. 32.6 g/dL (32.0-36.0); Mean Corpuscular Volume 86.1 fL (80.0-100.0); Monocytes # (auto) 1.4 10 ^3/uL (0-1.3); Monocytes % (auto) 6.6 % (0.0-12.0); Neutrophils # (auto) 18.5 10 ^3/uL (1.6-8.6); Neutrophils % (auto) 87.8 % (37.0-80.0); Platelet Count (auto) 542 10^3/uL (140-450); Red Blood Cells 3.83 10^6/uL (4.0-5.20); White Blood Cell 21.1 10^3/uL (4.4-10.8)
[2024-05-23] MEDS: FAMOTIDINE (10MG/ML) 2ML VL IV SCH (09:02)
--- NOTE | 2024-05-23 12:19 | DVHPN2 ---
Assessment/Plan Assessment/Plan Progress note Subjective 43-year-old female with hypertension, morbid obesity admitted for NSTEMI and flu a. patient seen by me today during rounds On HFNC, proning overnight with modified protocol, desat after moving likely derecruitment Objective Physical exam Alert, oriented x3 PERRLA on oximizer Morbidly obese Scattered rhonchi S1-S2 tachycardia Abdomen soft nontender Moving all four extremities trace extremity edema Lab Flu a positive Leukocytosis Troponin elevation Hypokalemia quantiferon engative covid negative EKG Sinus tach with PVCs Imaging Multiple nodular opacity in chest x-ray CT chest with GGO Repeat xray with no significant improvement LE venous doppler negative CTPE negative Assessment and plan Acute hypoxic respiratory failure Acute hypercarbic respiratory failure Moderate ARDS Influenza a Superimposed with pneumonia, possible staph aureus Obesity Hypertension Hypokalemia Type 2 [place] demand ischemia titrate down o2 Maintain oxygen saturation above 92% s/p tamiflu c/w vanc and cefepime, to be extended 14 days repeat covid and flu negative MRSA swab neg Sputum culture NGTD maintain net 0, lasix Replete potassium c/w amlodipine and metop tartrate Pulmonary consult appreciated on HFNC alternating with bipap on hydrocortisone 50mg q6 Q.4 albuterol and ipratropium send resp pathogen panel continue proning with modified protocol Lines midline Maintain potassium of 4, phosphate of 3 and magnesium of 2 Diet diabetic, heart healthy DVT prophylaxis Lovenox Code status full code Goals of care on limited Patient is okay with intubation 99 Minutes critical care time spent on this patient including evaluation, chart review, formulating plan and communication with team, excluding any procedures or point of care imaging Plan discussed with: Patient My Orders Orders - KENNEDY PRIEST MD Procedure Category Date Status Time Cardiac DIET 05/22/24 Transmitted Diet-2gna,Lofat,Lochol Lunch Famotidine Injection PHA 05/23/24 In Process (Pepcid Injection) 10:00 Vancomycin Per MIGUELINA 05/23/24 In Process Pharmacy Protoc 12:00 Vancomycin,Trough LAB 05/24/24 Verified 03:00 Basic Metabolic Panel LAB 05/24/24 Verified 03:00 Date of Service: May 23, 2024 Billing Provider: KENNEDY PRIEST MD Common Visit Codes: [id number] INP/OBS CARE(HIGH), [id number] CARE 30-74 MIN, [id number] CARE-EACH +30MIN KENNEDY PRIEST MD May 23, 2024 12:19
--- NOTE | 2024-05-23 20:07 | DVHPN2 ---
Progress Note - Dictate Date Seen: May 23, 2024 Medical Necessity Reason Pt with a Central, PICC or Fol: No Subjective Patient seen and examined at bedside. On BiPAP alternating w/ high flow supplemental oxygen Overnight events reviewed. vital signs Vital Sign Date Time Temp Pulse Resp B/P (MAP) Pulse Ox O2 Delivery O2 Flow Rate FiO2 05/23/24 19:13 92 Hi-Flow Heated NC+ 70 100 100 05/23/24 19:13 102 27 05/23/24 18:00 111/76 (88) 05/23/24 16:00 97.5 97.5 Total Intake and Output 05/22/24 05/22/24 05/23/24 14:59 22:59 06:59 Intake Total 400 ml 1350 ml 600.0 ml Balance 400 ml 1350 ml 600.0 ml medications Current Medications Medications Dose Ordered Sig/Julio Route Start Time Stop Time Status Last Admin Dose Admin Aspirin 81 mg DAILY PO 05/10/24 10:00 05/23/24 09:03 81 MG Atorvastatin Calcium 80 mg HS PO 05/10/24 22:00 05/22/24 21:38 80 MG Metoprolol Tartrate 25 mg Q12HR PO 05/10/24 10:00 05/23/24 09:03 25 MG Acetaminophen 650 mg Q6HP PRN PO 05/10/24 08:45 05/23/24 10:42 650 MG Enoxaparin Sodium 100 mg Q12HR SC 05/10/24 10:00 UNV Lisinopril 10 mg DAILY PO 05/10/24 10:00 05/22/24 09:44 10 MG Ondansetron HCl 4 mg Q6HPRN PRN IV 05/12/24 03:30 05/14/24 15:14 4 MG Albuterol 2.5 mg Q2HPRN PRN NEB 05/15/24 15:30 Guaifenesin/ Codeine Phosphate 10 ml Q4HPRN PRN PO 05/15/24 15:30 05/23/24 14:39 10 ML Hydrocortisone Sodium Succinate 50 mg Q6HR IV 05/16/24 18:00 05/23/24 18:17 50 MG Amlodipine Besylate 10 mg DAILY PO 05/17/24 10:00 05/23/24 09:04 10 MG Enoxaparin Sodium 40 mg DAILY SC 05/17/24 10:00 05/23/24 09:03 40 MG Clonazepam 0.25 mg Q12HP PRN PO 05/17/24 11:45 05/20/24 21:39 0.25 MG Levalbuterol HCl 0.625 mg Q4HR NEB 05/17/24 18:00 05/23/24 19:12 0.625 MG Ipratropium [place] 0.5 mg Q4HR NEB 05/17/24 18:00 05/23/24 19:12 0.5 MG Vancomycin HCl 250 ml @ 200 mls/hr Q8H IV 05/20/24 20:00 05/23/24 11:32 200 MLS/HR Cefepime HCl 50 ml @ 12.5 mls/hr Q8H IV 05/21/24 00:00 05/23/24 16:00 12.5 MLS/HR Famotidine 20 mg DAILY IV 05/23/24 10:00 05/23/24 09:02 20 MG objective Gen.: Patient lying in bed in no apparent distress. On BiPAP alternating w/ high flow supplemental oxygen Head: Normocephalic, atraumatic. Eyes: EOMI/PERRLA. Ears: Normal hearing. Normal anatomy. Neck/trachea: Trachea midline, supple. Nose: Normal external anatomy. Mouth: Moist mucous membranes. Chest: Decreased air entry bilaterally. No wheezing or rhonchi. Bibasilar crackles. Cardiovascular: Positive S1, positive S2. Regular rate and rhythm. Abdomen: Positive bowel sounds in all 4 quadrants. Soft, non-tender, non- distended. : Deferred. Rectal: Deferred. Skin: Warm, dry. Intact. Extremities: 2+ radial pulses bilaterally. No lower extremity edema. Neuro: Awake, alert, oriented x3. No gross motor or sensory deficits. Cranial nerves II through XII intact. Gait not assessed. laboratory and microbiology Laboratory Tests 05/23/24 03:00 Test 05/23/24 03:00 Range/Units Serum Glucose 142 H 74-106 mg/dL Assessment/Plan Impression: Acute hypoxic respiratory failure Acute on chronic hypercarbic respiratory failure Multifocal pneumonia Influenza type a Nicotine dependence Morbid obesity with a BMI of 44 Anxiety Hypokalemia Events: On BiPAP alternating with high flow oxygen at 70 LPM, FiO2 100% PF ratio c/w severe lung injury. Monitor respiratory status closely - may require intubation. Patient encouraged to lie prone or lie on the side, OK to sit up for meals. Negative testing for flu/TB. Incentive spirometry Continue bronchodilators Continue antibiotics - vancomycin/cefepime Hydrocortisone 50 mg q.6 hours. Antitussive for cough Pepcid for GI prophylaxis. Respiratory status remains tenuous, high risk for aspiration. Labs and imaging reviewed. Rest of plan as noted below. Plan: On BiPAP alternating with high flow oxygen at 70 LPM, FiO2 100% Tamiflu course for influenza type A Chest x-ray imaging report reviewed. Multifocal pneumonia. Continue antibiotics. MRSA negative Sputum cultures show normal oropharyngeal penny Blood cultures show no growth x 5 days Bronchodilators Anxiolytic as needed Monitor electrolytes. Supplement potassium. Smoking cessation discussed for greater than 10 minutes. Accu-Cheks for glycemic monitoring GI/DVT prophylaxis. Prognosis: Guarded given multiple comorbidities. Condition: Critical Rest of plan per hospitalist and other consultants. A total of 35 minutes of critical care time was spent reviewing the patient record, examining the patient, making a diagnostic and therapeutic plan, discussing this plan with the medical personnel, following up on diagnostic studies and following the patient for clinical stability excluding any and all procedures. At least 50% of this time was spent in direct, [id number] contact. Thank you Dr. Hale for allowing me to participate in this patient's care. Further recommendations will depend on patient's clinical course. Please do not hesitate to contact me if you have any questions or concerns. This medical document was created using an electronic medical record system with [employer] dictation system. Although this document has been carefully reviewed, there may still be some phonetic and typographical errors. These areas are purely typographical due to imperfections of the software programs, and do not reflect any compromise in the patient's medical care. Dietary Evaluation Review Comments: 1) Consider a CCHO 45g/Cardiac diet 2) Continue current plan of care Expected Outcomes/Goals: F/U in 3-5 days Plan discussed with: Other (JUAN LUIS Montoya) Critical Care Time(min): 35 ARTHUR WEBB MD May 23, 2024 20:07
[2024-05-24] VITALS (95 sets, daily range): BP systolic 50–174; BP diastolic 21–112; PULSE 85–123; RESP 7–38; TEMP 96.3–99.5; O2SAT 71–93
[2024-05-24] MEDS: fentaNYL Drip 2500mCg/250mlNS 250 ML IV SCH ×2 (02:00→02:27)
[2024-05-24] MEDS: SUCCINYLCHOLINE CHLORIDE 20 MG/ML 10ML VIAL IV ONE ×2 (02:11)
[2024-05-24] MEDS: ETOMIDATE (2MG/ML) 20ML VIAL IV ONE ×2 (02:11)
[2024-05-24] MEDS: MIDAZOLAM DRIP 50 mg/50mL 50 ML IV SCH ×2 (02:19→22:00)
[2024-05-24] MEDS: MIDAZOLAM DRIP 50 mg/50mL 50 ML IV ONE ×2 (02:19→03:45)
[2024-05-24] MEDS: fentaNYL Drip 2500mCg/250mlNS 250 ML IV ONE (02:27)
[2024-05-24] MEDS: PROPOFOL 100 ML IV SCH (02:36)
[2024-05-24] MEDS: PROPOFOL 100 ML IV ONE (02:36)
[2024-05-24] MEDS: ATRACURIUM BESYLATE 1,000 MG in D5W 5% 150 ML IV SCH ×2 (03:00→20:45)
[2024-05-24 03:32] LABS: Base Excess 8.2 mmol/L (-2.0-3.0)
[2024-05-24 03:41] LABS: Base Excess 10.3 mmol/L (-2.0-3.0)
[2024-05-24 03:44] LABS: Sodium 138 mmol/L (136-145)
[2024-05-24 03:45] LABS: Anion Gap 4 (5-15); Calcium 9.2 mg/dL (8.7-10.4)
[2024-05-24 03:50] LABS: BUN/Creatinine Ratio 37.3 (10.0-20.0); Blood Urea Nitrogen 19 mg/dL (9-23)
[2024-05-24 04:00] LABS: Carbon Dioxide 37 mmol/L (20-31); Chloride 97 mmol/L (98-107); Glucose 166 mg/dL (74-106); Potassium 3.4 mmol/L (3.5-5.1)
--- NOTE | 2024-05-24 04:31 | DVH ---
CHEST RADIOGRAPH Indication: INTUBATION Technique: Single frontal view of the chest was obtained Comparison: XY CHEST PORTABLE on DOS: 05/22/24 FINDINGS: Lines and Tubes: On the 1st image, the endotracheal tube is in the right mainstem bronchus. The endo tracheal tube is retracted to 2.6 cm above the karen on the 2nd image. Lungs: Diffuse bilateral consolidation, increased since prior study. Pleura: No effusion. No pneumothorax. Cardiomediastinal contours: Cardiovascular silhouette is obscured. Bones: No acute osseous abnormality. IMPRESSION: 1. Endotracheal tube retracted to 2.6 cm above the karen. 2. Worsening bilateral pulmonary opacities which may reflect worsening ARDS or pneumonia.
[2024-05-24 07:36] LABS: Base Excess 9.9 mmol/L (-2.0-3.0)
[2024-05-24] MEDS: FUROSEMIDE 100 MG/10ML VIAL IV ONE (08:15)
[2024-05-24] MEDS: VANCOMYCIN 1.25GM/250ML 250 ML IV SCH (10:23)
[2024-05-24 10:38] LABS: Base Excess 9.1 mmol/L (-2.0-3.0)
[2024-05-24] MEDS: POTASSIUM CHL 20MEQ/100ML 100 ML IV SCH (11:24)
[2024-05-24 11:28] LABS: INR 1.04 (0.9-1.15); Partial Thromboplastin Time 25.2 SEC (24.5-34.5)
--- NOTE | 2024-05-24 13:21 | DVH ---
EXAM: XY CHEST XRAY 1 VIEW TECHNIQUE: Single frontal chest radiograph CLINICAL HISTORY: HYPOXEMIA COMPARISON: XY CHEST PORTABLE on DOS: 05/24/24, XY CHEST PORTABLE on DOS: 05/22/24, XY CHEST PORTABLE o n DOS: 05/21/24 Findings/Impression: Frontal chest radiograph demonstrates no acute osseous or superficial soft tissue abnormalities. Endotracheal tube terminates 4.5 cm from the karen. The trachea is midline. The cardiac silhouette and mediastinum are within normal limits. Diffuse patchy airspace disease may reflect multifocal pneumonia, pulmonary edema, or ARDS. No pneumothorax or pleural effusions.
--- NOTE | 2024-05-24 13:53 | DVHPN2 ---
Assessment/Plan Assessment/Plan Progress note Subjective 43-year-old female with hypertension, morbid obesity admitted for NSTEMI and flu a. patient seen by me today during rounds Hypoxic overnight, intubated, sedated mechanically ventilated and started on paralytic agents. Objective Physical exam Alert, oriented x3 PERRLA on oximizer Morbidly obese Scattered rhonchi S1-S2 tachycardia Abdomen soft nontender Moving all four extremities trace extremity edema Lab Flu a positive Leukocytosis Troponin elevation Hypokalemia quantiferon engative covid negative EKG Sinus tach with PVCs Imaging Multiple nodular opacity in chest x-ray CT chest with GGO Repeat xray with no significant improvement LE venous doppler negative CTPE negative Assessment and plan Acute hypoxic respiratory failure requiring intubation Acute hypercarbic respiratory failure Severe ARDS Influenza a Superimposed with pneumonia, possible staph aureus Obesity Hypertension Hypokalemia Type 2 WI demand ischemia A/C PC vent c/w paralytics TOF lung protective ventilation possible bronch s/p tamiflu c/w vanc and cefepime, to be extended 14 days repeat covid and flu negative MRSA swab neg Sputum culture NGTD strict I&O replace lara, send UA Replete potassium hold amlodipine and metop tartrate start pressor to maintain MAP 70 Pulmonary consult appreciated on hydrocortisone 50mg q6 Q.4 albuterol and ipratropium send resp pathogen panel s/p proning place central line and a line Lines PIV Maintain potassium of 4, phosphate of 3 and magnesium of 2 Diet diabetic, heart healthy DVT prophylaxis Lovenox GI PPX protonix Code status full code Goals of care unlimited 102 Minutes critical care time spent on this patient including evaluation, chart review, formulating plan and communication with team, excluding any procedures or point of care imaging Plan discussed with: Daughter My Orders Orders - KENNEDY PRIEST MD Procedure Category Date Status Time Midazolam Drip 50 PHA 05/24/24 In Process Mg/50ml (Versed Drip 5 02:19 Vancomycin PHA 05/24/24 In Process 1.25gm/250ml 10:00 Vancomycin,Trough LAB 05/25/24 Verified 03:00 Vancomycin Per MIGUELINA 05/25/24 In Process Pharmacy Protoc 03:00 Complete Blood Count LAB 05/25/24 Verified 04:00 Norepinephrine 8 PHA 05/24/24 In Process Mg/250ml Kit 10:15 Potassium Chl PHA 05/24/24 In Process 20meq/100ml 10:15 * Picc Line Consult CONS 05/24/24 Transmitted 10:08 Date of Service: May 24, 2024 Billing Provider: KENNEDY PRIEST MD Common Visit Codes: [id number] CARE 30-74 MIN, [id number] CARE-EACH +30MIN KENNEDY PRIEST MD May 24, 2024 13:52
--- NOTE | 2024-05-24 13:58 | DVHPN2 ---
Assessment/Plan Assessment/Plan Progress note Subjective 43-year-old female with hypertension, morbid obesity admitted for NSTEMI and flu a. patient seen by me today during rounds Hypoxic overnight, intubated, sedated mechanically ventilated and started on paralytic agents. Objective Physical exam Intubated, sedated, paralyzed and mechanically ventilated Morbidly obese Mechanical breath sound S1-S2 tachycardia Abdomen soft nontender No extremity edema Lab Flu a positive Leukocytosis Troponin elevation Hypokalemia quantiferon engative covid negative EKG Sinus tach with PVCs Imaging Multiple nodular opacity in chest x-ray CT chest with GGO Repeat xray with no significant improvement LE venous doppler negative CTPE negative Assessment and plan Acute hypoxic respiratory failure requiring intubation Acute hypercarbic respiratory failure Severe ARDS Influenza a Superimposed with pneumonia, possible staph aureus Obesity Hypertension Hypokalemia Type 2 [place] demand ischemia A/C PC vent c/w paralytics TOF lung protective ventilation possible bronch s/p tamiflu c/w vanc and cefepime, to be extended 14 days repeat covid and flu negative MRSA swab neg Sputum culture NGTD strict I&O replace lara, send UA Replete potassium hold amlodipine and metop tartrate start pressor to maintain MAP 70 Pulmonary consult appreciated on hydrocortisone 50mg q6 Q.4 albuterol and ipratropium send resp pathogen panel s/p proning place central line and a line Lines PIV Maintain potassium of 4, phosphate of 3 and magnesium of 2 Diet tube feeding DVT prophylaxis Lovenox GI PPX protonix Code status full code Goals of care unlimited 102 Minutes critical care time spent on this patient including evaluation, chart review, formulating plan and communication with team, excluding any procedures or point of care imaging Plan discussed with: Patient My Orders Orders - KENNEDY PRIEST MD Procedure Category Date Status Time Midazolam Drip 50 PHA 05/24/24 In Process Mg/50ml (Versed Drip 5 02:19 Vancomycin PHA 05/24/24 In Process 1.25gm/250ml 10:00 Vancomycin,Trough LAB 05/25/24 Verified 03:00 Vancomycin Per MIGUELINA 05/25/24 In Process Pharmacy Protoc 03:00 Complete Blood Count LAB 05/25/24 Verified 04:00 Norepinephrine 8 PHA 05/24/24 In Process Mg/250ml Kit 10:15 Potassium Chl PHA 05/24/24 In Process 20meq/100ml 10:15 * Picc Line Consult CONS 12/5/24 Transmitted 10:08 Date of Service: May 24, 2024 Billing Provider: KENNEDY PRIEST MD Common Visit Codes: [id number] CARE 30-74 MIN, [id number] CARE-EACH +30MIN KENNEDY PRIEST MD May 24, 2024 13:58
[2024-05-24] MEDS: NOREPINEPHRINE 8 MG/250ML KIT 250 ML IV SCH (15:01)
[2024-05-24 15:17] LABS: Base Excess 8.7 mmol/L (-2.0-3.0)
--- NOTE | 2024-05-24 15:32 | DVHNC2 ---
Central Line Recorder of insertion practice: Photograph Finisher Occupation of ultrasonic tester: Attending Physician Indication: Hypotension Room prepared for procedure: Yes Photograph Finisher performed hand hygien: Yes Maximal sterile barrier precau: Mask/Eye shield, Sterile gown, Cap, Sterlie gloves, Large sterlie drape Skin Preparation: Chlorhexidine gluconate Skin preparation completely dr: Yes Insertion site: Right, Internal jugular Central line catheter type: [id number] dialysis Number of lumens: 3 Post Assessment: Chest X-Ray, Proper placement (confirmed with bubble, lung sliding on b/l lungs), No Pneumothorax Informed consent obtained: Yes Risks/benefits/alt described: Yes Date of Service: May 24, 2024 Billing Provider: KENNEDY PRIEST MD Cardiology Common Codes: PROCEDURE ONLY (R IJ TLC) KENNEDY PRIEST MD May 24, 2024 15:32
--- NOTE | 2024-05-24 15:33 | DVHNC2 ---
Other Procedure Procedure Right radial Arterial line Indication Distributive shock Anesthetic Purposeful sedation Prep Usual sterile fashion Success Yes Informed consent obtained: Yes Risks, benefits, and alternati: Yes Date of Service: May 24, 2024 Billing Provider: KENNEDY PRIEST MD Cardiology Common Codes: PROCEDURE ONLY KENNEDY PRIEST MD May 24, 2024 15:33
--- NOTE | 2024-05-24 15:35 | DVHNC2 ---
Date of Service: May 24, 2024 Billing Provider: KENNEDY PRIEST MD Cardiology Common Codes: PROCEDURE ONLY (Cardiac point of care ultrasound 20535) Coding Comment Comment Point of care ultrasound done today and interpreted by me Cardiac: No pericardial effusion, hyperdynamic heart, grossly normal valves, grossly normal heart chambers, IVC less than 2 cm with visible excursion on inspiration in an intubated patient, bubble study positive from right IJ triple- lumen catheter bubble seen in right ventricle Lung: No B-lines, no pleural effusion positive lung sliding on bilateral lungs KENNEDY PRIEST MD May 24, 2024 15:35
--- NOTE | 2024-05-24 15:53 | DVH ---
EXAM: XY CHEST XRAY 1 VIEW TECHNIQUE: Single frontal chest radiograph CLINICAL HISTORY: CONFIRM CENTRAL LINE PLACEMENT COMPARISON: XY CHEST XRAY 1 VIEW on DOS: 05/24/24, XY CHEST PORTABLE on DOS: 05/24/24, XY CHEST PORTABL E on DOS: 05/22/24 Findings/Impression: Frontal chest radiograph demonstrates no acute osseous or superficial soft tissue abnormalities. Endotracheal tube terminates 3.6 cm from the karen. Right IJ catheter retminear in the right atrium. The trachea is midline. The cardiac silhouette and mediastinum are obscured. Marked multifocal pneumonia, edema, and/or ARDS. No pneumothorax.
[2024-05-24] MEDS: POTASSIUM CHL 20MEQ/100ML 100 ML IV ONE (16:23)
[2024-05-24 17:22] LABS: Base Excess 4.6 mmol/L (-2.0-3.0)
[2024-05-24] MEDS: POTASSIUM PHOSPHATE 44 MEQ in D5W 5% 250 ML IV ONE (18:15)
[2024-05-24] MEDS: CEFEPIME 1GM/ 50ML 50 ML IV SCH (20:00)
[2024-05-24 20:35] LABS: Base Excess 1.2 mmol/L (-2.0-3.0)
[2024-05-24] MEDS: PHENYLEPHRINE IV 250 ML IV SCH (20:45)
[2024-05-24] MEDS: EPINEPHrine HCL 250 ML IV SCH (20:45)
[2024-05-24 20:50] LABS: COVID19 ANTIGEN SOFIA FIA NEGATIVE (NEGATIVE); Rapid Influenza A Negative (Negative); Rapid Influenza B Negative (Negative)
[2024-05-24 20:54] LABS: Base Excess 5.8 mmol/L (-2.0-3.0)
[2024-05-24] MEDS: VASOPRESSIN 20 UNITS in SODIUM CHL 0.9% 99 ML IV SCH (22:00)
--- NOTE | 2024-05-24 23:17 | DVHPN2 ---
Progress Note - Dictate Date Seen: May 24, 2024 Medical Necessity Reason Pt with a Central, PICC or Fol: No Subjective Patient seen and examined at bedside. Sedated, intubated on mechanical ventilator. Overnight events reviewed. vital signs Vital Sign Date Time Temp Pulse Resp B/P (MAP) Pulse Ox O2 Delivery O2 Flow Rate FiO2 05/24/24 18:45 97.9 119 34 110/63 (79) 82 208.2 05/24/24 18:38 100 05/24/24 10:00 Mechanical Ventilator 05/24/24 01:53 70.0 Total Intake and Output 05/23/24 05/23/24 05/24/24 15:00 23:00 07:00 Intake Total 300.0 ml 780.0 ml 936.865 ml Output Total 150 ml Balance 300.0 ml 780.0 ml 786.865 ml medications Current Medications Medications Dose Ordered Sig/Julio Route Start Time Stop Time Status Last Admin Dose Admin Enoxaparin Sodium 100 mg Q12HR SC 05/10/24 10:00 UNV Hydrocortisone Sodium Succinate 50 mg Q6HR IV 05/16/24 18:00 05/24/24 17:35 50 MG Enoxaparin Sodium 40 mg DAILY SC 05/17/24 10:00 05/24/24 09:17 40 MG Levalbuterol HCl 0.625 mg Q4HR NEB 05/17/24 18:00 05/24/24 22:26 0.625 MG Ipratropium [place] 0.5 mg Q4HR NEB 05/17/24 18:00 05/24/24 22:26 0.5 MG Vancomycin HCl 250 ml @ 200 mls/hr Q6H IV 05/24/24 10:00 05/24/24 17:34 200 MLS/HR Norepinephrine Bitartrate 250 ml @ 3.75 mls/hr Q24H IV 05/24/24 10:15 05/24/24 15:01 3.75 MLS/HR Pantoprazole Sodium 40 mg DAILY IV 05/25/24 10:00 Cefepime HCl 50 ml @ 12.5 mls/hr Q8H IV 05/24/24 20:00 05/24/24 20:00 12.5 MLS/HR Epinephrine HCl 250 ml @ 7.5 mls/hr Q24H IV 05/24/24 20:45 Phenylephrine HCl 250 ml @ 30 mls/hr Q8H20M IV 05/24/24 20:45 Fentanyl Citrate 250 ml @ 2.5 mls/hr Q24H IV 05/24/24 20:45 Atracurium Besylate 1000 mg/ Dextrose 250 ml @ 8.235 mls/ hr Q24H IV 05/24/24 20:45 Propofol 100 ml @ 3.294 mls/ hr Q24H IV 05/24/24 22:00 Midazolam HCl 50 ml @ 1 mls/hr Q24H IV 05/24/24 22:00 Vasopressin 20 units/Sodium Chloride 100 ml @ 9 mls/hr Q11H7M IV 05/24/24 22:00 objective Gen.: Patient lying in bed in medical ICU. Sedated, intubated on mechanical ventilator. Head: Normocephalic, atraumatic. Eyes: PERRLA. Ears: Normal external anatomy. Throat: Endotracheal tube and orogastric tube in place. Neck: Supple, trachea midline. Chest: Transmitted breath sounds bilaterally. Decreased air entry bilaterally. No wheezing. Bibasilar crackles. Cardiovascular: Positive S1, positive S2. Regular rate and rhythm. Abdomen: Positive bowel sounds in all 4 quadrants. Soft, nontender, nondistended. : Wong in place. Normal external genitalia. Rectal: Deferred. Skin: Warm, dry. Intact. Extremities: 2+ radial pulses bilaterally. No lower extremity edema. Neuro: Sedated. laboratory and microbiology Laboratory Tests 05/24/24 03:15 05/23/24 03:00 Test 05/24/24 03:15 Range/Units Serum Glucose 166 H 74-106 mg/dL Assessment/Plan Impression: Acute hypoxic respiratory failure Acute on chronic hypercarbic respiratory failure Multifocal pneumonia Influenza type A Nicotine dependence Morbid obesity with a BMI of 44 Anxiety Hypokalemia Acute respiratory distress syndrome. Events: Patient developed ARDS and was intubated overnight vent settings; PC mode with RR 30, Pinsp 30, PEEP 10, FiO2 100% Pt underwent central line and arterial line placement. Recommend patient be proned 18 hours/6 hours supine. Continue vent support Sedated on fentanyl, Versed and Propofol On pressors for hemodynamic support On Levophed Titrate to keep mean arterial pressure greater than 65 mmHg. Patient encouraged to lie prone or lie on the side, OK to sit up for meals. Incentive spirometry Continue bronchodilators Continue antibiotics - vancomycin/cefepime Stress dose steroids Hydrocortisone 50 mg q.6 hours. Antitussive for cough Potassium supplementation Monitor renal function Pepcid for GI prophylaxis. Respiratory status remains tenuous, high risk for aspiration. Labs and imaging reviewed. Rest of plan as noted below. Plan: s/p intubation, on mechanical ventilator vent settings; PC mode with RR 30, Pinsp 30, PEEP 10, FiO2 100% Tamiflu course for influenza type A Chest x-ray imaging report reviewed. Multifocal pneumonia. Continue antibiotics. MRSA negative Sputum cultures show normal oropharyngeal penny Blood cultures show no growth x 5 days Bronchodilators Anxiolytic as needed Monitor electrolytes. Supplement potassium. Smoking cessation discussed for greater than 10 minutes. Accu-Cheks for glycemic monitoring GI/DVT prophylaxis. Prognosis: Guarded given multiple comorbidities. Condition: Critical Rest of plan per hospitalist and other consultants. A total of 35 minutes of critical care time was spent reviewing the patient record, examining the patient, making a diagnostic and therapeutic plan, discussing this plan with the medical personnel, following up on diagnostic studies and following the patient for clinical stability excluding any and all procedures. At least 50% of this time was spent in direct, [id number] contact. Thank you Dr. Hale for allowing me to participate in this patient's care. Further recommendations will depend on patient's clinical course. Please do not hesitate to contact me if you have any questions or concerns. This medical document was created using an electronic medical record system with [employer] dictation system. Although this document has been carefully reviewed, there may still be some phonetic and typographical errors. These areas are purely typographical due to imperfections of the software programs, and do not reflect any compromise in the patient's medical care. Dietary Evaluation Review Comments: 1) Consider a CCHO 45g/Cardiac diet 2) Continue current plan of care Expected Outcomes/Goals: F/U in 3-5 days Plan discussed with: Other (RN) Critical Care Time(min): 35 ARTHUR WEBB MD May 24, 2024 23:17
[2024-05-25] VITALS (56 sets, daily range): BP systolic 65–136; BP diastolic 30–70; PULSE 94–118; RESP 0–36; TEMP 97–99.3; O2SAT 84–90
[2024-05-25 04:03] LABS: Hemoglobin 9.8 g/dL (12.2-16.2)
[2024-05-25 04:06] LABS: Hematocrit 32.7 % (36.0-46.0); Mean Corpuscular Hgb Conc. 29.8 g/dL (32.0-36.0); Mean Corpuscular Volume 93.8 fL (80.0-100.0); Platelet Count (auto) 540 10^3/uL (140-450); Red Blood Cells 3.49 10^6/uL (4.0-5.20); Red Cell Distribution Width 15.6 % (11.8-14.3)
[2024-05-25 04:47] LABS: White Blood Cell 30.9 10^3/uL (4.4-10.8)
[2024-05-25 04:48] LABS: Band Neutrophils % (manual) 0; Basophils % (manual) 0 (0.0-2.0); Blast Cells 0; Eosinophils % (manual) 0 (0-7); Metamyelocytes % 0; Myelocytes % 0; Promyelocytes % 0; Reactive Lymphocytes 0
[2024-05-25 05:17] LABS: Lymphocytes % (manual) 9 (10.0-50.0); Monocytes % (manual) 9 (0-12)
[2024-05-25 05:18] LABS: Giant Platelets Few; Large Platelets FEW; Platelet Estimate Increa; Stomatocytes Few
[2024-05-25] MEDS: PROPOFOL 100 ML IV SCH (05:34)
[2024-05-25 05:35] LABS: Alanine Aminotransferase 29 U/L (7-40); Alkaline Phosphatase 102 U/L (46-116); Anion Gap 6 (5-15); Aspartate Aminotransferase 27 U/L (13-40); BUN/Creatinine Ratio 18.2 (10.0-20.0); Carbon Dioxide 31 mmol/L (20-31); Chloride 100 mmol/L (98-107); Sodium 137 mmol/L (136-145)
[2024-05-25 05:36] LABS: Total Protein 6.2 g/dL (5.7-8.2)
[2024-05-25 05:39] LABS: Albumin 3.2 g/dL (3.2-4.8); Bilirubin, Total < 0.2 mg/dL (0.2-1.0); Blood Urea Nitrogen 25 mg/dL (9-23); Calcium 7.8 mg/dL (8.7-10.4); Glucose 165 mg/dL (74-106)
--- NOTE | 2024-05-25 07:10 | DVH ---
CHEST RADIOGRAPH Indication: Intubated Technique: Single frontal view of the chest was obtained Comparison: XY CHEST XRAY 1 VIEW on DOS: 05/24/24 FINDINGS: Lines and Tubes: Right central venous catheter terminates in the superior vena cava. Enteric tube co urses below the left hemidiaphragm and outside the field of view. The endotracheal tube terminates 4. 3 cm above the karen. Lungs: Diffuse bilateral opacities. Pleura: No effusion. No pneumothorax. Cardiomediastinal contours: Stable cardiovascular silhouette. Bones: No acute osseous abnormality. IMPRESSION: 1. Enteric tube terminates 4.3 cm above the karen. 2. Bilateral opacities which may reflect ARDS or pneumonia.
[2024-05-25] MEDS: SODIUM BICARB 8.4% 50Meq/50ml SYR Vial IV ONE (09:22)
[2024-05-25] MEDS: PANTOPRAZOLE 40 MG/10 ML VIAL INJ IV SCH (09:24)
[2024-05-25] MEDS: VASOPRESSIN 20 UNITS in SODIUM CHL 0.9% 99 ML IV SCH (09:55)
[2024-05-25] MEDS: BUDESONIDE (INHALATION) 0.5 MG/2 ML NEB ONE (10:46)
--- NOTE | 2024-05-25 11:04 | DVHDS2 ---
Discharge Summary Date of Admission May 10, 2024 at 08:36 Date of Discharge: May 25, 2024 Labs/Diagnostic Data: Laboratory Results Test 05/25/24 07:28 05/25/24 05:00 05/25/24 04:30 05/25/24 02:52 Blood Gas Specimen Type Arterial Blood Gas Sample Site Arterial line Blood Gas Patient Temperature 37.0 Arterial Blood Date Drawn [id number] Arterial Blood pH 6.798 (7.350-7.450) Arterial Blood Partial Pressure O2 60.2 mmHg (83.0-108.0) Arterial Blood Oxygen Saturation 81.7 % (94.0-98.0) Arterial Blood Oxyhemoglobin 80.5 % (94.0-98.0) Arterial Blood Carboxyhemoglobin 0.8 % (0.5-1.5) Arterial Blood Methemoglobin 0.7 % (0.0-1.5) Juan Pablo Test N/a Blood Gas Total Hemoglobin 10.90 g/dL (12.0-16.0) Blood Gas Set Respiration Rate 32.0 Blood Gas Modality Vent - p/c Blood Gas Spontaneous Rate 32 FiO2 % 100.0 Blood Gas Spontaneous Tidal Volume 200 Blood Gas Inspiratory Pressure 36.0 Blood Gas PEEP or CPAP 8.0 Blood Gas Comments i-t 0.8 Blood Gas Critical Value Read Back Yes Blood Gas Notified Whom Dr. christopher Blood Gas Notified Time [id number] Blood Gas Notified By momo Burnett rt. Random Vancomycin Level 75.7 ug/mL (5-10) Arterial Blood Partial Pressure CO2 > 180.3 mmHg (32.0-45.0) Bl Gas Inspiratory/Expiratory Ratio 1:2.8 White Blood Count 30.9 10^3/uL (4.4-10.8) Red Blood Count 3.49 10^6/uL (4.0-5.20) Hemoglobin 9.8 g/dL (12.2-16.2) Hematocrit 32.7 % (36.0-46.0) Mean Corpuscular Volume 93.8 fL (80.0-100.0) Mean Corpuscular Hemoglobin 28.0 pg (28.0-32.0) Mean Corpuscular Hemoglobin Concent 29.8 g/dL (32.0-36.0) Red Cell Distribution Width 15.6 % (11.8-14.3) Platelet Count 540 10^3/uL (140-450) Mean Platelet Volume 8.4 fL (6.9-10.8) Neutrophils (%) (Auto) % (37.0-80.0) Lymphocytes (%) (Auto) % (10.0-50.0) Monocytes (%) (Auto) % (0.0-12.0) Basophils (%) (Auto) % (0.0-2.0) Neutrophils # (Auto) 10 ^3/uL (1.6-8.6) Lymphocytes # (Auto) 10 ^3/uL (0.4-5.4) Monocytes # (Auto) 10 ^3/uL (0-1.3) Differential Total Cells Counted 100.0 (100) Neutrophils % (Manual) 82 (37.0-80.0) Band Neutrophils % (Manual) 0 Lymphocytes % (Manual) 9 (10.0-50.0) Monocytes % (Manual) 9 (0-12) Eosinophils % (Manual) 0 (0-7) Basophils % (Manual) 0 (0.0-2.0) Metamyelocytes % (manual) 0 Myelocytes % (Manual) 0 Promyelocytes % (Manual) 0 Blast Cells % (Manual) 0 Reactive Lymphocytes 0 Platelet Estimate Increa Clumped Platelets Few Large Platelets Few Giant Platelets Few Stomatocytes Few Sodium Level 137 mmol/L (136-145) Potassium Level 5.0 mmol/L (3.5-5.1) Chloride Level 100 mmol/L (98-107) Carbon Dioxide Level 31 mmol/L (20-31) Anion Gap 6 (5-15) Blood Urea Nitrogen 25 mg/dL (9-23) Creatinine 1.37 mg/dL (0.550-1.02) Glomerular Filtration Rate Calc 50 mL/min (>90) BUN/Creatinine Ratio 18.2 (10.0-20.0) Serum Glucose 165 mg/dL (74-106) Calcium Level 7.8 mg/dL (8.7-10.4) Total Bilirubin < 0.2 mg/dL (0.2-1.0) Aspartate Amino Transferase (AST) 27 U/L (13-40) Alanine Aminotransferase (ALT) 29 U/L (7-40) Alkaline Phosphatase 102 U/L (46-116) Lactate Dehydrogenase 633 U/L (120-246) Total Protein 6.2 g/dL (5.7-8.2) Albumin 3.2 g/dL (3.2-4.8) Vancomycin Level Trough 91.0 ug/mL (5-10) Test 05/24/24 20:36 05/24/24 19:30 05/24/24 11:02 05/24/24 03:15 Arterial Blood HCO3 40.5 mmol/L (21.0-28.0) Arterial Blood Base Excess 5.8 mmol/L (-2.0-3.0) Influenza Type A Antigen Negative (Negative) Influenza Type B Antigen Negative (Negative) SARS-CoV-2 Antigen (Rapid) Negative (NEGATIVE) Prothrombin Time 11.0 sec (9.3-11.8) Prothrombin Time INR 1.04 (0.9-1.15) Activated Partial Thromboplast Time 25.2 SEC (24.5-34.5) Magnesium Level 2.0 mg/dL (1.6-2.6) Test 05/24/24 02:05 05/23/24 03:00 05/22/24 03:24 05/21/24 07:55 Blood Gas Liter Flow 70.00 Eosinophils (%) (Auto) 0.1 % (0.0-7.0) Eosinophils # (Auto) 0 10 ^3/uL (0-0.8) Basophils # (Auto) 0.1 10 ^3/uL (0-0.2) Nucleated Red Blood Cells 0.0 % Phosphorus Level 2.2 mg/dL (2.4-5.1) Blood Gas EPAP 5 Blood Gas IPAP 12 Test 05/21/24 05:05 05/19/24 05:17 05/18/24 11:00 05/16/24 19:40 Uric Acid 3.2 mg/dL (3.1-7.8) B-Type Natriuretic Peptide 33.69 pg/mL (0-100) Estimated GFR () 163 mL/min Estimated GFR (Non- 135 mL/min HIV (1&2) Antibody Negative (Negative) TB Test (QFT) Gold Plus Negative (Negative) TB Test (QFT) Nil 0.02 IU/mL (.) TB Test (QFT) Mitogen 2.53 IU/mL (.) TB Test (QFT) Antigen 1 0.02 IU/mL (.) TB Test (QFT) Antigen 2 0.02 IU/mL (.) TB Test (QFT) Criteria Comment (.) D-Dimer, Quantitative 11.19 mg/L FEU (0.0-0.49) Test 05/15/24 06:24 05/11/24 15:30 05/10/24 10:41 05/10/24 07:13 POC Glucose 125 mg/dl (70-106) Urine Color Yellow (Yellow) Urine Clarity Clear (Clear) Urine pH 6.5 (5.0-9.0) Urine Specific Lena 1.027 (1.001-1.035) Urine Protein 2+ (Negative) Urine Ketones Negative (Negative) Urine Blood Trace /uL (Negative) Urine Nitrite Negative (Negative) Urine Bilirubin Negative (Negative) Urine Urobilinogen 2 mg/dL (Negative) Urine Leukocyte Esterase Negative /uL (Negative) Urine RBC 4 /hpf (0 - 4) Urine WBC 4 /hpf (0 - 5) Urine Squamous Epithelial Cells None seen /hpf (<5) Urine Bacteria None seen /hpf (None Seen) Urine Mucus Few (None Seen) Urine Glucose Normal mg/dL (Normal) Troponin I High Sensitivity 135 ng/L (</=34) Lactic Acid Level 1.7 mmol/L (0.4-2.0) Test 05/10/24 06:36 Beta HCG, Quantitative 0.1 mIU/mL (1.5-4.2) Other Laboratory Tests 05/25/24 02:52 Brief Hx & Hospital Course: 43-year-old female admitted for flu pneumonia, initially requires oxygen non- rebreather, switch to high-flow with significant improvement, day 4 of admission titrated down to simple mask, however patient persistently requires oxygen supplementation to keep SpO2 above 92%. Follow up by Pulmonary. Further workup done to rule out PE, CTPE negative, echo with normal RV function, recent respiratory panel and cultures all negative. CT showed multilobar ground-glass opacity. Patient was continued on oxygen supplementation however after being stable for awhile, patient requires further oxygen requirement which prompted her to be switched to high-flow nasal cannula. Patient was also switched to stress dose steroid, antibiotic extended to 14 days. Patient then was on high- flow nasal cannula for a couple of days, with proning which shows significant improvement. Overnight patient becomes hypoxic and requires intubation, patient was intubated, mechanical ventilated, started on sedation and paralytics. Patient also had sedation related hypotension, started on pressors, a line and central line placed, Wong replaced. Patient was prone with no significant improvement overnight. Patient also became severely hypercapnic with acidemia. Patient showed signs of elevated pulmonary artery pressure, however clinically dry, urine output was low, patient developed CLAYTON, patient was initially on Lasix and later on was given IV fluid for euvolemia monitored by PPV and CVP. Due to refractory hypoxemia and hypercapnia, poor lung compliance, severe ARDS, decision made to transfer patient to higher level of care for ECMO. Patient with single organ failure is a good candidate for ECMO, social service consulted for transfer. Cardiology consulted for placement of [facility]. Patient would benefit from inhaled nitric oxide and possible ECMO placement and CRRT, which we will require higher level of care. Condition at Discharge: Higher Level of Care Final Diagnosis/Problems List ARDS 2/2 flu pneumonia Discharge Disposition: Acute Care Facility 50 Discharge Statement: "Patient was advised to return to the ER or call 911 if any headaches, dizziness, shortness of breath, chest pain, abdominal pain, bleeding, fevers, or worsening of medical condition. Patient was counseled about treatment plan, medications, possible side effects, patientverbalized understanding. All questions were answered to the best of my ability. This discharge took greater then 30 minutes in planning, reviewing documentation, counseling the patient, and discussing with other team members." ASSESSMENT ASSESSMENT Assessment Shock likely cardiogenic Acute hypoxic respiratory failure requiring intubation Acute hypercarbic respiratory failure Severe ARDS Influenza a Superimposed with pneumonia, possible staph aureus Obesity Hypokalemia Type 2 UT demand ischemia CLAYTON prerenal Date of Service: May 25, 2024 Billing Provider: KENNEDY PRIEST MD Common Visit Codes: [id number] CARE 30-74 MIN, [id number] CARE-EACH +30MIN Coding Comment Comment 120 minutes critical care time spent on this patient including evaluation, chart review, formulating plan and communication with team, excluding any procedures or point of care imaging KENNEDY PRIEST MD May 25, 2024 11:04
[2024-05-25] MEDS: MEROPENEM 1GM IVPB 50 ML IV ONE (11:27)
[2024-05-25] MEDS: SODIUM BICARB 50mEq/50ml Vial 150 ML in D5W 5% 1,000 ML IV SCH (11:27)
[2024-05-25] MEDS ORDERED: SODIUM BICARB 8.4% 50Meq/50ml SYR Vial IV ONE (12:00)
--- NOTE | 2024-05-25 12:25 | PRN ---
Misceleneous Note Note Note Patient is accepted to [facility] for ECMO, patient will be airlifted. Discussed with family risk and benefit. They express nderstanding and would like to proceed with transfer. KENNEDY PRIEST MD May 25, 2024 12:25
--- NOTE | 2024-05-25 16:23 | DVHSR ---
APPROVED REPORT EXAM: Two-dimensional and M-mode echocardiogram with Doppler and color Doppler. Blood Pressure: 119/66 mmHg INDICATION SHOCK RISK FACTORS Height: 62, Weight: 240 DIMENSIONS LVDd3.7 (3.8-5.7cm)LA (2D)3.5 (1.9-4.0cm)Aortic Root2.5 (2.0-3.7cm) LVDs2.4 (2.5-4.0cm)LA (MM) (1.9-4.0cm)Aortic Cusp Exc1.7 (1.5-2.0cm) EF (%) 65.0 (55-70%)Rt. Atrium4.1 (1.9-4.0cm)Asc. Aorta cm IVSd1.0 (0.7-1.1cm)RV (D) (1.8-2.4cm) PWd1.0 (0.7-1.1cm) Mitral Valve MitralMitral Stenosis E wave1.11m/sMV Mean GR.mmHg A wave0.58m/sMV Peak GR.mmHg E/A ratio1.92D MVAcm2 DECEL [id number] 1/2 Clau95ei IVRTmsDop MVA4.86cm2 Aortic Valve Aortic ValveAortic Stenosis V11.79m/Judith Mean GR.10mmHg V22.28m/Judith Peak GR.21mmHg LVOT Diameter1.8 (1.8-2.4cm)Doppler AVA2.00cm2 Pulmonic Valve V21.44m/s Tricuspid Valve TR Velocity3.20m/s [id number] Other Information Technically limited study due to patient on a vent. Conclusion Normal left ventricular size and dimension. Hyperdynamic left ventricular estimated ejection fractio n 65%. There is normal diastolic function. Normal right ventricular size and dimension. Normal right ventricular systolic function. Moderately to severely elevated right ventricular systolic pressure 59 mm of mercury. Normal-sized left atrium. [id number] dilated right atrium. Normal aortic valve structure and function. Normal mitral valve structure and function. Normal tricuspid valve structure and function. The pulmonary valve is grossly normal. No pericardial effusion.
--- NOTE | 2024-05-25 17:31 | DVHPN2 ---
Progress Note - Dictate Date Seen: May 25, 2024 Medical Necessity Reason Pt with a Central, PICC or Fol: No Subjective Patient seen and examined at bedside. Sedated, intubated on mechanical ventilator. Overnight events reviewed. vital signs Vital Sign Date Time Temp Pulse Resp B/P (MAP) Pulse Ox O2 Delivery O2 Flow Rate FiO2 05/25/24 12:30 97.5 105 28 104/50 (68) 88 207.5 109/60 (76) 05/25/24 12:00 100 05/25/24 10:00 Mechanical Ventilator 05/24/24 01:53 70.0 Total Intake and Output 05/24/24 05/24/24 05/25/24 15:00 23:00 07:00 Intake Total 820.432 ml 1244.079 ml 1311.135 ml Output Total 1550 ml 500 ml Balance 820.432 ml -305.921 ml 811.135 ml medications Current Medications Medications Dose Ordered Sig/Julio Route Start Time Stop Time Status Last Admin Dose Admin Enoxaparin Sodium 100 mg Q12HR SC 05/10/24 10:00 UNV Hydrocortisone Sodium Succinate 50 mg Q6HR IV 05/16/24 18:00 05/25/24 06:13 50 MG Enoxaparin Sodium 40 mg DAILY SC 05/17/24 10:00 05/25/24 09:25 40 MG Levalbuterol HCl 0.625 mg Q4HR NEB 05/17/24 18:00 05/25/24 10:46 0.625 MG Ipratropium [place] 0.5 mg Q4HR NEB 05/17/24 18:00 05/25/24 10:45 0.5 MG Norepinephrine Bitartrate 250 ml @ 3.75 mls/hr Q24H IV 05/24/24 10:15 05/25/24 10:32 56.25 MLS/HR Pantoprazole Sodium 40 mg DAILY IV 05/25/24 10:00 05/25/24 09:24 40 MG Epinephrine HCl 250 ml @ 7.5 mls/hr Q24H IV 05/24/24 20:45 Phenylephrine HCl 250 ml @ 30 mls/hr Q8H20M IV 05/24/24 20:45 05/25/24 08:13 30 MLS/HR Fentanyl Citrate 250 ml @ 2.5 mls/hr Q24H IV 05/24/24 20:45 05/25/24 08:24 35 MLS/HR Atracurium Besylate 1000 mg/ Dextrose 250 ml @ 8.235 mls/ hr Q24H IV 05/24/24 20:45 05/24/24 20:45 14.823 MLS/HR Propofol 100 ml @ 3.294 mls/ hr Q24H IV 05/24/24 22:00 05/25/24 10:33 32.94 MLS/HR Midazolam HCl 50 ml @ 1 mls/hr Q24H IV 05/24/24 22:00 05/25/24 10:34 15 MLS/HR Vasopressin 20 units/Sodium Chloride 100 ml @ 9 mls/hr Q11H7M IV 05/24/24 22:00 Meropenem 50 ml @ 17 mls/hr Q8H IV 05/25/24 18:00 Vasopressin 20 units/Sodium Chloride 100 ml @ 9 mls/hr Q11H7M IV 05/25/24 08:45 05/25/24 09:55 9 MLS/HR Budesonide 0.5 mg BID NEB 05/25/24 22:00 Sodium Bicarbonate 150 ml/Dextrose 1,150 ml @ 100 mls/hr [id number] IV 05/25/24 10:15 05/25/24 11:27 100 MLS/HR objective Gen.: Patient lying in bed in medical ICU. Sedated, intubated on mechanical ventilator. Head: Normocephalic, atraumatic. Eyes: PERRLA. Ears: Normal external anatomy. Throat: Endotracheal tube and orogastric tube in place. Neck: Supple, trachea midline. Chest: Transmitted breath sounds bilaterally. Decreased air entry bilaterally. No wheezing. Bibasilar crackles. Cardiovascular: Positive S1, positive S2. Regular rate and rhythm. Abdomen: Positive bowel sounds in all 4 quadrants. Soft, nontender, nondistended. : Wong in place. Normal external genitalia. Rectal: Deferred. Skin: Warm, dry. Intact. Extremities: 2+ radial pulses bilaterally. No lower extremity edema. Neuro: Sedated. laboratory and microbiology Laboratory Tests 05/25/24 02:52 Test 05/25/24 02:52 Range/Units Serum Glucose 165 H 74-106 mg/dL Assessment/Plan Impression: Acute hypoxic respiratory failure Acute on chronic hypercarbic respiratory failure Multifocal pneumonia Influenza type A Nicotine dependence Morbid obesity with a BMI of 44 Anxiety Hypokalemia Acute respiratory distress syndrome. Events: Remains on vent at max settings. vent settings; PC mode with RR 32, Pinsp 36, PEEP 8, FiO2 100% Poor oxygenation Poor ventilation ABG notable for acidemia Sodium bicarb amps given Continue vent support Sedated on fentanyl, Versed and Propofol On multiple pressors for hemodynamic support On Levophed, vasopressin, Ramone-Synephrine Titrate to keep mean arterial pressure greater than 65 mmHg. Patient encouraged to lie prone or lie on the side, OK to sit up for meals. Continue bronchodilators Continue antibiotics Antitussive for cough Pepcid for GI prophylaxis. Respiratory status remains tenuous, high risk for aspiration. Plan to transfer for [facility] for ECMO. Labs and imaging reviewed. Rest of plan as noted below. Plan: s/p intubation, on mechanical ventilator vent settings; PC mode with RR 32, Pinsp 36, PEEP 8, FiO2 100% Tamiflu course for influenza type A Chest x-ray imaging report reviewed. Multifocal pneumonia. Continue antibiotics. MRSA negative Sputum cultures show normal oropharyngeal penny Blood cultures show no growth x 5 days Bronchodilators Anxiolytic as needed Monitor renal function. Monitor electrolytes. Supplement as necessary. Smoking cessation discussed for greater than 10 minutes. Accu-Cheks for glycemic monitoring GI/DVT prophylaxis. Prognosis: Guarded given multiple comorbidities. Condition: Critical Rest of plan per hospitalist and other consultants. A total of 35 minutes of critical care time was spent reviewing the patient record, examining the patient, making a diagnostic and therapeutic plan, discussing this plan with the medical personnel, following up on diagnostic studies and following the patient for clinical stability excluding any and all procedures. At least 50% of this time was spent in direct, [id number] contact. Thank you Dr. Hale for allowing me to participate in this patient's care. Further recommendations will depend on patient's clinical course. Please do not hesitate to contact me if you have any questions or concerns. This medical document was created using an electronic medical record system with [employer] system. Although this document has been carefully reviewed, there may still be some phonetic and typographical errors. These areas are purely typographical due to imperfections of the software programs, and do not reflect any compromise in the patient's medical care. Dietary Evaluation Review Comments: 1) Consider a CCHO 45g/Cardiac diet 2) Continue current plan of care Expected Outcomes/Goals: F/U in 3-5 days Plan discussed with: Other (JUAN LUIS Montoya) Critical Care Time(min): 35 ARTHUR WEBB MD May 25, 2024 17:31
[2024-05-25] MEDS ORDERED: MEROPENEM 1GM IVPB 50 ML IV SCH (18:00)
[2024-05-25] MEDS ORDERED: BUDESONIDE (INHALATION) 0.5 MG/2 ML NEB NEB SCH (22:00)
== END 2024-05-25 12:50 | disposition short-term general hospital (02) | DRG 133 ==
LOC: EDBD 06:02 → ER 06:02 → TELE 08:36 → TELE-CENTR 05-13 18:49 → TELE-EAST 05-18 13:37 → DOU IN ICU 05-20 20:12 → ICU CENTRL 05-24 02:27
PROVIDERS: ADMIT Hospitalist; ATTEND Student in an Organized Health Care Education/Training Program
PROC: 5A0935A Assistance with Respiratory Ventilation, Less than 24 Consecutive Hours, High Flow/Velocity Cannula (ICD-10-PCS; 2024-05-12)
PROC: 5A09357 Assistance with Respiratory Ventilation, Less than 24 Consecutive Hours, Continuous Positive Airway Pressure (ICD-10-PCS; 2024-05-20)
PROC: 5A09357 Assistance with Respiratory Ventilation, Less than 24 Consecutive Hours, Continuous Positive Airway Pressure (ICD-10-PCS; 2024-05-21)
PROC: 5A0935A Assistance with Respiratory Ventilation, Less than 24 Consecutive Hours, High Flow/Velocity Cannula (ICD-10-PCS; 2024-05-21)
PROC: 5A0935A Assistance with Respiratory Ventilation, Less than 24 Consecutive Hours, High Flow/Velocity Cannula (ICD-10-PCS; 2024-05-22)
PROC: 5A0935A Assistance with Respiratory Ventilation, Less than 24 Consecutive Hours, High Flow/Velocity Cannula (ICD-10-PCS; 2024-05-23)
PROC: 05HM33Z Insertion of Infusion Device into Right Internal Jugular Vein, Percutaneous Approach (ICD-10-PCS; principal; 2024-05-24)
PROC: 5A1945Z Respiratory Ventilation, 24-96 Consecutive Hours (ICD-10-PCS; 2024-05-24)
PROC: 03HY32Z Insertion of Monitoring Device into Upper Artery, Percutaneous Approach (ICD-10-PCS; 2024-05-24)
PROC: 0BH17EZ Insertion of Endotracheal Airway into Trachea, Via Natural or Artificial Opening (ICD-10-PCS; 2024-05-24)
DX: J96.01 Acute respiratory failure with hypoxia (principal); R57.0 Cardiogenic shock; J10.00 Influenza due to other identified influenza virus with unspecified type of pneumonia; I21.A1 Myocardial infarction type 2; J15.211 Pneumonia due to Methicillin susceptible Staphylococcus aureus; E87.4 Mixed disorder of acid-base balance; D64.9 Anemia, unspecified; E11.65 Type 2 diabetes mellitus with hyperglycemia; N17.9 Acute kidney failure, unspecified; Z20.822 Contact with and (suspected) exposure to COVID-19; E66.01 Morbid (severe) obesity due to excess calories; Z68.41 Body mass index [BMI] 40.0-44.9, adult; F41.9 Anxiety disorder, unspecified; E87.6 Hypokalemia; I95.2 Hypotension due to drugs; T42.75XA Adverse effect of unspecified antiepileptic and sedative-hypnotic drugs, initial encounter; I10 Essential (primary) hypertension; I25.10 Atherosclerotic heart disease of native coronary artery without angina pectoris; J10.1 Influenza due to other identified influenza virus with other respiratory manifestations; J10.01 Influenza due to other identified influenza virus with the same other identified influenza virus pneumonia; Z79.4 Long term (current) use of insulin; Z79.899 Other long term (current) drug therapy; Y92.89 Other specified places as the place of occurrence of the external cause
CPT/HCPCS: 36415; 36600; 71045; 71250; 71275; 80048; 80053; 80069; 80202; 81001; 82565; 82805; 82962; 83605; 83615; 83735; 83880; 84100; 84484; 84550; 84702; 85007; 85025; 85027; 85379; 85610; 85730; 86703; 87040; 87070; 87081; 87205; 87426; 87804; 93005; 93306; 93970; 94002; 94003; 94640; 94660; 99291; G0378; J0330; J0692; J1815; J1885; J2185; J2405; J2470; J2704; J3480; J3490; J7060